=== PATIENT | female | born 1945 | race Hispanic/Latino ===

== ENCOUNTER 2017-07-03 09:19 | Emergency (ER) | payer OTHER ==
--- OUTSIDE RECORDS SUMMARY | 2017-07-03 09:20 | XMS REPORT | Clinical Summary ---
:1945 Author Organization [facility] Address [address] [place] [address] Care Team Providers Name Role Phone Jennifer Jennings MD Primary Care Provider Allergies Active Allergy Reactions Severity Noted Date Comments Aspirin 06/30/2016 Ciprofloxacin 06/30/2016 Meperidine 06/30/2016 Egg Derived 06/30/2016 Levofloxacin 06/30/2016 Milk Containing Products 06/30/2016 Morphine 06/30/2016 Penicillins 06/30/2016 Pineapple 06/30/2016 Hydrocodone-Acetaminophen 06/30/2016 Current Medications Prescription Sig. Disp. Refills Start Date End Date Status bisoprolol 5 mg daily. 05/13/2016 Active (ZEBETA) 5 MG tablet dicyclomine 20 mg daily. 06/17/2016 Active (BENTYL) 20 mg tablet omeprazole 40 mg daily. 05/23/2016 Active (PriLOSEC) 40 MG capsule CREON 24,000 units 06/03/2016 Active 24,000-76,000 of lipase 4 -120,000 unit (four) times a capsule,delayed day. release(DR/EC) capsule pravastatin Take 40 mg by Active (PRAVACHOL) 40 MG mouth daily. tablet cholecalciferol, Take 1,000 Active vitamin D3, Units by mouth (VITAMIN D3) 1,000 daily. unit tablet linaclotide Take 145 mcg Active (LINZESS) 145 mcg by mouth daily capsule before breakfast. gabapentin TAKE ONE-HALF 21 tablet 1 10/21/2016 Active (NEURONTIN) 600 mg TABLET BY tablet MOUTH 3 TIMES A DAY FOR 14 DAYS traMADol (ULTRAM) Take 1 tablet 40 tablet 0 07/22/2016 08/05/2016 50 mg tablet (50 mg total) by mouth every 6 (six) hours as needed for severe pain for up to 14 days. gabapentin Take 0.5 21 tablet 0 07/22/2016 08/05/2016 (NEURONTIN) 600 mg tablets (300 tablet mg total) by mouth 3 (three) times a day for 14 days. docusate sodium Take 1 capsule 60 capsule 0 07/22/2016 08/21/2016 (COLACE) 100 MG (100 mg total) capsule by mouth 2 (two) times a day for 30 days. gabapentin 08/12/2016 10/18/2016 Discontinued (NEURONTIN) 600 mg tablet traMADol (ULTRAM) Take 50 mg by 08/17/2016 Discontinued 50 mg tablet mouth every 6 (six) hours as needed for moderate pain. traMADol (ULTRAM) Take 1 tablet 30 tablet 0 08/17/2016 09/16/2016 50 mg tablet (50 mg total) by mouth every 6 (six) hours as needed for moderate pain for up to 30 days. Active Problems Problem Noted Date Nodule of right lung 07/21/2016 Encounters Date Type Specialty Care Team Description 11/16/2016 Refill Cardiothoracic [facility] Sharita Charles, ROLL CAPPER 10/21/2016 Telephone Cardiothor[facility] Sharita Charles, ROLL CAPPER 10/18/2016 Refill Cardiothoracic Dionne Donis, ROLL CAPPER 09/21/2016 Telephone Cardiothoracic Dionne Donis, ROLL CAPPER 09/20/2016 Refill Cardiothoracic [facility] Surgery Sharita Charles, ROLL CAPPER 08/17/2016 Office Visit Cardiothoracic Nelson Dailey follow-up examination (Primary Dx); Surgery MD Corazon Metastatic breast cancer; Malignant neoplasm metastatic to right lung; Nodule of right lung 08/13/2016 Telephone Cardiothoracic Yoselin Cast Surgery MA 07/24/2016 Telephone Cardiothoracic Nelson Dailey MD 07/23/2016 Telephone Cardiothoracic Nelson Dailey MD 07/22/2016 Patient Outreach Quality Genie Summers RN 07/21/2016 Hospital Cardiology [facility] - Encounter MD Corazon 07/22/2016 07/21/2016 Anesthesia Event Cardiothoracic Renu Hahn Surgery Angelina, LANDSCAPE ENGINEER 07/21/2016 Procedure Pass Cardiothoracic Surgery 07/21/2016 Surgery Cardiothoracic Nelson Dailey ROBOTIC ASSISTED Surgery MD Corazon THORACOSCOPIC RIGHT LOWER LOBE WEDGE RESECTION 07/20/2016 Telephone Cardiothoracic [facility], Dionne Charles NP 07/09/2016 Hospital Procedural Cardiology Nelson Dailey Lung nodule; Encounter MD Corazon Essential hypertension; Hyperlipidemia, unspecified hyperlipidemia type; Preop examination 07/09/2016 [facility] Encounter MD Corazon 07/09/2016 [facility] MD Corazon 07/09/2016 [facility] MD Corazon after 07/02/2016 Family History Medical History Relation Name Comments Colon cancer Father Alzheimer's disease Mother Diabetes Mother Breast cancer Sister Pancreatic cancer Sister Breast cancer Sister Parkinsonism Sister Breast cancer Sister Tongue cancer Sister Relation Name Status Comments Father Mother Sister Sister Sister Social History Tobacco Use Types Packs/Day Years Used Date Never Smoker Alcohol Use Drinks/Week oz/Week Comments No Sex Assigned at Date Recorded Not on file Last Filed Vital Signs Vital Sign Reading Time Taken Blood Pressure 145/67 08/17/2016 10:14 AM CDT Pulse 68 08/17/2016 10:14 AM CDT Temperature 36.3 C (97.3 F) 08/17/2016 10:14 AM CDT Respiratory Rate 18 07/22/2016 11:03 AM CDT Oxygen Saturation 97% 08/17/2016 10:14 AM CDT Inhaled Oxygen Concentration - - Weight 65.2 kg (143 lb 12.8 oz) 08/17/2016 10:14 AM CDT Height 149.9 cm (4' 11") 08/17/2016 10:14 AM CDT Body Mass Index 29.04 08/17/2016 10:14 AM CDT Plan of Treatment Health Maintenance Due Date Last Done Comments COLONOSCOPY 12/21/1993 MAMMOGRAM 12/21/1993 ZOSTER VACCINE 2003 PNEUMOCOCCAL POLYSACCHARIDE VACCINE AGE 65 AND OVER 12/21/2008 PNEUMOCOCCAL-13 12/21/2008 INFLUENZA VACCINE 11/17/2016 Implants Implanted Type Area Contract Assistant Device Expiration Model / Identifier Date Serial / Lot Kit Selnt Plrl Air Leak 4ml Strl Progel - [id number] Surgical N/A: N/A [employer] [id number] / Implanted: 07/21/2016 (Quantity not on file) Implants; / Expanders; Extenders; Surgical Wires Procedures Procedure Name Priority Date/Time Associated Diagnosis Comments CENTRAL LINE Routine 07/21/2016 9:11 AM CDT Procedure Note - Renu Hahn CRNA - 07/21/2016 9:11 AM CDT Central line Performed by: RENU HAHN Authorized by: YANNI DAVEY Patient Location: OR Staff: Anesthesiologist: YANNI DAVEY Resident/LANDSCAPE ENGINEER: RENU HAHN Performed by: Resident/LANDSCAPE ENGINEER Preprocedure:patient identified, IV checked, site and side verified, risks and benefits discussed, procedure verified, surgical consent complete, patient position confirmed, monitors and equipment checked and pre-op evaluation complete MSBT: antiseptic used during central venous catheter insertion, all elements of maximal sterile barrier technique followed, hand hygiene performed prior to central venous catheter insertion, cap/gown used by other personnel during central venous catheter insertion, solutions labeled and all ports not used during insertion clamped Indications: Indications: Vascular access Anesthesia: Anesthesia: General Procedure details: Patient position: Supine Catheter Type: Single lumen Catheter Size: 8 Fr Catheter Site: internal jugular vein Catheter site laterality: Right Pre-procedure: Landmarks identified Ultrasound guidance used: Yes Ultrasound image saved: No Number of attempts: 1 Successful placement: Yes Guidewire removal: Guidewire removal is confirmed Guidewire removal witnessed by: ROMAINE MCCALL Post-procedure: Post-procedure: line sutured, sterile dressing applied per protocol and ports flushed with saline Post-procedure: Blood cleaned with CHG and sterile caps on all hubs Assessment: Blood return through all ports and free fluid flow Patient tolerance: Patient tolerated the procedure well with no immediate complications ARTERIAL LINE Routine 07/21/2016 9:11 AM CDT Procedure Note - Renu Hahn CRNA - 07/21/2016 9:10 AM CDT Arterial line Performed by: RENU HAHN Authorized by: YANNI DAVEY Patient Location: Pre-op Staff: Anesthesiologist: YANNI DAVEY Resident/LANDSCAPE ENGINEER: RENU HAHN Performed by: Resident/SAMMY Pre-procedure: patient identified, IV checked, site and side verified, risks and benefits discussed, procedure verified, surgical consent complete, patient position confirmed, monitors and equipment checked and pre-op evaluation complete MSBT: antiseptic used, all elements of maximal sterile barrier technique followed, hand hygiene performed, cap/gown used by other personnel and solutions labeled Indications: Indications: multiple ABGs and hemodynamic monitoring Anesthesia: Anesthesia: Local infiltration Procedure Details: Arterial Line placement: Placed pre-induction Line placement site: Radial Line placement side: Left Arterial line gauge: 20 G Number of attempts: 1 Ultrasound guidance used: No Post-procedure: Post-procedure: Sterile dressing applied Post procedure circulation, sensation, movement: Normal Patient tolerance: Patient tolerated the procedure well with no immediate complications ANESTHESIA INTUBATION Routine 07/21/2016 9:10 AM CDT Procedure Note - Renu Hahn CRNA - 07/21/2016 9:09 AM CDT Airway Performed by: YANNI DAVEY Authorized by: YANNI DAVEY Location: OR Urgency: Elective Difficult Airway: No Resident/LANDSCAPE ENGINEER: RENU HAHN Performed by: resident/LANDSCAPE ENGINEER Preoxygenated with 100% O2: Yes C-spine Precautions Maintained Throughout: Yes Mask Ventilation: Easy mask Final Airway Type: Endotracheal airway Final Endotracheal Airway: ETT - double lumen left Cuffed: Yes Technique Used: Direct laryngoscopy Insertion Site: Oral Blade Type: Flanagan Laryngoscope Blade/Videolaryngoscope Blade Size: 2 ETT Double Lumen (fr): 37 Cuff at minimum occlusion pressure: Yes Measured from: Lips Placement Verified by: CO2 detection, direct visualization, equal breath sounds and fiber optic visualization Laryngoscopic view: Grade I - full view of glottis Rapid Sequence Induction (RSI): No Modified RSI: No Number of Attempts at Approach: 1 ECHOCARDIOGRAM 2D Routine 07/09/2016 Lung nodule Results for COMPLETE W MMODE 3:08 PM CDT Essential hypertension this SPECTRAL COLOR Hyperlipidemia, unspecified procedure DOPPLER (25301) hyperlipidemia type are in the Preop examination results section. after 07/02/2016 Results XR Chest 1 Vw Portable (07/22/2016 12:36 PM)Only the most recent of4 resultswithin the time period is included. Specimen Performing Laboratory [facility] [address] [place] [address] Narrative EXAMINATION:XR CHEST 1 VW PORTABLE CLINICAL HISTORY:Pneumothorax COMPARISON:07/22/2016 IMPRESSION: 1.Right IJ line has been removed. A previously noted right apical pneumothorax on prior from same day is not definitively identified on the current examination. Continued follow-up is recommended. 2.Examination is otherwise not changed. [facility]-[id number] Procedure Note [facility], Radiology Results Incoming - 07/22/2016 12:44 PM CDT EXAMINATION: XR CHEST 1 VW PORTABLE CLINICAL HISTORY: Pneumothorax COMPARISON: 07/22/2016 IMPRESSION: 1.Right IJ line has been removed. A previously noted right apical pneumothorax on prior from same day is not definitively identified on the current examination. Continued follow-up is recommended. 2.Examination is otherwise not changed. [facility]-[id number] Estimated GFR (07/22/2016 5:37 AM) Component Value Ref Range GFR Non Af Amer 82 mL/min/1.73 m2 GFR Af Amer >90 mL/min/1.73 m2 Comment: Chronic kidney disease: <60 mL/min/1.73m2 Kidney failure: <15 mL/min/1.73m2 The estimated GFR is calculated from the IDMS-traceable Modification of Diet in Renal Disease Equation. The accuracy of the calculation is poor when the creatinine is normal. Calculated values >90 mL/min/1.73m2 are not reported. This equation has not been validated in children (<18 years), women, the elderly (>70 years), or ethnic groups other than Caucasians and Americans. Specimen Performing Laboratory Plasma specimen [facility] DEPARTMENT OF PATHOLOGY AND GENOMIC MEDICINE [address] [place] [id number] CBC with platelet and differential (07/22/2016 5:37 AM) Component Value Ref Range WBC 7.00 4.50 - 11.00 k/uL RBC 3.87 (L) 4.20 - 5.50 m/uL HGB 11.6 (L) 12.0 - 16.0 g/dL HCT 34.8 (L) 37.0 - 47.0 % MCV 89.9 82.0 - 100.0 fL MCH 30.0 27.0 - 34.0 pg MCHC 33.3 31.0 - 37.0 g/dL RDW - SD 42.3 37.0 - 55.0 fL MPV 10.7 8.8 - 13.2 fL Platelet count 163 150 - 400 k/uL Nucleated RBC 0.00 /100 WBC Neutrophils 73.1 (H) 39.0 - 69.0 % Lymphocytes 19.6 (L) 25.0 - 45.0 % Monocytes 5.0 0.0 - 10.0 % Eosinophils 1.0 0.0 - 5.0 % Basophils 0.4 0.0 - 1.0 % Immature granulocytes 0.9Comment: "Immature granulocytes" 0.0 - 1.0 % (promyelocytes, myelocytes, metamyelocytes) Specimen Performing Laboratory Blood [facility] DEPARTMENT PATHOLOGY AND [address] [address] Phosphorus level (07/22/2016 5:37 AM) Component Value Ref Range Phosphorus 2.5 2.4 - 4.5 mg/dL Specimen Performing Laboratory Plasma specimen [facility] PATHOLOG[facility] [address] [address] Magnesium level (07/22/2016 5:37 AM) Component Value Ref Range Magnesium 2.1 1.6 - 2.4 mg/dL Specimen Performing Laboratory Plasma specimen [facility] DEPARTMENT PATHOLOGY [address] [address] Basic metabolic panel (07/22/2016 5:37 AM) Component Value Ref Range Sodium 139 135 - 148 mEq/L Potassium 3.9 3.5 - 5.0 mEq/L Chloride 103 98 - 112 mEq/L CO2 27 24 - 31 mEq/L Anion gap 9 7 - 15 mEq/L Comment: Starting from July , anion gap calculation no longer incorporates potassium. Please note the change. BUN 11 8 - 23 mg/dL Creatinine 0.7 0.5 - 0.9 mg/dL Glucose 94 65 - 99 mg/dL Calcium 8.7 (L) 8.8 - 10.2 mg/dL Specimen Performing Laboratory Plasma specimen [facility] DEPARTMENT PATHOLOGY [address] [address] Sodium level, syringe (07/21/2016 10:11 AM)Only the most recent of2 resultswithin the time period is included. Component Value Ref Range Sodium, syringe 139 135 - 148 mEq/L Specimen Performing Laboratory Blood [facility] [address] [address] Potassium, syringe (07/21/2016 10:11 AM)Only the most recent of2 resultswithin the time period is included. Component Value Ref Range Potassium, syringe 4.3 3.5 - 5.0 mEq/L Specimen Performing Laboratory Blood [facility] DEPARTMENT OF PATHOLOGY [address] [address] Ionized calcium, arterial (07/21/2016 10:11 AM)Only the most recent of2 resultswithin the time period is included. Component Value Ref Range Ionized calcium, arterial 1.24 1.11 - 1.32 mmol/L Specimen Performing Laboratory Blood [facility] [address] [address] Hemoglobin, syringe (07/21/2016 10:11 AM)Only the most recent of2 resultswithin the time period is included. Component Value Ref Range Hemoglobin, syringe 12.4 12.0 - 16.0 g/dL Specimen Performing Laboratory Blood [facility] [address] Glucose level, syringe (07/21/2016 10:11 AM)Only the most recent of2 resultswithin the time period is included. Component Value Ref Range Glucose, syringe 130 (H) 65 - 99 mg/dL Specimen Performing Laboratory Blood [facility] [place] [address] Arterial blood gas, corrected (07/21/2016 10:11 AM)Only the most recent of2 resultswithin the time period is included. Component Value Ref Range pH, arterial 7.29 (L) 7.35 - 7.45 pCO2, arterial 48 (H) 35 - 45 mmHg pO2, arterial 135 (H) 80 - 90 mmHg Temperature, Celsius 37.0 Degrees C O2 saturation, arterial 99 95 - 100 % pH, arterial corrected 7.29 pCO2, arterial corrected 48 mmHg pO2, arterial corrected 135 mmHg Base excess, arterial -4 (L) -2 - 2 mEq/L Specimen Performing Laboratory Blood [facility] [address] [address] Surgical pathology request (07/21/2016 9:44 AM) Component Value Ref Range Surgical pathology report See link below for PDF Lab Report Specimen Performing Laboratory [facility] [address] Prepare RBC (07/21/2016 7:05 AM) Component Value Ref Range Product name Red Blood Cells -1, Leukored Unit number [id number] Product code [id number] Dispense status Returned to BB not transfused Blood expiration date 20160819 Blood type code 5100 Blood type O POSITIVE Product name Red Blood Cells -1, Leukored Unit number [id number] Product code [id number] Dispense status Returned to BB not transfused Blood expiration date 20160818 Blood type code 5100 Blood type O POSITIVE Specimen Performing Laboratory [facility] DEPARTMENT OF PATHOLOGY AND GENOMIC MEDICINE [address] [place] [address] Type and screen (07/21/2016 7:05 AM) Component Value Ref Range ABO grouping O Rh type POS Antibody screen (gel) NEG Specimen Performing Laboratory Blood [facility] [place]PARTMENT [place] [address] Echocardiogram complete w contrast and 3D if needed (07/09/2016 3:08 PM) Specimen [facility] [address] [place] [address] Narrative Echocardiography Report [address] [place] [address] Pat.Name:DEBORAH NICOLE Pat.ID:[id number] .Date: 07/09/2016 Refer.MD:NELSON RIVERA MD Exam Time: 12:52:00 PM Study Type:Routine Echo Height:59inWeight:139lb BSA: 1.58 m2 DOBAge:1945,70Y Sex: FEMALEBP:164/75 HR:74 bpm Sonogrphr: Fransisca Mortensen RDCS, RVT Pat. Stat.:OutpatientRoom:Live Study Status:Final Echo Event ID:[id number] Order ID:[id number] Reason for Study:pre op History / Clinical:Hyperlipidemia, Hypertension Procedures:2D Echo, Colorflow Doppler Race:C FINDINGS: LV: LV size is normal. LV function is hyperdynamic. Overall wall motionis hyperdynamic. Estimated EF is >70%. RV: RV size is normal. RV function is normal. LA: LA size is normal. RA: RA size is normal. AO: Aortic root diameter is normal. ALEXYS: No pericardial effusion. AV: Focal calcification of AV leaflets. Mild aortic regurgitation. MV: No structural MV abnormalities noted. PV: Pulmonic valve not well seen. A trace of pulmonic regurgitation. TV: No structural TV abnormalities noted. [place]: LV filling pressure is normal. Other:Insufficient TR jet to estimate PA systolic pressure. MEASUREMENTS: 2D Parasternal [place] LVIDd4.4 cmIndex 2.8 cm/m LVPWd0.7 cm LVIDs2.7 cmLA Ds3.6 cm LV%fs 38 % Ao Rtd 2.6 cm Index1.7 cm/m IVSd 0.9 cm LA Sng Plane LA Area 14.1 cm2(8.8-23.4) LA Vol32.7 ml Index20.7 ml/m LA LngAx 5 cm Signed 07/10/2016 04:49 PM Brodie Velazquez M.D. Procedure Note Interface, Radiology Results In - 07/10/2016 4:49 PM CDT Echocardiography Report [address] [place] [address] Pat.Name: DEBORAH NICOLE Pat.ID: [id number] .Date: 07/09/2016 Refer.MD: NELSON RIVERA MD Exam Time: 12:52:00 PM Study Type:Routine Echo Height: 59in Weight: 139lb BSA: 1.58 m2 Age: 9 1945,70Y Sex: FEMALE BP: 164/75 HR: 74 bpm Sonogrphr: Fransisca Mortensen RDCS, RVT Pat. Stat.:Outpatient Room: Live Study Status:Final Echo Event ID:[id number] Order ID: [id number] Reason for Study:pre op History / Clinical:Hyperlipidemia, Hypertension Procedures:2D Echo, Colorflow Doppler Race: C FINDINGS: LV: LV size is normal. LV function is hyperdynamic. Overall wall motion is hyperdynamic. Estimated EF is >70%. RV: RV size is normal. RV function is normal. LA: LA size is normal. RA: RA size is normal. AO: Aortic root diameter is normal. ALEXYS: No pericardial effusion. AV: Focal calcification of AV leaflets. Mild aortic regurgitation. MV: No structural MV abnormalities noted. PV: Pulmonic valve not well seen. A trace of pulmonic regurgitation. TV: No structural TV abnormalities noted. [place]: LV filling pressure is normal. Other: Insufficient TR jet to estimate PA systolic pressure. MEASUREMENTS: 2D Parasternal [place] LVIDd 4.4 cm Index 2.8 cm/m LVPWd 0.7 cm LVIDs 2.7 cm LA Ds 3.6 cm LV%fs 38 % Ao Rtd 2.6 cm Index 1.7 cm/m IVSd 0.9 cm LA Sng Plane LA Area 14.1 cm2 (8.8-23.4) LA Vol 32.7 ml Index 20.7 ml/m LA LngAx 5 cm Signed 07/10/2016 04:49 PM Brodie Velazquez M.D. CT Chest Wo Contrast (07/09/2016 1:25 PM) Specimen Performing Laboratory [facility] [address] [place] [address] Narrative EXAMINATION: CT CHEST WO CONTRAST CLINICAL HISTORY: NODULE ON CTLUNG Order diagnosis - Solitary pulmonary nodule TECHNIQUE: Multiple axial images of the chest were obtained without intravenous contrast. The lack of intravenous contrast reduces the sensitivity of detecting solid organ disease and evaluating vasculature. Sagittal and coronal computerized reformatted images were also obtained.Automatic exposure control and iterative reconstruction techniques used to reduce dose. COMPARISON: June 05, 2016, January 20, 2016 October 18, 2015 FINDINGS: An approximately 1.0 x 0.8 cm nodule peripherally in the right lower lobe has increased in size from June 05 where it measured approximately 0 6 x 0.6 cm. There has been interval development of a second 0.8 x 0.5 cm lobulated nodule slightly inferior medially also in the right lower lobe. There has been interval development of a new 0.5 cm nodule in the right lower lobe just posterior and inferior to the right minor fissure, 0.5 cm nodule in the right upper lobe, a 0.6 cm nodule anteriorly in the left upper lobe and a 0.4 cm nodule anteriorly in the right upper lobe. All of these nodules are worrisome for metastatic disease. A 1.1 cm ill-defined nodules present in the left thyroid gland further evaluation with ultrasound is recommended Enlarged right axillary lymph nodes measuring up to a 2 cm worrisome for metastatic disease. The patient is status post right mastectomy No mediastinal lymphadenopathy is present. No pleural or pericardial effusions are present. Images of the upper abdomen are unremarkable. No definite focal lesions in the left breast however mammography is much more sensitive Degenerative changes are present throughout the bony structures without evidence of a suspicious focal lesion.. IMPRESSION: Interval increase in size of a nodule peripherally in the right lower lobe as well as interval development of multiple bilateral pulmonary nodules as described above all compatible with metastatic disease. Interval development of enlarged right axillary lymph nodes worrisome for metastatic disease as well. A subcentimeter low-density focus with a central calcification in the left adrenal gland is stable from prior and most likely represents an adenoma 1 cm hypodensity in the left lobe of the thyroid gland would be better evaluated with ultrasound. [facility]-[id number] Procedure Note [facility], Radiology Results Incoming - 07/09/2016 1:47 PM CDT EXAMINATION: CT CHEST WO CONTRAST CLINICAL HISTORY: NODULE ON CT LUNG Order diagnosis - Solitary pulmonary nodule TECHNIQUE: Multiple axial images of the chest were obtained without intravenous contrast. The lack of intravenous contrast reduces the sensitivity of detecting solid organ disease and evaluating vasculature. Sagittal and coronal computerized reformatted images were also obtained.Automatic exposure control and iterative reconstruction techniques used to reduce dose. COMPARISON: June 05, 2016, January 20, 2016 October 18, 2015 FINDINGS: An approximately 1.0 x 0.8 cm nodule peripherally in the right lower lobe has increased in size from June 05 where it measured approximately 0 6 x 0.6 cm. There has been interval development of a second 0.8 x 0.5 cm lobulated nodule slightly inferior medially also in the right lower lobe. There has been interval development of a new 0.5 cm nodule in the right lower lobe just posterior and inferior to the right minor fissure, 0.5 cm nodule in the right upper lobe, a 0.6 cm nodule anteriorly in the left upper lobe and a 0.4 cm nodule anteriorly in the right upper lobe. All of these nodules are worrisome for metastatic disease. A 1.1 cm ill-defined nodules present in the left thyroid gland further evaluation with ultrasound is recommended Enlarged right axillary lymph nodes measuring up to a 2 cm worrisome for metastatic disease. The patient is status post right mastectomy No mediastinal lymphadenopathy is present. No pleural or pericardial effusions are present. Images of the upper abdomen are unremarkable. No definite focal lesions in the left breast however mammography is much more sensitive Degenerative changes are present throughout the bony structures without evidence of a suspicious focal lesion.. IMPRESSION: Interval increase in size of a nodule peripherally in the right lower lobe as well as interval development of multiple bilateral pulmonary nodules as described above all compatible with metastatic disease. Interval development of enlarged right axillary lymph nodes worrisome for metastatic disease as well. A subcentimeter low-density focus with a central calcification in the left adrenal gland is stable from prior and most likely represents an adenoma 1 cm hypodensity in the left lobe of the thyroid gland would be better evaluated with ultrasound. [facility]-[id number] after 07/02/2016 Insurance Payer Benefit Plan / Group Subscriber ID Type Phone Address [facility] x[facility] O [phone] [place] [phone]
[2017-07-03] MEDS ORDERED: NA CHLORIDE 0.9% 1,000 ML ONE ×2 (10:08→16:52)
[2017-07-03 10:57] LABS: Albumin 3.6 g/dL (3.2-5.5); Bilirubin Total 0.7 mg/dL (0.3-1.2); Protein, Total 6.1 g/dL (6.0-8.3)
[2017-07-03 11:02] LABS: Absolute Lymphocytes (CBC) 0.9 K/uL (0.7-4.9); Absolute Monocytes 0.2 K/uL (0.1-1.3); Absolute Neutrophil 1.7 K/uL (1.8-8.0); Basophils % 0.6 % (0-1.3); Eosinophils % 0.1 % (0-4.4); Hematocrit 31.8 % (36.0-45.0); Lymphocytes % 31.2 % (15.3-44.8); MCH 31.1 pg (27.0-35.0); MCV 89.4 fL (80-100); MPV 7.4 fL (7.6-11.3); RBC Red Blood Cell Count 3.56 M/uL (3.86-4.86)
[2017-07-03 13:11] LABS: Blood Morphology Comment NOT SEEN (NOT SEEN); Platelet Estimate ADEQ; Urine White Blood Cell Casts OK
[2017-07-03 13:44] LABS: Urine Blood NEGATIVE (NEG); Urine Glucose NEGATIVE (NEG); Urine Protein TRACE (NEG)
--- NOTE | 2017-07-03 16:15 | ER ---
Nurse's Notes [facility] Name: Deborah Nicole Age: 71 yrs Sex: Female : 1945 Arrival Date: 07/03/2017 Time: 09:21 Bed 8 Private MD: Jennifer Jennings Diagnosis: Dehydration Presentation: 07/03 09:23 Presenting complaint: Patient states: i cant pee since yesterday, i havent eaten hj anything for a week but Jello, and 2 days ago, i dont really have the urge to drink even drink water; been getting chemo tx; denies fever and chills;. Transition of care: patient was not received from another setting of care. Onset of symptoms was July 03, 2017. Care prior to arrival: None. 09:23 Method Of Arrival: Ambulatory 09:23 Acuity: TAMI 3 hj Triage Assessment: 09:28 General: Appears in no apparent distress. uncomfortable, Behavior is calm, cooperative, hj appropriate for age. Pain: Denies pain. Historical: - Allergies: 09:27 Aspirin; hj 09:27 Cipro PO; hj 09:27 Demerol; hj 09:27 Levaquin; hj 09:27 Lortab; hj 09:27 Morphine; hj 09:27 PENICILLINS; hj 09:27 Vicodin; hj 09:46 Milk/dairy products; sv 09:46 EGG/POULTRY; sv 09:46 Pineapple; sv - Home Meds: 09:46 bisoprolol fumarate 5 mg oral tab [Active]; dicyclomine 20 mg Oral tab daily [Active]; sv omeprazole 40 mg Oral cpDR 1 cap once daily [Active]; Creon oral oral [Active]; pravastatin 40 mg oral tab 1 tab once daily [Active]; gabapentin oral 500 mg oral 3 times per day [Active]; Vitamin D Oral 1,000 unit daily [Active]; 09:47 capecitabine oral oral [Active]; sv - PMHx: 09:27 BREAST CA; Hypertension; Irritable bowel syndrome; Pancreatitis; Right lung mass; skin hj ca; - PSHx: 09:27 breast cancer; Tubal ligation; skin cancer; Cholecystectomy; hj - Social history:: Patient/guardian denies using alcohol, street drugs, The patient lives with family. Screenin:16 Abuse screen: Denies threats or abuse. Denies injuries from another. Nutritional sg screening: No deficits noted. Tuberculosis screening: No symptoms or risk factors identified. Never had TB. Fall Risk None identified. Assessment: 09:30 Reassessment: pt assisted to the restroom, via wheelchair, by feeder driver Doreen. pt sg assisted back to exam room. 09:40 Reassessment: orders received to obtain the blood samples after the administration of 1 sg liter IV fluids. 10:10 Reassessment: pt assisted to restroom, via wheelchair with feeder driver doreen, pt assisted sg back to bed. 10:10 General: Appears in no apparent distress. comfortable, well groomed, well developed, sg well nourished, Behavior is calm, cooperative, appropriate for age. Pain: Denies pain. Neuro: Level of Consciousness is awake, alert, obeys commands, Oriented to person, place, time, Textile Engineer are equal bilaterally Moves all extremities. Full function Gait is unsteady, Speech is normal, Facial symmetry appears normal, Reports weakness. Cardiovascular: Heart tones S1 S2 present Capillary refill is brisk in bilateral fingers Patient's skin is warm and dry. Respiratory: Airway is patent Respiratory effort is even, unlabored, Respiratory pattern is regular, symmetrical. : No signs and/or symptoms were reported regarding the genitourinary system. EENT: No signs and/or symptoms were reported regarding the EENT system. Derm: Skin is intact, is thin, Skin is dry, Skin is pale, Skin temperature is warm. Musculoskeletal: Circulation, motion, and sensation intact. Range of motion: intact in all extremities. 10:22 GI: Last BM was July 03, 2017. Reports normal bowel habits. sg 15:30 Reassessment: assisted patient to restroom VIA wheelchair. ss 16:45 Reassessment: pt is up for discharge, awaiting for additional NS bolus to infuse prior ss to discharge. Pt and family are grateful for care received. Vital Signs: 09:28 BP 113 / 86; Pulse 95; Resp 18; Temp 97.1(TE); Pulse Ox 98% on R/A; Weight 62.14 kg; hj Height 4 ft. 11 in. (149.86 cm); Pain 0/10; 11:28 BP 107 / 62; Pulse 76; Resp 18; Pulse Ox 98% on R/A; bm6 12:03 BP 114 / 53; Pulse 63; Resp 19; Pulse Ox 100% on R/A; sv 13:00 BP 102 / 58; Pulse 64; Resp 16; Pulse Ox 100% ; sv 14:00 BP 116 / 65; Pulse 64; Resp 18; Pulse Ox 100% ; sv 15:00 BP 116 / 59; Pulse 68; Resp 18; Pulse Ox 100% ; sv 16:05 BP 113 / 59; Pulse 65; Resp 18; Pulse Ox 100% on R/A; mh5 17:54 BP 145 / 77; Pulse 66; Resp 18; Pulse Ox 100% ; sv 09:28 Body Mass Index 27.67 (62.14 kg, 149.86 cm) ED Course: 09:21 Patient arrived in ED. mr 09:22 Jennifer Jennings MD is Private Physician. mr 09:26 Triage completed. hj 09:28 Arm band placed on left wrist. hj 09:32 Maikel Lang, DAVID is Primary Nurse. sg 09:35 Franco Mccullough MD is Attending Physician. ma2 10:16 Initial lab(s) drawn, by ED staff, sent to lab. Inserted saline lock: 22 gauge in left sg antecubital area, using aseptic technique. Blood collected. 12:25 CBC with Diff Sent. sv 12:25 CMP Sent. sv 18:00 No provider procedures requiring assistance completed. IV discontinued, intact, ss bleeding controlled, No redness/swelling at site. Pressure dressing applied. Administered Medications: 10:10 Drug: NS 0.9% 1000 ml Route: IV; Rate: 1 bolus; Site: left antecubital; sg 12:00 Follow up: IV Status: Completed infusion; IV Intake: 1000ml ss 16:43 Drug: NS 0.9% 1000 ml Route: IV; Rate: 1 bolus; Site: left antecubital; ss Intake: 12:00 IV: 1000ml; Total: 1000ml. Outcome: 16:14 Discharge ordered by . ma2 18:00 Discharged to home via ambulance. ss 18:00 Condition: good 18:00 Discharge instructions given to patient, family, Instructed on discharge instructions, follow up and referral plans. Demonstrated understanding of instructions, follow-up care. 18:01 Patient left the ED. Signatures: Renu Calvo RN RN Lang, Maikel, RN RN sg Sabina Fink, Dennise, RN RN ss Juan Spencer RN RN hj Murray, Brett [facility] Sabina Delgado [facility] Franco Mccullough MD MD ma2 Corrections: (The following items were deleted from the chart) 09:30 09:28 Pulse 95bpm; Resp 18bpm; Pulse Ox 98% RA; Temp 97.1F Temporal; 62.14 kg; Height 4 hj ft. 11 in.; BMI: 27.6; Pain 0/10; hj
--- NOTE | 2017-07-03 16:15 | EDPHYS ---
Physician Documentation [facility] Name: Deborah Nicole Age: 71 yrs Sex: Female : 1945 Arrival Date: 07/03/2017 Time: 09:21 Bed 8 Private MD: Jennifer Jennings ED Physician Franco Mccullough HPI: 07/03 10:16 This 71 yrs old Female presents to ER via Ambulatory with complaints of ma2 Dehydrated. 10:16 The patient presents with decreased UOP. Onset: The symptoms/episode began/occurred ma2 gradually, 4 day(s) ago. Associated signs and symptoms: Pertinent positives:. Severity of symptoms: At their worst the symptoms were moderate. she is here with dehydration and decrease UOP, she has decreased po intake d/t mouth ulcers in the setting of chemotherapy for breast ca. however, over last 24 hrs mouth ulcers got better and started to eat and drink this morning. . Historical: - Allergies: 09:27 Aspirin; hj 09:27 Cipro PO; hj 09:27 Demerol; hj 09:27 Levaquin; hj 09:27 Lortab; hj 09:27 Morphine; hj 09:27 PENICILLINS; hj 09:27 Vicodin; hj 09:46 Milk/dairy products; sv 09:46 EGG/POULTRY; sv 09:46 Pineapple; sv - Home Meds: 09:46 bisoprolol fumarate 5 mg oral tab [Active]; dicyclomine 20 mg Oral tab daily [Active]; sv omeprazole 40 mg Oral cpDR 1 cap once daily [Active]; Creon oral oral [Active]; pravastatin 40 mg oral tab 1 tab once daily [Active]; gabapentin oral 500 mg oral 3 times per day [Active]; Vitamin D Oral 1,000 unit daily [Active]; 09:47 capecitabine oral oral [Active]; sv - PMHx: 09:27 BREAST CA; Hypertension; Irritable bowel syndrome; Pancreatitis; Right lung mass; skin hj ca; - PSHx: 09:27 breast cancer; Tubal ligation; skin cancer; Cholecystectomy; hj - Social history:: Patient/guardian denies using alcohol, street drugs, The patient lives with family. ROS: 10:16 Eyes: Negative for injury, pain, redness, and discharge, ENT: Negative for injury, ma2 pain, and discharge, Cardiovascular: Negative for chest pain, palpitations, and edema, Respiratory: Negative for shortness of breath, cough, wheezing, and pleuritic chest pain, Abdomen/GI: Negative for abdominal pain, nausea, diarrhea, and constipation, Back: Negative for injury and pain, : Negative for injury, bleeding, discharge, and swelling, MS/Extremity: Negative for injury and deformity, Skin: Negative for injury, rash, and discoloration, Neuro: Negative for headache, weakness, numbness, tingling, and seizure, Psych: Negative for depression, anxiety, suicide ideation, homicidal ideation, and hallucinations, Allergy/Immunology: Negative for hives, rash, and allergies, Endocrine: Negative for neck swelling, polydipsia, polyuria, polyphagia, and marked weight changes, Hematologic/Lymphatic: Negative for swollen nodes, abnormal bleeding, and unusual bruising. Exam: 10:16 Constitutional: This is a well developed, well nourished patient who is awake, alert, ma2 and in no acute distress. Head/Face: Normocephalic, atraumatic. Chest/axilla: Normal chest wall appearance and motion. Nontender with no deformity. No lesions are appreciated. Cardiovascular: Regular rate and rhythm with a normal S1 and S2. No gallops, murmurs, or rubs. Normal PMI, no JVD. No pulse deficits. Respiratory: Lungs have equal breath sounds bilaterally, clear to auscultation and percussion. No rales, rhonchi or wheezes noted. No increased work of breathing, no retractions or nasal flaring. Abdomen/GI: Soft, non-tender, with normal bowel sounds. No distension or tympany. No guarding or rebound. No evidence of tenderness throughout. Neuro: Awake and alert, GCS 15, oriented to person, place, time, and situation. Cranial nerves II-XII grossly intact. Motor strength 5/5 in all extremities. Sensory grossly intact. Cerebellar exam normal. Normal gait. Vital Signs: 09:28 BP 113 / 86; Pulse 95; Resp 18; Temp 97.1(TE); Pulse Ox 98% on R/A; Weight 62.14 kg; hj Height 4 ft. 11 in. (149.86 cm); Pain 0/10; 11:28 BP 107 / 62; Pulse 76; Resp 18; Pulse Ox 98% on R/A; bm6 12:03 BP 114 / 53; Pulse 63; Resp 19; Pulse Ox 100% on R/A; sv 13:00 BP 102 / 58; Pulse 64; Resp 16; Pulse Ox 100% ; sv 14:00 BP 116 / 65; Pulse 64; Resp 18; Pulse Ox 100% ; sv 15:00 BP 116 / 59; Pulse 68; Resp 18; Pulse Ox 100% ; sv 16:05 BP 113 / 59; Pulse 65; Resp 18; Pulse Ox 100% on R/A; mh5 17:54 BP 145 / 77; Pulse 66; Resp 18; Pulse Ox 100% ; sv 09:28 Body Mass Index 27.67 (62.14 kg, 149.86 cm) hj MDM: 09:35 Patient medically screened. co2 10:16 Differential diagnosis: urinary tract infection, dehydration, SHARMILA, others. [facility] 16:11 Data reviewed: vital signs, nurses notes, EMS record. Test interpretation: by ED [facility] physician or midlevel provider: ECG, plain radiologic studies. Counseling: I had a detailed discussion with the patient and/or guardian regarding: the historical points, exam findings, and any diagnostic results supporting the discharge/admit diagnosis, the presence of at least one elevated blood pressure reading (>120/80) during this emergency department visit, the need for outpatient follow up. Medical screen evaluation completed. EMTALA emergency medical condition absent. 16:11 ED course: lab ua wnl, received 2 L IV, she is able to take po had urine output . [facility] 07/03 09:42 Order name: CMP [facility] 07/03 09:42 Order name: CBC with Diff [facility] 07/03 09:42 Order name: UA [facility] 07/03 10:54 Order name: Comprehensive Metabolic Panel; Complete Time: 11:54 EDAZ 07/03 11:04 Order name: CBC with Automated Diff; Complete Time: 13:26 EDMS 07/03 13:11 Order name: CBC Smear Scan; Complete Time: 13:26 EDAZ 07/03 12:25 Order name: Urine Dipstick-Ancillary (obtain specimen); Complete Time: 13:48 sv 07/03 13:28 Order name: Urine Dipstick--Ancillary (enter results) al 07/03 13:45 Order name: Urine Dipstick-Ancillary; Complete Time: 16:11 EDMS Administered Medications: 10:10 Drug: NS 0.9% 1000 ml Route: IV; Rate: 1 bolus; Site: left antecubital; 12:00 Follow up: IV Status: Completed infusion; IV Intake: 1000ml 16:43 Drug: NS 0.9% 1000 ml Route: IV; Rate: 1 bolus; Site: left antecubital; Disposition: 07/03/17 16:14 Discharged to Home. Impression: Dehydration. - Condition is Stable. - Discharge Instructions: Dehydration, Elderly. - Medication Reconciliation Form, Thank You Letter, Antibiotic Education, Prescription Opioid Use form. - Follow up: Private Physician; When: Tomorrow; Reason: Continuance of care. - Problem is new. - Symptoms are resolved. Signatures: Dispatcher [employer] Renu Hull, Maikel Cha RN, RN RN sg Smirch, Shelby, RN RN Juan Spencer RN RN Franco Mccullough MD MD ma2
== END 2017-07-03 18:01 | disposition home or self-care (01) ==
LOC: ER 09:19
DX: E86.0 Dehydration (principal); I10 Essential (primary) hypertension; Z85.3 Personal history of malignant neoplasm of breast; Z85.828 Personal history of other malignant neoplasm of skin; Z88.0 Allergy status to penicillin; Z88.1 Allergy status to other antibiotic agents; Z88.3 Allergy status to other anti-infective agents; Z88.5 Allergy status to narcotic agent; Z88.6 Allergy status to analgesic agent; Z91.011 Allergy to milk products; Z91.012 Allergy to eggs; Z91.018 Allergy to other foods
CPT/HCPCS: 36415; 80053; 81003; 85025; 96360; 96361; 99284; J7030 ×2

== ENCOUNTER 2017-07-16 04:30 | Inpatient (IN) | payer OTHER ==
--- OUTSIDE RECORDS SUMMARY | 2017-07-16 04:32 | XMS REPORT | Clinical Summary ---
:1945 Author Organization [facility] Address [address] [place] [address] Care Team Providers Name Role Phone Jennifer [...] 11/16/2016 Refill Cardiothoracic Jewels Surgery Sharita Charles, CONTACT ACID PLANT OPERATOR 10/21/2016 Telephone Cardiothoracic Jewels Surgery Sharita Charles, CONTACT ACID PLANT OPERATOR 10/18/2016 Refill Cardiothoracic Dionne Donis, CONTACT ACID PLANT OPERATOR 09/21/2016 Telephone Cardiothoracic Dionne Donis, CONTACT ACID PLANT OPERATOR 09/20/2016 Refill Cardiothoracic Jewels Surgery Sharita Chalres, CONTACT ACID PLANT OPERATOR 08/17/2016 Office Visit Cardiothoracic Skylar Dailey follow-up examination (Primary Dx); Surgery MD Corazon Metastatic breast cancer; Malignant neoplasm metastatic to right lung; Nodule of right lung 08/13/2016 Telephone Cardiothoracic Yoselin Cast Surgery MA 07/24/2016 Telephone Cardiothoracic Skylar Dailey MD 07/23/2016 Telephone Cardiothoracic Skylar Dailey MD 07/22/2016 Patient Outreach Quality Genie Summers RN 07/21/2016 Hospital Cardiology [facility] - Encounter MD Corazon 07/22/2016 07/21/2016 Anesthesia Event Cardiothoracic Magalis Hahn Surgery SAMMY Alfaro 07/21/2016 Procedure Pass Cardiothoracic Surgery 07/21/2016 Surgery Cardiothoracic Skylar Dailey ROBOTIC ASSISTED Surgery MD Corazon THORACOSCOPIC RIGHT LOWER LOBE WEDGE RESECTION 07/20/2016 Telephone Cardiothoracic Dionne Donis NP after 07/15/2016 Family History Medical History Relation Name Comments [...] INFLUENZA VACCINE 11/17/2016 Implants Implanted Type Area Superintendent Horticulture Device Expiration Model / Identifier Date Serial / Lot Kit Selnt Plrl Air Leak 4ml Strl Progel - [id number] Surgical N/A: N/A [employer] [id number] / Implanted: 07/21/2016 (Quantity not on file) Implants; / Expanders; Extenders; Surgical Wires Procedures Procedure Name Priority Date/Time Associated Diagnosis Comments CENTRAL LINE Routine 07/21/2016 9:11 AM CDT Procedure Note - Magalis Hahn CRNA - 07/21/2016 9:11 AM CDT Central line Performed by: MAGALIS HAHN Authorized by: YANNI DAVEY Patient Location: OR Staff: Anesthesiologist: YANNI DAVEY Resident/MUNITIONS WORKER: MAGALIS HAHN Performed by: Resident/MUNITIONS WORKER Preprocedure:patient identified, IV checked, site and side [...] 07/21/2016 9:11 AM CDT Procedure Note - Magalis Hahn CRNA - 07/21/2016 9:10 AM CDT Arterial line Performed by: MAGALIS HAHN Authorized by: YANNI DAVEY Patient Location: Pre-op Staff: Anesthesiologist: YANNI DAVEY Resident/MUNITIONS WORKER: MAGALIS HAHN Performed by: Resident/MUNITIONS WORKER Pre-procedure: patient identified, IV checked, site and [...] 07/21/2016 9:10 AM CDT Procedure Note - Magalis Hahn CRNA - 07/21/2016 9:09 AM CDT Airway Performed by: YANNI DAVEY Authorized by: YANNI DAVEY Location: OR Urgency: Elective Difficult Airway: No Resident/MUNITIONS WORKER: MAGALIS HAHN Performed by: resident/MUNITIONS WORKER Preoxygenated with 100% O2: Yes C-spine Precautions [...] No Number of Attempts at Approach: 1 after 07/15/2016 Results XR Chest 1 Vw Portable (07/22/2016 12:36 PM)Only the most recent of4 resultswithin the time period is included. Specimen Performing Laboratory [facility] [address] [place] [address] Narrative EXAMINATION:XR CHEST 1 VW PORTABLE CLINICAL HISTORY:Pneumothorax COMPARISON:07/22/2016 IMPRESSION: 1.Right IJ line has been removed. A previously noted right apical pneumothorax on prior from same day is not definitively identified on the current examination. Continued follow-up is recommended. 2.Examination is otherwise not changed. [facility]-[id number] Procedure Note Interface, Radiology Results Incoming - 07/22/2016 12:44 PM CDT EXAMINATION: XR CHEST 1 VW PORTABLE CLINICAL HISTORY: Pneumothorax COMPARISON: 07/22/2016 IMPRESSION: 1.Right IJ line has been removed. A previously noted right apical pneumothorax on prior from same day is not definitively identified on the current examination. Continued follow-up is recommended. 2.Examination is otherwise not changed. [facility]-[id number] Estimated GFR (07/22/2016 5:37 AM) Component Value [...] and Americans. Specimen Performing Laboratory Plasma specimen [facility] DEPARTMENT OF PATHOLOGY AND GENOMIC MEDICINE [address] [place] [id number] CBC with platelet and differential (07/22/2016 5:37 [...] (promyelocytes, myelocytes, metamyelocytes) Specimen Performing Laboratory Blood [facility] DEPARTMENT OF PATHOLOGY AND [place] MEDICINE [address] [place] [address] Phosphorus level (07/22/2016 5:37 AM) Component Value Ref Range Phosphorus 2.5 2.4 - 4.5 mg/dL Specimen Performing Laboratory Plasma specimen [facility] DEPARTMENT PATHOLOGY [address] [address] Magnesium level (07/22/2016 5:37 AM) Component Value Ref Range Magnesium 2.1 1.6 - 2.4 mg/dL Specimen Performing Laboratory Plasma specimen [facility] DEPARTMENT OF PATHOLOGY [address] [address] Basic metabolic panel (07/22/2016 5:37 AM) Component [...] 10.2 mg/dL Specimen Performing Laboratory Plasma specimen [facility] DEPARTMENT PATHOLOGY [address] [address] Sodium level, syringe (07/21/2016 10:11 AM)Only the most recent of2 resultswithin the time period is included. Component Value Ref Range Sodium, syringe 139 135 - 148 mEq/L Specimen Performing Laboratory Blood [facility] DEPARTMENT PATHOLOGY [address] [address] Potassium, syringe (07/21/2016 10:11 AM)Only the most recent of2 resultswithin the time period is included. Component Value Ref Range Potassium, syringe 4.3 3.5 - 5.0 mEq/L Specimen Performing Laboratory Blood [facility] PATHOLOGY [address] [address] Ionized calcium, arterial (07/21/2016 10:11 AM)Only the most recent of2 resultswithin the time period is included. Component Value Ref Range Ionized calcium, arterial 1.24 1.11 - 1.32 mmol/L Specimen Performing Laboratory Blood [facility] PATHOLOGY [address] [address] Hemoglobin, syringe (07/21/2016 10:11 AM)Only the most recent of2 resultswithin the time period is included. Component Value Ref Range Hemoglobin, syringe 12.4 12.0 - 16.0 g/dL Specimen Performing Laboratory Blood [facility] DEPARTMENT OF PATHOLOGY AND [facility] MEDICINE [address] [place] [address] Glucose level, syringe (07/21/2016 10:11 AM)Only the most recent of2 resultswithin the time period is included. Component Value Ref Range Glucose, syringe 130 (H) 65 - 99 mg/dL Specimen Performing Laboratory Blood [facility] DEPARTMENT OF PATHOLOGY AND [address] [address] Arterial blood gas, corrected (07/21/2016 10:11 AM)Only [...] - 2 mEq/L Specimen Performing Laboratory Blood [facility] DEPARTMENT OF PATHOLOGY AND [facility] [address] [place] [address] Surgical pathology request (07/21/2016 9:44 AM) Component Value Ref Range Surgical pathology report See link below for PDF Lab Report Specimen Performing Laboratory [facility] DEPARTMENT OF PATHOLOGY AND [facility] MED[facility] [address] [place] [address] Prepare RBC (07/21/2016 7:05 AM) Component Value Ref Range Product name Red Blood Cells -1, Leukored Unit number [id number] Product code [id number] Dispense status Returned to not transfused Blood expiration date 20160819 Blood type code 5100 Blood type O POSITIVE Product name Red Blood Cells -1, Leukored Unit number [id number] Product code [id number] Dispense status Returned to not transfused Blood expiration date 20160818 Blood type code 5100 Blood type O POSITIVE Specimen Performing Laboratory [facility] DEPARTMENT OF PATHOLOGY AND [facility] [address] [place] [address] Type and screen (07/21/2016 7:05 AM) Component Value Ref Range ABO grouping O Rh type POS Antibody screen (gel) NEG Specimen Performing Laboratory Blood [facility] DEPARTMENT OF PATHOLOGY AND GENOMIC MEDICINE [address] [place] [address] after 07/15/2016 Insurance Payer Benefit Plan / Group Subscriber ID Type Phone Address ANA PEREZ [employer] xxxxxxxxx HMO Home: [address] [place], [place] [phone] [place] [phone]
[2017-07-16] MEDS ORDERED: NA CHLORIDE 0.9% 1,000 ML ONE (05:18)
[2017-07-16] MEDS ORDERED: FENTANYL CITR 100 MCG/2 ML ONE ×2 (05:45→07:58)
[2017-07-16] MEDS ORDERED: ONDANSETRON 4 MG/2 ML VIAL ONE (05:46)
[2017-07-16] MEDS ORDERED: FAMOTIDINE 20 MG/2 ML VIAL IV ONE (05:46)
[2017-07-16 06:03] LABS: Absolute Lymphocytes (CBC) 0.4 K/uL (0.7-4.9); Eosinophils % 3.7 % (0-4.4); Hematocrit 32.4 % (36.0-45.0); Lymphocytes % 86.7 % (15.3-44.8); MCV 90.5 fL (80-100); MPV 8.6 fL (7.6-11.3); Monocytes % 4.3 % (3.3-12.3); RBC Red Blood Cell Count 3.58 M/uL (3.86-4.86)
--- NOTE | 2017-07-16 06:10 | ER ---
Nurse's Notes [facility] Name: Debroah Nicole Age: 71 yrs Sex: Female : 1945 Arrival Date: 07/16/2017 Time: 04:32 Bed 7 Private MD: Jennifer Jennings Diagnosis: Abdominal tenderness;Diarrhea, unspecified;Other acute pancreatitis-history of;Neutropenia;Hypomagnesemia Presentation: 07/16 04:52 Presenting complaint: Patient states: abd pain, epigastric pain since 0900 07/15/17. pt ak1 denies nausea and vomiting. pt stated "i always have diarrhea.". Transition of care: patient was not received from another setting of care. Onset of symptoms was July 15, 2017. Care prior to arrival: None. 04:52 Method Of Arrival: Wheelchair ak1 04:52 Acuity: TAMI 3 ak1 Triage Assessment: 04:57 General: Appears in no apparent distress. Behavior is calm, cooperative. Pain: ak1 Complains of pain in epigastric area, right upper quadrant and left upper quadrant. EENT: No signs and/or symptoms were reported regarding the EENT system. Neuro: No deficits noted. Cardiovascular: No deficits noted. Respiratory: No deficits noted. GI: Abdomen is round Bowel sounds present X 4 quads. Reports upper abdominal pain, Patient currently denies nausea, vomiting. : No signs and/or symptoms were reported regarding the genitourinary system. Derm: No signs and/or symptoms reported regarding the dermatologic system. Musculoskeletal: No signs and/or symptoms reported regarding the musculoskeletal system. Historical: - Allergies: 04:57 Aspirin; ak1 04:57 Cipro PO; ak1 04:57 Vicodin; ak1 04:57 Pineapple; ak1 04:57 PENICILLINS; ak1 04:57 Morphine; ak1 04:57 Milk/dairy products; ak1 04:57 Lortab; ak1 04:57 Levaquin; ak1 04:57 EGG/POULTRY; ak1 04:57 Demerol; ak1 - Home Meds: 04:57 bisoprolol fumarate 5 mg Oral tab [Active]; capecitabine 150 mg oral tab 2 tab twice a ak1 day [Active]; Vitamin D Oral 1000 unit daily [Active]; gabapentin 500 mg Oral 3 times per day [Active]; Creon Oral [Active]; dicyclomine 20 mg Oral tab daily [Active]; omeprazole 40 mg Oral cpDR 1 cap once daily [Active]; pravastatin 40 mg Oral tab 1 tab once daily [Active]; - PMHx: 04:57 BREAST CA; Hypertension; Irritable bowel syndrome; Pancreatitis; Right lung mass; skin ak1 ca; - PSHx: 04:57 breast cancer; Tubal ligation; skin cancer; Cholecystectomy; ak1 - Immunization history:: Adult Immunizations up to date. - Social history:: Smoking status: unknown. - Family history:: not pertinent. Screenin:58 Abuse screen: Denies threats or abuse. Denies injuries from another. Nutritional ak1 screening: No deficits noted. Tuberculosis screening: No symptoms or risk factors identified. Fall Risk None identified. Assessment: 05:13 Reassessment: Patient appears in no apparent distress at this time. No changes from ak1 previously documented assessment. Patient is alert, oriented x 3, equal unlabored respirations, skin warm/dry/pink. see triage assessment. pt ambulated with steady gait to restroom, pt was unable to urinate at this time. 05:14 GI: Abd is soft and non tender X 4 quads. ak1 06:01 Reassessment: Patient appears in no apparent distress at this time. pt drinking PO ak1 contrast for CT. pt verbalized understanding to call RN once finished drinking. lab at bedside for blood culture draw. 06:13 Reassessment: pt finished oral contrast, CT contacted and notified. . ak1 06:37 Reassessment: 2 lab techs unable to obtain blood cultures. ERP notified. . ak1 07:18 Reassessment: Patient appears in no apparent distress at this time. Patient and/or ph family updated on plan of care and expected duration. Pain level reassessed. Patient is alert, oriented x 3, equal unlabored respirations, skin warm/dry/pink. Pt taken to CT. 08:18 Reassessment: Patient appears in no apparent distress at this time. Patient and/or ph family updated on plan of care and expected duration. Pain level reassessed. Patient is alert, oriented x 3, equal unlabored respirations, skin warm/dry/pink. Attempted to call report, receiving nurse states that she was in a pt's room administering medication and will call back. 09:18 Reassessment: Patient appears in no apparent distress at this time. No changes from ph previously documented assessment. Again attempted to call report, was told by nursing secretary that receiving nurse was passing medication. 09:48 Reassessment: Patient appears in no apparent distress at this time. Patient and/or ph family updated on plan of care and expected duration. Pain level reassessed. Patient is alert, oriented x 3, equal unlabored respirations, skin warm/dry/pink. Report called to DAVID Corona, pt ambulated to restroom, gait steady, will be taken to inpatient room after using restroom. Vital Signs: 04:51 BP 128 / 72; Pulse 100; Resp 18; Temp 99.1(O); Pulse Ox 97% on R/A; Weight 60.33 kg ak1 (R); Height 4 ft. 11 in. (149.86 cm) (R); Pain 10/10; 06:38 BP 128 / 59; Pulse 88; Resp 20; Temp 99.4(O); Pulse Ox 97% on R/A; Pain 4/10; ak1 08:00 BP 126 / 54; Pulse 87; Resp 16; Pulse Ox 98% on R/A; ph 09:19 BP 120 / 56; Pulse 84; Resp 18; Temp 99.0; Pulse Ox 98% on R/A; ph 04:51 Body Mass Index 26.86 (60.33 kg, 149.86 cm) ak1 ED Course: 04:32 Patient arrived in ED. es 04:33 Jennifer Jennings MD is Private Physician. es 04:48 Rene Forrester MD is Attending Physician. desiree 04:51 Yvonne Duran, DAVID is Primary Nurse. ak1 04:53 Triage completed. ak1 04:58 Arm band placed on Patient placed in an exam room, on a stretcher, on pulse oximetry, ak1 Patient notified of wait time. 04:59 Patient has correct armband on for positive identification. Placed in gown. Bed in low ak1 position. Call light in reach. Side rails up X 1. hospital monitor on. Pulse ox on. NIBP on. 05:11 X-ray completed. Portable x-ray completed in exam room. Patient tolerated procedure kw well. 05:12 XRAY Chest (1 view) In Process Unspecified. EDMS 05:24 Inserted saline lock: 20 gauge in left antecubital area, using aseptic technique. ak1 ,using aseptic technique. placed by Cristian Reynolds [facility] Blood collected. 06:09 Franco Castillo MD is Hospitalizing Provider. [facility] [place] 06:12 Notified ED physician of a critical lab result(s). wbc of 0.5. fc 06:25 No provider procedures requiring assistance completed. Patient admitted, IV remains in ak1 place. 07:21 CT completed. Patient tolerated procedure well. Patient moved to CT via stretcher. vr Patient moved back from CT. Administered Medications: 05:33 Drug: NS 0.9% 500 ml Route: IV; Rate: bolus; Site: left antecubital; ak1 06:49 Follow up: IV Status: Completed infusion ak1 05:33 Drug: Pepcid 20 mg Route: IVP; Site: left antecubital; ak1 06:27 Follow up: Response: No adverse reaction ak1 05:33 Drug: fentaNYL (PF) 25 mcg Route: IVP; Site: left antecubital; ak1 06:27 Follow up: Response: No adverse reaction ak1 05:33 Drug: Zofran 4 mg Route: IVP; Site: left antecubital; ak1 06:27 Follow up: Response: No adverse reaction ak1 06:50 Drug: NS 0.9% 1000 ml Route: IV; Rate: 125 ml/hr; Site: left antecubital; ak1 08:08 Follow up: Response: No adverse reaction; IV Status: Infusion continued upon admission ph 07:48 Drug: vancoMYCIN 1 grams Route: IVPB; Infused Over: 2 hrs; Site: left antecubital; ph 08:08 Follow up: Response: No adverse reaction; IV Status: Infusion continued upon admission ph 07:48 Drug: Magnesium Sulfate 1 grams Route: IVPB; Infused Over: 1 hrs; Site: left ph antecubital; 08:08 Follow up: IV Status: Completed infusion; Infusion continued upon admission ph 07:49 Drug: fentaNYL (PF) 25 mcg Route: IVP; Site: left antecubital; ph 08:09 Follow up: Response: No adverse reaction; Pain is decreased ph 08:08 Drug: Cefepime 1 grams Route: IVPB; Rate: 200 ml/hr; Infused Over: 30 mins; Site: left ph antecubital; 08:09 Follow up: Response: No adverse reaction; IV Status: Infusion continued upon admission ph Outcome: 06:10 Decision to Hospitalize by Provider. desiree 06:26 Instructed on the need for admit. ak1 09:49 Admitted to Med/surg accompanied by tech, family with patient, via wheelchair, room ph 214, with chart, Report called to Chloe 09:49 Condition: stable 09:54 Patient left the ED. ph Signatures: Dispatcher [employer] Rene Sheldon MD MD cha Salyer, Edna es Chretien, Felicia, RN RN Marilyn Curran Kimberlee kw Krenek, Amber RN RN ak1 Celia Poole RN RN ph
--- NOTE | 2017-07-16 06:10 | EDPHYS ---
Physician Documentation [facility] Name: Deborah Nicole Age: 71 yrs Sex: Female : 1945 Arrival Date: 07/16/2017 Time: 04:32 Bed 7 Private MD: Jennifer Jennings ED Physician Rene Forrester HPI: 07/16 04:53 This 71 yrs old Female presents to ER via Unassigned with complaints of desiree Abdominal Pain. 04:53 The patient presents with abdominal pain in the upper abdomen, in the lower abdomen. desiree Onset: The symptoms/episode began/occurred 1 year(s) ago. The patient or guardian reports cough, that is intermittent. Onset: The symptoms/episode began/occurred 21 day(s) ago. Severity of symptoms: At their worst the symptoms were mild, in the emergency department the symptoms are unchanged. Modifying factors: The symptoms are alleviated by nothing, the symptoms are aggravated by nothing. The symptoms do not radiate. Severity of pain: At its worst the pain was mild in the emergency department the pain is unchanged. Historical: - Allergies: 04:57 Aspirin; ak1 04:57 Cipro PO; ak1 04:57 Vicodin; ak1 04:57 Pineapple; ak1 04:57 PENICILLINS; ak1 04:57 Morphine; ak1 04:57 Milk/dairy products; ak1 04:57 Lortab; ak1 04:57 Levaquin; ak1 04:57 EGG/POULTRY; ak1 04:57 Demerol; ak1 - Home Meds: 04:57 bisoprolol fumarate 5 mg Oral tab [Active]; capecitabine 150 mg oral tab 2 tab twice a ak1 day [Active]; Vitamin D Oral 1000 unit daily [Active]; gabapentin 500 mg Oral 3 times per day [Active]; Creon Oral [Active]; dicyclomine 20 mg Oral tab daily [Active]; omeprazole 40 mg Oral cpDR 1 cap once daily [Active]; pravastatin 40 mg Oral tab 1 tab once daily [Active]; - PMHx: 04:57 BREAST CA; Hypertension; Irritable bowel syndrome; Pancreatitis; Right lung mass; skin ak1 ca; - PSHx: 04:57 breast cancer; Tubal ligation; skin cancer; Cholecystectomy; ak1 - Immunization history:: Adult Immunizations up to date. - Social history:: Smoking status: unknown. - Family history:: not pertinent. ROS: 05:19 Constitutional: Negative for fever, chills, and weight loss, Eyes: Negative for injury, desiree pain, redness, and discharge, ENT: Negative for injury, pain, and discharge, Neck: Negative for injury, pain, and swelling, Cardiovascular: Negative for chest pain, palpitations, and edema, Respiratory: Negative for shortness of breath, cough, wheezing, and pleuritic chest pain, Back: Negative for injury and pain, : Negative for injury, bleeding, discharge, and swelling, MS/Extremity: Negative for injury and deformity, Skin: Negative for injury, rash, and discoloration, Neuro: Negative for headache, weakness, numbness, tingling, and seizure, Psych: Negative for depression, anxiety, suicide ideation, homicidal ideation, and hallucinations, Allergy/Immunology: Negative for hives, rash, and allergies, Endocrine: Negative for neck swelling, polydipsia, polyuria, polyphagia, and marked weight changes, Hematologic/Lymphatic: Negative for swollen nodes, abnormal bleeding, and unusual bruising. 05:19 Abdomen/GI: Positive for diarrhea. Exam: 05:19 Constitutional: This is a well developed, well nourished patient who is awake, alert, desiree and in no acute distress. Head/Face: Normocephalic, atraumatic. Eyes: Pupils equal round and reactive to light, extra-ocular motions intact. Lids and lashes normal. Conjunctiva and sclera are non-icteric and not injected. Cornea within normal limits. Periorbital areas with no swelling, redness, or edema. ENT: Nares patent. No nasal discharge, no septal abnormalities noted. Tympanic membranes are normal and external auditory canals are clear. Oropharynx with no redness, swelling, or masses, exudates, or evidence of obstruction, uvula midline. Mucous membranes moist. Neck: Trachea midline, no thyromegaly or masses palpated, and no cervical lymphadenopathy. Supple, full range of motion without nuchal rigidity, or vertebral point tenderness. No Meningismus. Chest/axilla: Normal chest wall appearance and motion. Nontender with no deformity. No lesions are appreciated. Cardiovascular: Regular rate and rhythm with a normal S1 and S2. No gallops, murmurs, or rubs. Normal PMI, no JVD. No pulse deficits. Respiratory: Lungs have equal breath sounds bilaterally, clear to auscultation and percussion. No rales, rhonchi or wheezes noted. No increased work of breathing, no retractions or nasal flaring. Back: No spinal tenderness. No costovertebral tenderness. Full range of motion. Female : Normal external genitalia. Skin: Warm, dry with normal turgor. Normal color with no rashes, no lesions, and no evidence of cellulitis. MS/ Extremity: Pulses equal, no cyanosis. Neurovascular intact. Full, normal range of motion. Neuro: Awake and alert, GCS 15, oriented to person, place, time, and situation. Cranial nerves II-XII grossly intact. Motor strength 5/5 in all extremities. Sensory grossly intact. Cerebellar exam normal. Normal gait. Psych: Awake, alert, with orientation to person, place and time. Behavior, mood, and affect are within normal limits. 05:19 Abdomen/GI: Inspection: abdomen appears normal, Bowel sounds: normal, Palpation: mild abdominal tenderness, in the epigastric area, right upper quadrant and left upper quadrant, Liver: no appreciated palpable abnormalities, Hernia: not appreciated. Vital Signs: 04:51 BP 128 / 72; Pulse 100; Resp 18; Temp 99.1(O); Pulse Ox 97% on R/A; Weight 60.33 kg ak1 (R); Height 4 ft. 11 in. (149.86 cm) (R); Pain 10/10; 06:38 BP 128 / 59; Pulse 88; Resp 20; Temp 99.4(O); Pulse Ox 97% on R/A; Pain 4/10; ak1 08:00 BP 126 / 54; Pulse 87; Resp 16; Pulse Ox 98% on R/A; ph 09:19 BP 120 / 56; Pulse 84; Resp 18; Temp 99.0; Pulse Ox 98% on R/A; ph 04:51 Body Mass Index 26.86 (60.33 kg, 149.86 cm) ak1 MDM: 04:48 Patient medically screened. [facility] 04:53 Data reviewed: vital signs, nurses notes, lab test result(s), radiologic studies, plain desiree films. 07/16 04:49 Order name: Basic Metabolic Panel; Complete Time: 06:56 [facility] 07/16 04:49 Order name: BNP; Complete Time: 06:56 desiree 07/16 04:49 Order name: CBC with Diff; Complete Time: 08:26 desiree 07/16 04:49 Order name: Ckmb; Complete Time: 06:56 desiree 07/16 04:49 Order name: CPK; Complete Time: 06:56 07/16 04:49 Order name: LFT's; Complete Time: 06:56 desiree 07/16 04:49 Order name: Magnesium; Complete Time: 06:56 desiree 07/16 04:49 Order name: PT-INR; Complete Time: 06:56 desiree 07/16 04:49 Order name: Ptt, Activated; Complete Time: 06:56 desiree 07/16 04:49 Order name: Troponin (emerg Dept Use Only); Complete Time: 06:56 desiree 07/16 04:49 Order name: Lipase; Complete Time: 06:56 desiree 07/16 04:49 Order name: Urine Culture; Complete Time: 07:03 desiree 07/16 05:21 Order name: Type And Screen; Complete Time: 08:26 [facility] 07/16 05:21 Order name: Blood Culture Adult (2) 07/16 04:49 Order name: XRAY Chest (1 view); Complete Time: 08:26 [facility] 07/16 04:49 Order name: EKG; Complete Time: 04:49 [facility] 07/16 05:19 Order name: CT Abd/Pelvis - W/Contrast 07/16 06:13 Order name: CBC Smear Scan; Complete Time: 08:26 EDMA 07/16 07:01 Order name: Urine Culture [facility] 07/16 07:48 Order name: CT; Complete Time: 08:26 EDMA 07/16 09:38 Order name: ABO/RH no charge EDMA 07/16 04:49 Order name: Cardiac monitoring; Complete Time: 05:13 desiree 07/16 04:49 Order name: EKG - Nurse/Tech; Complete Time: 04:59 desiree 07/16 04:49 Order name: IV Saline Lock; Complete Time: 05:24 desiree 07/16 04:49 Order name: Labs collected and sent; Complete Time: 05:24 desiree 07/16 04:49 Order name: O2 Per Protocol; Complete Time: 04:59 desiree 07/16 04:49 Order name: O2 Sat Monitoring; Complete Time: 04:59 desiree 07/16 06:14 Order name: CONS Physician Consult EDMS 07/16 06:14 Order name: CONS Physician Consult EDMS Administered Medications: 05:33 Drug: NS 0.9% 500 ml Route: IV; Rate: bolus; Site: left antecubital; ak1 06:49 Follow up: IV Status: Completed infusion ak1 05:33 Drug: Pepcid 20 mg Route: IVP; Site: left antecubital; ak1 06:27 Follow up: Response: No adverse reaction ak1 05:33 Drug: fentaNYL (PF) 25 mcg Route: IVP; Site: left antecubital; ak1 06:27 Follow up: Response: No adverse reaction ak1 05:33 Drug: Zofran 4 mg Route: IVP; Site: left antecubital; ak1 06:27 Follow up: Response: No adverse reaction ak1 06:50 Drug: NS 0.9% 1000 ml Route: IV; Rate: 125 ml/hr; Site: left antecubital; ak1 08:08 Follow up: Response: No adverse reaction; IV Status: Infusion continued upon admission ph 07:48 Drug: vancoMYCIN 1 grams Route: IVPB; Infused Over: 2 hrs; Site: left antecubital; ph 08:08 Follow up: Response: No adverse reaction; IV Status: Infusion continued upon admission ph 07:48 Drug: Magnesium Sulfate 1 grams Route: IVPB; Infused Over: 1 hrs; Site: left ph antecubital; 08:08 Follow up: IV Status: Completed infusion; Infusion continued upon admission ph 07:49 Drug: fentaNYL (PF) 25 mcg Route: IVP; Site: left antecubital; ph 08:09 Follow up: Response: No adverse reaction; Pain is decreased ph 08:08 Drug: Cefepime 1 grams Route: IVPB; Rate: 200 ml/hr; Infused Over: 30 mins; Site: left ph antecubital; 08:09 Follow up: Response: No adverse reaction; IV Status: Infusion continued upon admission ph Disposition: 07/16/17 06:10 Hospitalization ordered by Franco Castillo for Inpatient Admission. Preliminary diagnosis are Abdominal tenderness, Diarrhea, unspecified, Other acute pancreatitis - history of, Neutropenia, Hypomagnesemia. - Bed requested for Telemetry/MedSurg (Inpatient). - Status is Inpatient Admission. ph - Condition is Fair. - Problem is new. - Symptoms have improved. UTI on Admission? No Signatures: Dispatcher [employer] EDMS Grace Arias RN RN mw Anderson, Corey, MD MD cha Rittger, Kevin, MD MD kdr Krenek, Amber RN RN ak1 Celia Poole RN RN ph Corrections: (The following items were deleted from the chart) 04:56 04:53 Constitutional: Negative for fever, chills, and weight loss, Eyes: Negative for desiree injury, pain, redness, and discharge, ENT: Negative for injury, pain, and discharge, Neck: Negative for injury, pain, and swelling, Cardiovascular: Negative for chest pain, palpitations, and edema, Back: Negative for injury and pain, : Negative for injury, bleeding, discharge, and swelling, MS/Extremity: Negative for injury and deformity, Skin: Negative for injury, rash, and discoloration, Neuro: Negative for headache, weakness, numbness, tingling, and seizure, Psych: Negative for depression, anxiety, suicide ideation, homicidal ideation, and hallucinations, Allergy/Immunology: Negative for hives, rash, and allergies, Endocrine: Negative for neck swelling, polydipsia, polyuria, polyphagia, and marked weight changes, Hematologic/Lymphatic: Negative for swollen nodes, abnormal bleeding, and unusual bruising, [facility] 04:56 04:53 Respiratory: Positive for cough, [facility] 04:56 04:53 Abdomen/GI: Positive for abdominal pain, nausea and vomiting, of the right upper desiree quadrant, left upper quadrant, right lower quadrant and left lower quadrant, [facility] 04:56 04:53 Constitutional: This is a well developed, well nourished patient who is awake, desiree alert, and in no acute distress. Head/Face: Normocephalic, atraumatic. Eyes: Pupils equal round and reactive to light, extra-ocular motions intact. Lids and lashes normal. Conjunctiva and sclera are non-icteric and not injected. Cornea within normal limits. Periorbital areas with no swelling, redness, or edema. ENT: Nares patent. No nasal discharge, no septal abnormalities noted. Tympanic membranes are normal and external auditory canals are clear. Oropharynx with no redness, swelling, or masses, exudates, or evidence of obstruction, uvula midline. Mucous membranes moist. Neck: Trachea midline, no thyromegaly or masses palpated, and no cervical lymphadenopathy. Supple, full range of motion without nuchal rigidity, or vertebral point tenderness. No Meningismus. Chest/axilla: Normal chest wall appearance and motion. Nontender with no deformity. No lesions are appreciated. Respiratory: Lungs have equal breath sounds bilaterally, clear to auscultation and percussion. No rales, rhonchi or wheezes noted. No increased work of breathing, no retractions or nasal flaring. Abdomen/GI: Soft, non-tender, with normal bowel sounds. No distension or tympany. No guarding or rebound. No evidence of tenderness throughout. Back: No spinal tenderness. No costovertebral tenderness. Full range of motion. Skin: Warm, dry with normal turgor. Normal color with no rashes, no lesions, and no evidence of cellulitis. MS/ Extremity: Pulses equal, no cyanosis. Neurovascular intact. Full, normal range of motion. Neuro: Awake and alert, GCS 15, oriented to person, place, time, and situation. Cranial nerves II-XII grossly intact. Motor strength 5/5 in all extremities. Sensory grossly intact. Cerebellar exam normal. Normal gait. Psych: Awake, alert, with orientation to person, place and time. Behavior, mood, and affect are within normal limits. desiree 04:56 04:53 Cardiovascular: Rate: normal, Rhythm: regular, Pulses: Pulses are 4+ in bilateral desiree radial, brachial, femoral, popliteal, posterior tibial and and dorsalis pedis arteries.. Heart sounds: normal, Edema: is not appreciated, JVD: is not appreciated, desiree
[2017-07-16 06:14] LABS: Bicarbonate 26 mEq/L (21-31); Glucose Level 119 mg/dL (65-120); Lipase 25 U/L (22-51); Potassium 3.9 mEq/L (3.6-5.0); Sodium Level 136 mEq/L (135-145)
[2017-07-16 06:17] LABS: Protime INR 1.28
[2017-07-16 06:21] LABS: ALT/SGPT 9 IU/L (10-60); AST/SGOT 22 IU/L (10-42); Albumin 3.6 g/dL (3.2-5.5); Alkaline Phosphatase 52 IU/L (42-121); BUN Blood Urea Nitrogen 17 mg/dL (6-20); Bilirubin Direct 0.3 mg/dL (0-0.2); Bilirubin Total 2.2 mg/dL (0.3-1.2); Creatine Phosphokinase 25 IU/L (22-269); Glomerular Filtration Rate > 90 mL/min (=/>90); Magnesium 1.7 mg/dL (1.8-2.5); Protein, Total 5.3 g/dL (6.0-8.3)
[2017-07-16 06:22] LABS: CKMB Creatine Kinase MB 0.5 ng/ml (0.3-4.0)
[2017-07-16] MEDS ORDERED: ACETAMINOPHEN 500 MG TAB PO PRN (06:38)
[2017-07-16] MEDS ORDERED: MORPHINE 4 MG/ML SYR IV PRN (06:38)
[2017-07-16 07:41] LABS: Anisocytosis 1+; Blood Morphology Comment NOTED (NOT SEEN); Elliptocytes 1+; Platelet Estimate ADEQ; Urine White Blood Cell Casts OK
[2017-07-16] MEDS ORDERED: VANCOMYCIN/NS 1 gm 1 GM/250 ML BAG ONE (07:44)
[2017-07-16] MEDS ORDERED: MAGNESIUM SULFATE 1 gm IVPB 1 GM/100 ML BAG IV ONE (07:44)
[2017-07-16] MEDS ORDERED: CEFEPIME/SWI 1gm 1 GM/10 ML SYR IV SCH (07:45)
--- NOTE | 2017-07-16 07:47 | RAD REPORT ---
EXAM DESCRIPTION: CT - Abdomen Pelvis W Contrast - 07/16/2017 7:22 am CLINICAL HISTORY: Abdominal pain, epigastric pain, history of breast cancer, skin cancer, pancreatit is and right lung mass COMPARISON: CT study July 2016, CT chest May 2017 TECHNIQUE: Biphasic, helical CT imaging of the abdomen and pelvis was performed following 100 ml non -ionic IV contrast. Oral contrast was given. All CT scans are performed using dose optimization technique as appropriate and may include automated exposure control or mA/KV adjustment according to patient size. FINDINGS: A 15 millimeter mass is present in the posterior gutter on the right, decreased from the 1 9 mm size seen in May. No pneumothorax or pleural effusion. No pericardial effusion. The liver, spleen, and pancreas show no suspicious findings. No pancreatitis findings. Gallbladder is absent. Biliary tree is within normal limits. Liver attenuation indicates a mild diffuse fatty infil tration. Symmetric renal function is seen with no hydronephrosis or suspicious renal mass. No pyelonephritis o r acute renal parenchymal process. No urinary bladder abnormality seen. Uterus and ovaries show no woodruff spicious findings. No gastric dilatation or gastric wall thickening. Duodenum and jejunum are unremarkable. There is a 2 0 centimeter long segment of ileum, exclusive of the terminal ileum, showing circumferential wall thi ckening and edema. There is stranding in the adjacent mesenteric fat. Terminal ileum and colon show n o significant findings. There is some questionable short-segment wall thickening in the sigmoid colon . This is probably not a true abnormality the would likely be treated in the course of the small robbie l treatment. No free air, free fluid or other inflammatory stranding. No hernia, mass or bulky lymphadenopathy. No adrenal abnormality. Bony degenerative changes are present. Advanced facet joint degenerative change present at L5-S1. The re is some minimal mottled appearance to the vertebrae. No convincing evidence for metastatic disease on CT criteria. IMPRESSION: Nonspecific acute ileitis pattern involving a 20 centimeter long segment. Terminal ileum is not involved. No other acute bowel process confirmed. No free air, abscess or surgically emergent finding. No focal liver lesion, lymphadenopathy or other finding of abdominal or pelvic malignancy. Gallbladder is absent. Biliary tree is normal and there are no pancreatitis findings. Irregular pulmonary nodule posterior gutter on the right has decreased in size since May.
--- NOTE | 2017-07-16 08:09 | RAD REPORT ---
EXAM DESCRIPTION: RAD - Chest Single View - 07/16/2017 5:14 am CLINICAL HISTORY: Abdominal pain, epigastric pain, abdominal distention COMPARISON: July 2016 TECHNIQUE: AP portable chest image was obtained 0508 hours . FINDINGS: Lung volumes are low. Lung base atelectasis changes are present. No focal infiltrate, mass or failure finding. Heart and vasculature are normal. No measurable pleural effusion and no pneumoth orax. No gross bony abnormality seen. No acute aortic findings suspected. IMPRESSION: No acute cardiopulmonary process. No suspicious change from prior imaging.
--- NOTE | 2017-07-16 08:49 | P.HP ---
Certification for Inpatient Patient admitted to: Inpatient With expected LOS: >2 Midnights Patient will require the following post-hospital care: None Practitioner: I am a practitioner with admitting privileges, knowledge of patient current condition, hospital course, and medical plan of care. Services: Services provided to patient in accordance with Admission requirements found in Title 42 Section 412.3 of the Code of Federal Regulations Patient History Date of Service: 07/16/17 Reason for admission: Abdominal pain/diarrhea/neutropenic History of Present Illness: Patient is 71-year-old female came into the hospital with abdominal pain. Patient is getting treatment for breast cancer. She is recently getting chemotherapy on Wednesday. A few days after this she started having abdominal pain with persistent diarrhea. Her pain has been worsening and she came into the hospital for further evaluation. In the emergency room patient was found to be neutropenic. CT scan of the abdomen is pending at this time. Continue with IV hydration and IV antibiotics pending cultures. Stool studies pending. Allergies acetaminophen [From Vicodin] Allergy (Verified 05/29/15 13:17) Unknown ciprofloxacin [From Cipro] Allergy (Verified 05/29/15 13:17) Unknown ciprofloxacin HCl [From Cipro] Allergy (Verified 05/29/15 13:17) Unknown hydrocodone [From Lortab] Allergy (Unverified 10/03/15 02:07) Unknown hydrocodone bitartrate [From Vicodin] Allergy (Verified 05/29/15 13:17) Unknown levofloxacin [From Levaquin] Allergy (Verified 05/29/15 13:17) Unknown meperidine HCl [From Demerol] Allergy (Verified 05/29/15 13:17) Unknown morphine Allergy (Verified 05/29/15 13:17) Unknown Penicillins Allergy (Verified 05/29/15 13:17) Unknown aspirin Allergy (Uncoded 05/29/15 13:17) Unknown Cipro P Allergy (Uncoded 07/31/16 13:13) Unknown Cipro PO Allergy (Uncoded 10/03/15 02:07) Unknown Home Medications: Bisoprolol Fumarate [Zebeta*] 5 mg PO 1X 03/18/15 Linaclotide [Linzess] 145 mcg PO 1X 03/18/15 Lipase/Protease/Amylase [Creon Dr 12,000 Units Capsule] 2 each PO 1X 03/18/15 Pravastatin Sodium 40 mg PO 1X 03/18/15 - Past Medical/Surgical History -: Breast cancer -: Hypertension -: 2nd he - Family History Father Family History: Reviewed- Non-Contributory - Social History Smoking Status: Never smoker Alcohol use: No CD- Drugs: No Review of Systems 10-point ROS is otherwise unremarkable Physical Examination - Vital Signs Temperature: 98 F Blood Pressure: 130/80 Pulse: 78 Respirations: 18 Pulse Ox (%): 95 - Physical Exam General: Alert, In no apparent distress, Oriented x3 HEENT: Atraumatic, Normocephalic Neck: Supple, 2+ carotid pulse no bruit, JVD not distended, No Thyromegaly Respiratory: Clear to auscultation bilaterally, Normal air movement Cardiovascular: Regular rate/rhythm, Normal S1 S2, No murmurs Gastrointestinal: Normal bowel sounds, Hypoactive, Soft and benign, Non- distended, No rebound, No guarding Musculoskeletal: No clubbing, No swelling, No contractures, No erythema Integumentary: No significant lesion, No tenderness/swelling, No erythema, No warmth, No cyanosis Neurological: Normal gait, Normal speech, Normal strength at 5/5 x4 extr, Normal tone, Sensation intact, Cranial nerves 3-12 intact, Normal reflexes 2+ - Studies Laboratory Data (last 24 hrs) 07/16/17 05:23: PT 15.1 H, INR 1.28, APTT 24.0 L 07/16/17 05:23: WBC 0.5 L* D, Hgb 11.5 L, Hct 32.4 L, Plt Count 152 D 07/16/17 05:23: B-Natriuretic Peptide 20 07/16/17 05:23: Sodium 136, Potassium 3.9, BUN 17, Creatinine 0.64, Glucose 119 , Magnesium 1.7 L, Total Bilirubin 2.2 H, AST 22, ALT 9 L, Alkaline Phosphatase 52, Lipase 25 Assessment & Plan - Problems (Diagnosis) (1) Abdominal pain Current Visit: Yes Status: Acute (2) Diarrhea Current Visit: Yes Status: Acute (3) Colitis Current Visit: Yes Status: Acute (4) Neutropenia Current Visit: Yes Status: Acute (5) Breast cancer Current Visit: Yes Status: Acute - Plan 1. Continue with IV hydration 2. Continue with IV antibiotics 3. Continue with pain control 4. NPO 5. GI & Oncology consultation; neutropenic precautions 6. Serial H&H, and we will monitor CBC, BMP, LFTs and lipase along with electrolytes. 7. GI and DVT prophylaxis - Advance Directives Does patient have a Living Will: No Does patient have a Durable POA for Healthcare: No - Code Status/Comfort Care Code Status Assessed: Yes Code Status: Full Code Critical Care: No Time Spent Managing PTS Care (In Minutes): 50
[2017-07-16] MEDS ORDERED: CEFEPIME 1 GM/VIAL IV SCH (09:00)
[2017-07-16] MEDS ORDERED: CEFEPIME 2 GM in NA CHLORIDE 0.9% 100 ML IV SCH (10:00)
[2017-07-16] MEDS: NA CHLORIDE 0.9% 1,000 ML IV SCH ×2 (11:22→18:15)
[2017-07-16] MEDS: METRONIDAZOLE 500mg IVPB 500 MG/100 ML BAG IV SCH ×2 (11:22→16:02)
[2017-07-16] MEDS: FENTANYL CITR 100 MCG/2 ML IV PRN ×2 (12:51→18:14)
[2017-07-16] MEDS: ONDANSETRON 4 MG/2 ML VIAL IV PRN ×2 (12:52→18:14)
[2017-07-16] MEDS ORDERED: PROTEASE PO SCH (14:00)
[2017-07-16] MEDS ORDERED: AMYLASE PO SCH (14:00)
[2017-07-16] MEDS ORDERED: LIPASE PO SCH (14:00)
[2017-07-16] MEDS: IBUPROFEN 200 MG TAB PO PRN (16:00)
[2017-07-16] MEDS: CEFEPIME/SWI 2gm 2 GM/20 ML SYR IV SCH (18:10)
--- NOTE | 2017-07-16 18:24 | P.PN ---
Subjective Date of Service: 07/16/17 Chief Complaint: Abdominal pain/diarrhea/neutropenic The patient feel better today and verbalize no new complaints Physical Examination - Vital Signs Temperature: 98.1 F Blood Pressure: 129/61 Pulse: 96 Respirations: 16 Pulse Ox (%): 97 - Physical Exam General: Alert, In no apparent distress HEENT: Atraumatic, PERRLA, EOMI Neck: Supple, JVD not distended Respiratory: Clear to auscultation bilaterally, Normal air movement Cardiovascular: Regular rate/rhythm, Normal S1 S2 Gastrointestinal: Normal bowel sounds, No tenderness Musculoskeletal: No tenderness Integumentary: No rashes Neurological: Normal speech, Normal tone, Normal affect Lymphatics: No axilla or inguinal lymphadenopathy - Studies Laboratory Data (last 24 hrs) 07/16/17 05:23: PT 15.1 H, INR 1.28, APTT 24.0 L 07/16/17 05:23: WBC 0.5 L* D, Hgb 11.5 L, Hct 32.4 L, Plt Count 152 D 07/16/17 05:23: B-Natriuretic Peptide 20 07/16/17 05:23: Sodium 136, Potassium 3.9, BUN 17, Creatinine 0.64, Glucose 119 , Magnesium 1.7 L, Total Bilirubin 2.2 H, AST 22, ALT 9 L, Alkaline Phosphatase 52, Lipase 25 Medications List Reviewed: Yes Assessment And Plan - Current Problems (Diagnosis) (1) Neutropenic fever Current Visit: Yes Status: Acute (2) Breast cancer Current Visit: Yes Status: Acute Qualifiers: Breast location: lower inner quadrant of breast Estrogen receptor status: positive Patient sex: female Laterality: right Qualified Code(s): C50.311 - Malignant neoplasm of lower-inner quadrant of right female breast; Z17.0 - Estrogen receptor positive status [ER+]; Z17.0 - Estrogen receptor positive status [ER+] (3) Colitis Current Visit: Yes Status: Acute (4) Diarrhea Current Visit: Yes Status: Acute Qualifiers: Diarrhea type: presumed infectious Qualified Code(s): R19.7 - Diarrhea, unspecified (5) Neutropenia Current Visit: Yes Status: Acute - Plan --continual Maxipime 2 g every 8 hr for neutropenic fever --continue Flagyl intravenously --C diff testing --Ontodia every day
[2017-07-16 22:22] LABS: Hematocrit 24.7 % (36.0-45.0); MCH 31.5 pg (27.0-35.0); MCV 90.4 fL (80-100); MPV 8.4 fL (7.6-11.3); RBC Red Blood Cell Count 2.74 M/uL (3.86-4.86)
[2017-07-16 22:43] LABS: ALT/SGPT 7 IU/L (10-60); AST/SGOT 15 IU/L (10-42); Albumin 2.8 g/dL (3.2-5.5); Alkaline Phosphatase 36 IU/L (42-121); BUN Blood Urea Nitrogen 14 mg/dL (6-20); Bicarbonate 26 mEq/L (21-31); Bilirubin Total 1.4 mg/dL (0.3-1.2); Glomerular Filtration Rate > 90 mL/min (=/>90); Glucose Level 104 mg/dL (65-120); Potassium 3.3 mEq/L (3.6-5.0); Protein, Total 4.4 g/dL (6.0-8.3); Sodium Level 132 mEq/L (135-145)
[2017-07-16 23:19] LABS: Blood Morphology Comment NOTED (NOT SEEN); Platelet Estimate ADEQ
[2017-07-16] MEDS: KCL 20 MEQ/100 mL IVPB 20 MEQ/100 ML BAG IV SCH (23:55)
[2017-07-17] MEDS: METRONIDAZOLE 500mg IVPB 500 MG/100 ML BAG IV SCH ×3 (00:03→16:19)
[2017-07-17] MEDS: CEFEPIME/SWI 2gm 2 GM/20 ML SYR IV SCH ×3 (00:03→16:19)
[2017-07-17] MEDS: KCL 20 MEQ/100 mL IVPB 20 MEQ/100 ML BAG IV SCH (03:20)
[2017-07-17] MEDS: NA CHLORIDE 0.9% 1,000 ML IV SCH ×3 (03:21→22:34)
[2017-07-17] MEDS: PANTOPRAZOLE 40MG TABLET PO SCH (05:31)
[2017-07-17] MEDS ORDERED: PEGFILGRASTIM 6 MG/0.6 ML SYR SQ ONE (06:00)
[2017-07-17] MEDS ORDERED: TBO-FILGRASTIM 300 MCG/0.5 ML SYR SQ SCH (08:00)
[2017-07-17] MEDS ORDERED: HOME MED 1 EA UNK (Omeprazole [Omeprazole] 40 MG) PO SCH (09:00)
[2017-07-17] MEDS ORDERED: PNEUMOCOCCAL VACCINE 0.5 ML IMVAC ONE (09:00)
[2017-07-17] MEDS: DICYCLOMINE HCL 10 MG CAP PO SCH (09:36)
[2017-07-17] MEDS: VITAMIN D 1000 UNIT TAB PO SCH (09:37)
[2017-07-17] MEDS: BISOPROLOL 5 MG TABLET PO SCH (09:37)
[2017-07-17] MEDS: FENTANYL CITR 100 MCG/2 ML IV PRN ×2 (09:38→22:30)
[2017-07-17] MEDS ORDERED: POTASSIUM CL 40 MEQ in NA CHLORIDE 0.9% 500 ML IV SCH (11:00)
[2017-07-17] MEDS: ENOXAPARIN 40 MG/0.4 ML SQ SCH (11:43)
[2017-07-17] MEDS: IBUPROFEN 200 MG TAB PO PRN (11:43)
[2017-07-17 11:55] LABS: Hematocrit 26.7 % (36.0-45.0); MCH 30.9 pg (27.0-35.0); MCV 91.5 fL (80-100); MPV 8.7 fL (7.6-11.3); RBC Red Blood Cell Count 2.92 M/uL (3.86-4.86)
[2017-07-17 12:27] LABS: BUN Blood Urea Nitrogen 11 mg/dL (6-20); Bicarbonate 23 mEq/L (21-31); Glomerular Filtration Rate > 90 mL/min (=/>90); Glucose Level 123 mg/dL (65-120); Magnesium 1.7 mg/dL (1.8-2.5); Phosphorus 1.4 mg/dL (2.5-4.3); Sodium Level 134 mEq/L (135-145)
[2017-07-17 12:28] LABS: Ferritin 1409.9 ng/ml (11.0-306.8); Folic Acid, (Folate) 9.3 ng/ml (>5.21); Transferrin 143 mg/dL (192-382)
--- NOTE | 2017-07-17 15:28 | PN ---
Subjective: Today she is doing well. She has no chest pain, no abdominal pain, no fever, no chills, good appetite. She continued to have some abdominal cramping with diarrhea. She had 3 bowel moveme nts a day. C diff pending. Objective: Vital Signs: Blood pressure 124/58, respiratory rate 18, pulse 82, temperature 97.4. General: She is fully alert, oriented x3. Does not look in any distress. HEENT: Atraumatic, normocephalic. PERRLA. Oral mucosa is moist. Neck: Supple. No JVD. No carotid bruits. Chest: Clear to auscultation. Good air entry. Heart: Regular rate and rhythm. S1, S2 normal. No gallop or murmur. Abdomen: Soft with minimal tenderness to palpation. No guarding. No rebound. Positive bowel sound s. Extremities: No clubbing, cyanosis, or edema. No calf tenderness. Neurologic: Grossly intact. Cranial exam 2 through 12 intact. Normal sensation. Normal reflexes. Normal muscle strength. Laboratory Data: Today showed white blood cells , hemoglobin 8.6, platelets 100. Chemistr y showed sodium 132, potassium 3.3, calcium 7.9, total bilirubin 1.4, ALT of 7, albumin 2.8. Assessment And Plan: 1.Neutropenic fever. The patient currently on cefepime and no more fever. Blood cultures pending, negative. The patient received Neulasta on day of admission. She continued to be neutropenic, we wi ll continue IV antibiotics until her neutropenia resolves and discharged on oral antibiotics. 2. on CAT scan. No evidence of . She continued to have diarrhea. She is alrea dy on cefepime and Flagyl. C diff is still pending. If C diff comes back negative, we will consider using Imodium. 3.Anemia much worse secondary to chemo, observe. 4.We will transfuse if hemoglobin below 8. Hypokalemia we will replace. 5.Deep vein thrombosis prophylaxis. We will use Lovenox. Her platelet is still around 100. JUSTINE/HOMER Voice ID: [id number] Report ID: [id number]
[2017-07-18] MEDS: CEFEPIME/SWI 2gm 2 GM/20 ML SYR IV SCH ×3 (00:25→16:40)
[2017-07-18] MEDS: METRONIDAZOLE 500mg IVPB 500 MG/100 ML BAG IV SCH ×3 (00:26→16:40)
[2017-07-18 05:13] LABS: Hematocrit 24.5 % (36.0-45.0); MCH 31.1 pg (27.0-35.0); MPV 9.1 fL (7.6-11.3); RBC Red Blood Cell Count 2.72 M/uL (3.86-4.86)
[2017-07-18 05:36] LABS: ALT/SGPT 6 IU/L (10-60); AST/SGOT 10 IU/L (10-42); Albumin 2.5 g/dL (3.2-5.5); Alkaline Phosphatase 34 IU/L (42-121); BUN Blood Urea Nitrogen 11 mg/dL (6-20); Bicarbonate 23 mEq/L (21-31); Bilirubin Total 1.1 mg/dL (0.3-1.2); Glomerular Filtration Rate > 90 mL/min (=/>90); Glucose Level 92 mg/dL (65-120); Potassium 3.3 mEq/L (3.6-5.0); Protein, Total 4.2 g/dL (6.0-8.3); Sodium Level 134 mEq/L (135-145)
[2017-07-18] MEDS: PANTOPRAZOLE 40MG TABLET PO SCH (05:51)
[2017-07-18] MEDS: KCL 20 MEQ/100 mL IVPB 20 MEQ/100 ML BAG IV SCH ×2 (06:30→09:17)
[2017-07-18] MEDS: ENOXAPARIN 40 MG/0.4 ML SQ SCH (09:17)
[2017-07-18] MEDS: DICYCLOMINE HCL 10 MG CAP PO SCH (09:17)
[2017-07-18] MEDS: BISOPROLOL 5 MG TABLET PO SCH (09:18)
[2017-07-18] MEDS: VITAMIN D 1000 UNIT TAB PO SCH (09:18)
[2017-07-18] MEDS: NA CHLORIDE 0.9% 1,000 ML IV SCH ×2 (09:19→20:14)
--- NOTE | 2017-07-18 12:56 | EKG ---
Test Date: 2017-07-16 Test Time: 04:55:14 Jumpbasting Collar Baster: COLLIN MEASUREMENT RESULTS: Intervals: Rate: 92 NV: 126 QRSD: 68 QT: 324 QTc: 400 [place]: P: 25 NV: 126 QRS: 9 T: 6 INTERPRETIVE STATEMENTS: Normal sinus rhythm Normal ECG Compared to ECG 01/18/2017 16:27:38 Myocardial infarct finding no longer present Electronically Signed On 07-18-17 12:55:13 CDT by Bhavesh Page
--- NOTE | 2017-07-18 16:05 | PN ---
Date of Progress Note: 07/18/2017 Subjective: Currently, the patient sitting on the side of the bed. She is doing well. She had no f ever overnight, but she continued to have diarrhea, 3-4 bowel movements a day. Stool C. diff is stil l pending. No nausea. No vomiting. She is able to eat. She is wearing a mask. Review of Systems: Otherwise, negative. Physical Examination: Vital Signs: Blood pressure is 124/58, respiratory rate 16, pulse 70, temp 97.8. General: She is fully alert, oriented x3. Does not look in any distress. HEENT: Atraumatic, normocephalic. PERRLA. Oral mucosa is moist. Neck: Supple. No JVD. No carotid bruits. Chest: Clear to auscultation. Good air entry. Heart: Regular rate and rhythm. S1, S2 normal. No gallop or murmur. Abdomen: Minimal tenderness to palpation diffusely. There is no guarding, no rebound. Positive bow el sounds. Extremities: No clubbing, cyanosis, or edema. No calf tenderness. Neurologic: Grossly intact. Laboratory Data: Today, showed CBC with white blood cells , hemoglobin 8.5, platelets 96. CMP is still pending, except for sodium 134, potassium 3.3, calcium 7.9. Her iron profile showed lo w iron with elevated ferritin at 1409. Cultures all still pending, negative. Assessment And Plan: 1.Neutropenic fever, status post chemotherapy. The patient empirically on cefepime and Flagyl. The re is no further fever. Culture so far all negative. The patient received Neulasta on the day of ad mission, so we will have to wait until her ANC at least above 1000 before discharge. The patient hav e an appointment with Oncology tomorrow, but maybe Oncology can be called and see the patient inhouse . 2.Colitis acute on CAT scan. The patient is on broad-spectrum antibiotic with cefepime and she is a lso on Flagyl. C. diff is still pending. The patient continued to have some diarrhea. No evidence of dehydration. 3.Hypokalemia. I will replace. 4.Anemia with pancytopenia mostly secondary to chemotherapy. 5.Breast cancer. She is on chemotherapy. 6.Diet. Continue clear liquids given colitis with significant diarrhea. 7.DVT prophylaxis with Lovenox. We will hold if platelets below 40. JUSTINE/HOMER Voice ID: [id number] Report ID: [id number]
[2017-07-18] MEDS: FENTANYL CITR 100 MCG/2 ML IV PRN (23:00)
[2017-07-19] MEDS: CEFEPIME/SWI 2gm 2 GM/20 ML SYR IV SCH ×3 (00:57→17:40)
[2017-07-19] MEDS: METRONIDAZOLE 500mg IVPB 500 MG/100 ML BAG IV SCH ×3 (00:57→17:40)
[2017-07-19] MEDS: NA CHLORIDE 0.9% 1,000 ML IV SCH ×2 (05:00→13:18)
[2017-07-19] MEDS: PANTOPRAZOLE 40MG TABLET PO SCH (05:43)
[2017-07-19] MEDS: VITAMIN D 1000 UNIT TAB PO SCH (08:10)
[2017-07-19] MEDS: ENOXAPARIN 40 MG/0.4 ML SQ SCH (08:11)
[2017-07-19] MEDS: DICYCLOMINE HCL 10 MG CAP PO SCH (08:11)
[2017-07-19] MEDS: BISOPROLOL 5 MG TABLET PO SCH (08:11)
[2017-07-19] MEDS: FENTANYL CITR 100 MCG/2 ML IV PRN ×4 (08:12→21:28)
[2017-07-19 10:06] LABS: BUN Blood Urea Nitrogen 9 mg/dL (6-20); Glomerular Filtration Rate > 90 mL/min (=/>90); Glucose Level 103 mg/dL (65-120); Magnesium 1.5 mg/dL (1.8-2.5)
[2017-07-19 10:07] LABS: Bicarbonate 23 mEq/L (21-31); Sodium Level 133 mEq/L (135-145)
[2017-07-19 10:11] LABS: Potassium 2.9 mEq/L (3.6-5.0)
[2017-07-19 10:13] LABS: Absolute Lymphocytes (CBC) 0.7 K/uL (0.7-4.9); Absolute Monocytes 0.9 K/uL (0.1-1.3); Absolute Neutrophil 0.4 K/uL (1.8-8.0); Basophils % 0.3 % (0-1.3); Eosinophils % 0.4 % (0-4.4); Lymphocytes % 36.7 % (15.3-44.8); MCH 30.8 pg (27.0-35.0); MCV 89.7 fL (80-100); MPV 9.2 fL (7.6-11.3); Monocytes % 43.9 % (3.3-12.3)
[2017-07-19] MEDS ORDERED: Magnesium Sulfate 2gm IVPB 2 G/50 ML BAG IV ONE (10:36)
[2017-07-19 10:47] LABS: Platelet Estimate DECR; Platelets, Giant FEW
[2017-07-19 10:48] LABS: Urine White Blood Cell Casts DIFF
[2017-07-19 10:49] LABS: Blood Morphology Comment NOTED (NOT SEEN); Ovalocytes 1+
[2017-07-19] MEDS: KCL 20 MEQ/100 mL IVPB 20 MEQ/100 ML BAG IV SCH ×3 (10:50→15:00)
--- NOTE | 2017-07-19 13:41 | P.PN ---
Subjective Date of Service: 07/19/17 Primary Care Provider: Oncology-Dr. Hussein Chief Complaint: Abdominal pain/diarrhea/neutropenic Subjective: Other (Patient is slightly improved. Patient with poor appetite. Patient reports some diarrhea.) Physical Examination - Vital Signs Temperature: 99.9 F Blood Pressure: 116/55 Pulse: 79 Respirations: 16 Pulse Ox (%): 97 - Physical Exam General: Alert, In no apparent distress, Oriented x3, Cooperative HEENT: Atraumatic Neck: Supple Respiratory: Clear to auscultation bilaterally, Normal air movement Cardiovascular: Normal pulses, Regular rate/rhythm Gastrointestinal: Normal bowel sounds, Soft and benign, Non-distended, No tenderness, No masses, No rebound, No guarding Musculoskeletal: No erythema, No tenderness, No warmth Integumentary: No erythema, No warmth, No cyanosis Neurological: Normal speech, Normal strength at 5/5 x4 extr, Normal tone, Normal affect - Studies Medications List Reviewed: Yes Assessment & Plan - Problems (Diagnosis) (1) Ileitis Current Visit: Yes Status: Acute Plan: Patient still with mild abdominal pain. Patient also reports some diarrhea. C. diff colitis pending. Will continue with antibiotic therapy. Continue with IV fluids. Patient with history of breast cancer. Patient recently had chemotherapy. Case discussed at length with oncology. Patient neutropenic at this time. Will start Neupogen. Once abdominal pain resolves and she is without fever, the patient can possibly be discharge within the next 2-3 days. (2) Hypokalemia Current Visit: Yes Status: Acute Plan: Will continue to monitor and replace appropriately. Replacement protocol in place (3) Anemia Current Visit: Yes Status: Acute Plan: Iron deficiency noted. Will start medication. Qualifiers: Anemia type: iron deficiency Iron deficiency anemia type: unspecified iron deficiency Qualified Code(s): D50.9 - Iron deficiency anemia, unspecified (4) Abdominal pain Onset Date: 07/19/17 Current Visit: Yes Status: Acute Plan: Abdominal pain likely related to daily at this. Will continue with above plan of care. Qualifiers: Abdominal location: generalized Qualified Code(s): R10.84 - Generalized abdominal pain (5) Breast cancer Onset Date: 07/19/17 Current Visit: Yes Status: Chronic Plan: Patient with history of breast cancer patient recently had chemotherapy. Will continue with above plan of care. Qualifiers: Breast location: lower inner quadrant of breast Estrogen receptor status: positive Patient sex: female Laterality: right Qualified Code(s): C50.311 - Malignant neoplasm of lower-inner quadrant of right female breast; Z17.0 - Estrogen receptor positive status [ER+]; Z17.0 - Estrogen receptor positive status [ER+] (6) Diarrhea Onset Date: 07/19/17 Current Visit: Yes Status: Acute Plan: Await C. diff culture. Continue with current medication. Qualifiers: Diarrhea type: presumed infectious Qualified Code(s): R19.7 - Diarrhea, unspecified (7) Neutropenia Onset Date: 07/19/17 Current Visit: Yes Status: Acute Plan: Case discussed at length with oncology. Will start Neupogen. Qualifiers: Neutropenia type: secondary to cancer chemotherapy Qualified Code(s): D70.1 - Agranulocytosis secondary to cancer chemotherapy; T45.1X5A - Adverse effect of antineoplastic and immunosuppressive drugs, initial encounter; T45.1X5A - Adverse effect of antineoplastic and immunosuppressive drugs, initial encounter Discharge Plan: Home Time Spent Managing Pts Care (In Minutes): 55
[2017-07-20] MEDS: METRONIDAZOLE 500mg IVPB 500 MG/100 ML BAG IV SCH ×3 (00:05→18:07)
[2017-07-20] MEDS: CEFEPIME/SWI 2gm 2 GM/20 ML SYR IV SCH ×3 (00:05→18:06)
[2017-07-20] MEDS: NA CHLORIDE 0.9% 1,000 ML IV SCH ×3 (00:05→22:25)
[2017-07-20] MEDS: LOPERAMIDE HCL 2 MG CAPSULE PO PRN ×3 (00:11→18:06)
[2017-07-20] MEDS: FENTANYL CITR 100 MCG/2 ML IV PRN ×6 (01:24→22:20)
[2017-07-20] MEDS ORDERED: POTASSIUM 25 MEQ EFFERV TAB PO ONE ×3 (03:23→11:58)
[2017-07-20] MEDS: PANTOPRAZOLE 40MG TABLET PO SCH (05:38)
[2017-07-20] MEDS ORDERED: TBO-FILGRASTIM 480 MCG/0.8 ML SYR SQ SCH (09:00)
[2017-07-20] MEDS: DICYCLOMINE HCL 10 MG CAP PO SCH (09:50)
[2017-07-20] MEDS: ENOXAPARIN 40 MG/0.4 ML SQ SCH (09:50)
[2017-07-20] MEDS: VITAMIN D 1000 UNIT TAB PO SCH (09:50)
[2017-07-20] MEDS: BISOPROLOL 5 MG TABLET PO SCH (09:50)
[2017-07-20 10:32] LABS: Absolute Lymphocytes (CBC) 0.9 K/uL (0.7-4.9); Absolute Neutrophil 1.4 K/uL (1.8-8.0); Eosinophils % 0.1 % (0-4.4); MPV 8.8 fL (7.6-11.3)
[2017-07-20 10:36] LABS: Absolute Monocytes 1.6 K/uL (0.1-1.3); Lymphocytes % 22.6 % (15.3-44.8); MCH 30.2 pg (27.0-35.0); MCV 89.8 fL (80-100); Monocytes % 41.2 % (3.3-12.3); RBC Red Blood Cell Count 3.01 M/uL (3.86-4.86)
[2017-07-20 10:40] LABS: BUN Blood Urea Nitrogen 6 mg/dL (6-20); Bicarbonate 25 mEq/L (21-31); Glomerular Filtration Rate > 90 mL/min (=/>90); Glucose Level 131 mg/dL (65-120); Magnesium 1.9 mg/dL (1.8-2.5); Potassium 3.3 mEq/L (3.6-5.0); Sodium Level 135 mEq/L (135-145)
[2017-07-20 11:15] LABS: Anisocytosis 2+; Blood Morphology Comment NOTED (NOT SEEN); Platelet Estimate DECR; Poikilocytosis 1+
--- NOTE | 2017-07-20 16:12 | P.PN ---
Subjective Date of Service: 07/20/17 Primary Care Provider: Oncology-Dr. Hussein Chief Complaint: Abdominal pain/diarrhea/neutropenic Subjective: Improving (Patient is slightly improved. Patient able tolerate current diet.) Physical Examination - Vital Signs Temperature: 97.5 F Blood Pressure: 116/59 Pulse: 63 Respirations: 18 Pulse Ox (%): 98 - Physical Exam General: Alert, In no apparent distress, Oriented x3, Cooperative HEENT: Atraumatic Neck: Supple Respiratory: Clear to auscultation bilaterally, Normal air movement Cardiovascular: Normal pulses, Regular rate/rhythm Gastrointestinal: Normal bowel sounds, Soft and benign, Non-distended, No tenderness, No masses, No rebound, No guarding Musculoskeletal: No erythema, No tenderness, No warmth Integumentary: No erythema, No warmth, No cyanosis Neurological: Normal speech, Normal strength at 5/5 x4 extr, Normal tone, Normal affect - Studies Medications List Reviewed: Yes Assessment & Plan - Problems (Diagnosis) (1) Ileitis Current Visit: Yes Status: Acute Plan: Patient overall has improved. Will advance her diet. Will recommend increase ambulation. Case discussed at length with GI. Suspect ileitis related to chemotherapy. C. diff culture has been negative. Will continue with current medications. Case also discussed at length with oncology. Patient neutropenic. Neupogen started yesterday. Anticipate possible discharge in the next 1-2 days once the abdominal pain has resolved and patient is without fever. (2) Hypokalemia Current Visit: Yes Status: Acute Plan: Will continue to monitor and replace appropriately. Replacement protocol in place (3) Anemia Current Visit: Yes Status: Acute Plan: Iron deficiency noted. Will continue with iron supplementation Qualifiers: Anemia type: iron deficiency Iron deficiency anemia type: unspecified iron deficiency Qualified Code(s): D50.9 - Iron deficiency anemia, unspecified (4) Abdominal pain Onset Date: 07/19/17 Current Visit: Yes Status: Acute Plan: Abdominal pain likely related to ileitis secondary to chemotherapy. Will continue with above plan of care. Qualifiers: Abdominal location: generalized Qualified Code(s): R10.84 - Generalized abdominal pain (5) Breast cancer Onset Date: 07/19/17 Current Visit: Yes Status: Chronic Plan: Patient with history of breast cancer patient recently had chemotherapy. Will continue with above plan of care. Qualifiers: Breast location: lower inner quadrant of breast Estrogen receptor status: positive Patient sex: female Laterality: right Qualified Code(s): C50.311 - Malignant neoplasm of lower-inner quadrant of right female breast; Z17.0 - Estrogen receptor positive status [ER+]; Z17.0 - Estrogen receptor positive status [ER+] (6) Diarrhea Onset Date: 07/19/17 Current Visit: Yes Status: Acute Plan: C diff culture negative. Will continue with medication. Qualifiers: Diarrhea type: presumed infectious Qualified Code(s): R19.7 - Diarrhea, unspecified (7) Neutropenia Onset Date: 07/19/17 Current Visit: Yes Status: Acute Plan: Case discussed at length with oncology. Will continue with Neupogen until white count improves. Qualifiers: Neutropenia type: secondary to cancer chemotherapy Qualified Code(s): D70.1 - Agranulocytosis secondary to cancer chemotherapy; T45.1X5A - Adverse effect of antineoplastic and immunosuppressive drugs, initial encounter; T45.1X5A - Adverse effect of antineoplastic and immunosuppressive drugs, initial encounter Discharge Plan: Home Plan to discharge in: 24 Hours Time Spent Managing Pts Care (In Minutes): 55
[2017-07-21] MEDS: CEFEPIME/SWI 2gm 2 GM/20 ML SYR IV SCH ×3 (00:30→16:29)
[2017-07-21] MEDS: METRONIDAZOLE 500mg IVPB 500 MG/100 ML BAG IV SCH ×3 (00:31→16:28)
[2017-07-21] MEDS: FENTANYL CITR 100 MCG/2 ML IV PRN ×2 (02:19→06:18)
[2017-07-21 05:22] LABS: Magnesium 1.7 mg/dL (1.8-2.5); Potassium 3.8 mEq/L (3.6-5.0)
[2017-07-21] MEDS ORDERED: MAGNESIUM SULFATE 1 gm IVPB 1 GM/100 ML BAG IV ONE (06:11)
[2017-07-21] MEDS ORDERED: POTASSIUM 25 MEQ EFFERV TAB PO ONE (06:12)
[2017-07-21] MEDS: PANTOPRAZOLE 40MG TABLET PO SCH (06:18)
[2017-07-21 07:51] LABS: Absolute Lymphocytes (CBC) 1.8 K/uL (0.7-4.9); Absolute Monocytes 0.2 K/uL (0.1-1.3); Absolute Neutrophil 19.7 K/uL (1.8-8.0); Basophils % 0.3 % (0-1.3); Eosinophils % 0.1 % (0-4.4); Hematocrit 27.4 % (36.0-45.0); Lymphocytes % 8.3 % (15.3-44.8); MCH 30.2 pg (27.0-35.0); MCV 91.2 fL (80-100); MPV 8.4 fL (7.6-11.3); Monocytes % 0.7 % (3.3-12.3)
--- NOTE | 2017-07-21 09:19 | P.PN ---
Subjective Date of Service: 07/21/17 Primary Care Provider: Oncology-Dr. Hussein Chief Complaint: Abdominal pain/diarrhea/neutropenic Subjective: Improving (Patient doing better. She is without any abdominal pain. No nausea vomiting noted.) Physical Examination - Vital Signs Temperature: 99.2 F Blood Pressure: 103/59 Pulse: 96 Respirations: 18 Pulse Ox (%): 96 - Physical Exam General: Alert, In no apparent distress, Oriented x3, Cooperative HEENT: Atraumatic Neck: Supple Respiratory: Clear to auscultation bilaterally, Normal air movement Cardiovascular: Normal pulses, Regular rate/rhythm Gastrointestinal: Normal bowel sounds, Soft and benign, Non-distended, No tenderness, No masses, No rebound, No guarding Musculoskeletal: No erythema, No tenderness, No warmth Integumentary: No tenderness/swelling, No erythema, No warmth, No cyanosis Neurological: Normal speech, Normal strength at 5/5 x4 extr, Normal tone, Normal affect Lymphatics: No axilla or inguinal lymphadenopathy - Studies Medications List Reviewed: Yes Assessment & Plan - Problems (Diagnosis) (1) Ileitis Current Visit: Yes Status: Acute Plan: Patient overall has improved. Will continue to advance her diet. What physical therapy assess ambulation. Patient with ileitis related to chemotherapy. C. diff culture has been negative. White count elevated, will discontinue Neupogen. Anticipate discharge later today if able to ambulate and tolerating her diet. Patient will need colonoscopy in 4-6 weeks. (2) Hypokalemia Current Visit: Yes Status: Acute Plan: Will continue to monitor and replace appropriately. Replacement protocol in place (3) Anemia Current Visit: Yes Status: Acute Plan: Iron deficiency noted. Will continue with iron supplementation Qualifiers: Anemia type: iron deficiency Iron deficiency anemia type: unspecified iron deficiency Qualified Code(s): D50.9 - Iron deficiency anemia, unspecified (4) Abdominal pain Onset Date: 07/19/17 Current Visit: Yes Status: Acute Plan: Abdominal pain likely related to ileitis secondary to chemotherapy. Will continue with above plan of care. Qualifiers: Abdominal location: generalized Qualified Code(s): R10.84 - Generalized abdominal pain (5) Breast cancer Onset Date: 07/19/17 Current Visit: Yes Status: Chronic Plan: Patient with history of breast cancer patient recently had chemotherapy. Will continue with above plan of care. Qualifiers: Breast location: lower inner quadrant of breast Estrogen receptor status: positive Patient sex: female Laterality: right Qualified Code(s): C50.311 - Malignant neoplasm of lower-inner quadrant of right female breast; Z17.0 - Estrogen receptor positive status [ER+]; Z17.0 - Estrogen receptor positive status [ER+] (6) Diarrhea Onset Date: 07/19/17 Current Visit: Yes Status: Acute Plan: C diff culture negative. Will continue with medication. This has resolved Qualifiers: Diarrhea type: presumed infectious Qualified Code(s): R19.7 - Diarrhea, unspecified (7) Neutropenia Onset Date: 07/19/17 Current Visit: Yes Status: Acute Plan: Case discussed at length with oncology. Patient now with elevated white count. Will discontinue Neupogen. Qualifiers: Neutropenia type: secondary to cancer chemotherapy Qualified Code(s): D70.1 - Agranulocytosis secondary to cancer chemotherapy; T45.1X5A - Adverse effect of antineoplastic and immunosuppressive drugs, initial encounter; T45.1X5A - Adverse effect of antineoplastic and immunosuppressive drugs, initial encounter Discharge Plan: Home Plan to discharge in: 24 Hours Time Spent Managing Pts Care (In Minutes): 55
[2017-07-21] MEDS: BISOPROLOL 5 MG TABLET PO SCH (09:20)
[2017-07-21] MEDS: ENOXAPARIN 40 MG/0.4 ML SQ SCH (09:23)
[2017-07-21] MEDS: DICYCLOMINE HCL 10 MG CAP PO SCH (09:23)
[2017-07-21] MEDS: VITAMIN D 1000 UNIT TAB PO SCH (09:23)
[2017-07-21] MEDS: NA CHLORIDE 0.9% 1,000 ML IV SCH ×2 (09:26→16:29)
[2017-07-21 12:42] LABS: Anisocytosis 1+; Blood Morphology Comment NOTED (NOT SEEN); Dohle Bodies PRESENT; Ovalocytes 1+; Platelet Estimate DECR; Polychromasia 1+
--- NOTE | 2017-07-21 15:04 | P.DS ---
Admission Date: 07/16/17 Discharge Date: 07/21/17 Primary Care Provider: Oncology-Dr. Hussein Disposition: ROUTINE DISCHARGE Discharge Condition: GOOD Reason for Admission: Abdominal pain/diarrhea/neutropenic Consultations: GI-Dr. Lancaster Oncology-Dr. Hussein - Problems (1) Ileitis Current Visit: Yes Status: Acute (2) Hypokalemia Current Visit: Yes Status: Acute (3) Anemia Current Visit: Yes Status: Acute Qualifiers: Anemia type: iron deficiency Iron deficiency anemia type: unspecified iron deficiency Qualified Code(s): D50.9 - Iron deficiency anemia, unspecified (4) Abdominal pain Onset Date: 07/19/17 Current Visit: Yes Status: Acute Qualifiers: Abdominal location: generalized Qualified Code(s): R10.84 - Generalized abdominal pain (5) Breast cancer Onset Date: 07/19/17 Current Visit: Yes Status: Chronic Qualifiers: Breast location: lower inner quadrant of breast Estrogen receptor status: positive Patient sex: female Laterality: right Qualified Code(s): C50.311 - Malignant neoplasm of lower-inner quadrant of right female breast; Z17.0 - Estrogen receptor positive status [ER+]; Z17.0 - Estrogen receptor positive status [ER+] (6) Diarrhea Onset Date: 07/19/17 Current Visit: Yes Status: Acute Qualifiers: Diarrhea type: unspecified type Qualified Code(s): R19.7 - Diarrhea, unspecified (7) Neutropenia Onset Date: 07/19/17 Current Visit: Yes Status: Acute Qualifiers: Neutropenia type: secondary to cancer chemotherapy Qualified Code(s): D70.1 - Agranulocytosis secondary to cancer chemotherapy; T45.1X5A - Adverse effect of antineoplastic and immunosuppressive drugs, initial encounter; T45.1X5A - Adverse effect of antineoplastic and immunosuppressive drugs, initial encounter (8) Hypertension Current Visit: Yes Status: Chronic Qualifiers: Hypertension type: essential hypertension Qualified Code(s): I10 - Essential (primary) hypertension (9) Hypomagnesemia Current Visit: Yes Status: Acute Brief History of Present Illness: 71-year-old female presented emergency room with abdominal pain and nausea and vomiting. Patient has history of breast cancer recently had chemotherapy. The patient was evaluated emergency room. Ileitis was found on CT scan. The patient was admitted for further evaluation and treatment. Hospital Course: Patient presented with abdominal pain, nausea and vomiting. Patient found to have ileitis secondary to her chemotherapy. Patient evaluated by GI. GI felt this was chemo all related. During the course of her stay the patient was treated with antibiotic therapy. C. diff colitis was ruled out. Patient has improved, at discharge she denied any abdominal pain, nausea vomiting. She was able to ambulate. Patient was without fever for at least 24 hr. At discharge she will continue with Cefdinir 300 mg once daily and Flagyl 500 mg 1 pill 3 times a day for 7 days. Patient will also be provided Zofran 4 mg 1 pill 3 times a day as needed for nausea. Patient will continue with her current diet- low residue. Recommendation is for the patient to follow up with GI in 2-4 weeks to monitor progress. Patient will need colonoscopy in 4-6 weeks. Patient with history of hypertension. Patient will continue with her medication. Recommendation is to maintain blood pressures less 150/80. Further adjustment can be done by her PCP. Patient may need to hold her blood pressure medication if systolic is less than 110. Patient with history of breast cancer. She is to hold her chemotherapy medication. She has a follow up with oncology next week. Patient with low magnesium. Patient will continue with magnesium oxide 400 mg daily. Recommendation is to recheck lab in 1 week to monitor progress. Patient with anemia. Patient had iron deficiency anemia. Patient will continue with iron 325 mg 1 pill twice daily. Recommendation is to recheck CBC in 1-2 weeks to monitor progress. The patient was neutropenic during her stay. Patient was given Neupogen. At discharge white count was elevated. Case discussed at length with oncology. Patient will not take her chemotherapy medication until she is seen by oncology next week. Vital Signs/Physical Exam: Temp Pulse Resp BP Pulse Ox 99.5 F 81 18 107/52 L 97 07/21/17 12:00 07/21/17 12:00 07/21/17 12:00 07/21/17 12:07/21/17 12:00 General: Alert, In no apparent distress, Oriented x3, Cooperative HEENT: Atraumatic, Mucous membr. moist/pink Neck: Supple, No Thyromegaly Respiratory: Clear to auscultation bilaterally, Normal air movement Cardiovascular: Normal pulses, Regular rate/rhythm Gastrointestinal: Normal bowel sounds, Soft and benign, Non-distended, No tenderness, No masses, No rebound, No guarding Musculoskeletal: No erythema, No tenderness, No warmth Integumentary: No tenderness/swelling, No erythema, No warmth, No cyanosis Neurological: Normal speech, Normal strength at 5/5 x4 extr, Normal tone, Normal affect Laboratory Data at Discharge: WBC 21.7 K/uL (4.3-10.9) H* D 07/21/17 07:30 Hgb 9.1 g/dL (12.0-15.0) L 07/21/17 07:30 Hct 27.4 % (36.0-45.0) L 07/21/17 07:30 Plt Count 126 K/uL (152-406) L 07/21/17 07:30 PT 15.1 SECONDS (9.5-12.5) H 07/16/17 05:23 INR 1.28 07/16/17 05:23 APTT 24.0 SECONDS (24.3-36.9) L 07/16/17 05:23 Sodium 137 mEq/L (135-145) 07/21/17 04:23 Potassium 3.8 mEq/L (3.6-5.0) 07/21/17 04:23 BUN 6 mg/dL (6-20) 07/21/17 04:23 Creatinine 0.66 mg/dL (0.44-1.00) 07/21/17 04:23 Glucose 94 mg/dL (65-120) 07/21/17 04:23 Phosphorus 1.4 mg/dL (2.5-4.3) L 07/17/17 11:23 Magnesium 1.7 mg/dL (1.8-2.5) L 07/21/17 04:23 Total Bilirubin 1.1 mg/dL (0.3-1.2) 07/18/17 04:44 AST 10 IU/L (10-42) 07/18/17 04:44 ALT 6 IU/L (10-60) L 07/18/17 04:44 Alkaline Phosphatase 34 IU/L (42-121) L 07/18/17 04:44 B-Natriuretic Peptide 20 pg/ml (<=100) 07/16/17 05:23 Lipase 25 U/L (22-51) 07/16/17 05:23 Home Medications: Bisoprolol Fumarate [Zebeta*] 5 mg PO DAILY 03/18/15 Lipase/Protease/Amylase [Creon Dr 12,000 Units Capsule] 2 each PO TID 03/18/15 Pravastatin Sodium 40 mg PO DAILY 03/18/15 Acetaminophen [Tylenol] 500 mg PO PRN PRN 07/16/17 Cholecalciferol (Vitamin D3) [Vitamin D3] 1,000 units PO DAILY 07/16/17 Dicyclomine HCl 20 mg PO DAILY 07/16/17 Ibuprofen [Motrin*] 400 mg PO TID PRN 07/16/17 Omeprazole 40 mg PO DAILY 07/16/17 Cefdinir [Cefdinir*] 300 mg PO DAILY #7 cap 07/21/17 Ferrous Sulfate [Iron] 325 mg PO BID #60 tablet 07/21/17 Magnesium Oxide [Mag 0X Tab] 400 mg PO DAILY #30 tab 07/21/17 Metronidazole [Flagyl] 500 mg PO Q8H #21 tablet 07/21/17 Ondansetron HCl [Zofran] 4 mg PO TID PRN #15 tablet 07/21/17 New Medications: Cefdinir [Cefdinir*] 300 mg PO DAILY #7 cap Ferrous Sulfate [Iron] 325 mg PO BID #60 tablet Magnesium Oxide [Mag 0X Tab] 400 mg PO DAILY #30 tab Metronidazole [Flagyl] 500 mg PO Q8H #21 tablet Ondansetron HCl [Zofran] 4 mg PO TID PRN #15 tablet PRN Reason: Nausea Patient Discharge Instructions: 1. Patient will need to follow up with a PCP in 1 week to follow up this hospitalization. 2. Patient presented with abdominal pain, nausea and vomiting. Patient found to have ileitis secondary to his chemotherapy. Patient evaluated by GI. Patient has improved. At discharge no significant pain or nausea vomiting noted. At discharge she will continue with Cefdinir 300 mg once daily and Flagyl 500 mg 1 pill 3 times a day for 7 days. Patient will also be provided Zofran 4 mg 1 pill 3 times a day as needed for nausea. Patient will continue with her current diet-low residue. Recommendation is for the patient to follow up with GI in 2-4 weeks to monitor progress. Patient will need colonoscopy in 4-6 weeks. 3. Patient with history of hypertension. Patient will continue with her medication. Recommendation is to maintain blood pressures less 150/80. Further adjustment can be done by her PCP. Patient may need to hold her blood pressure medication if systolic is less than 110. 4. Patient with history of breast cancer. She is to hold her chemotherapy medication. She has a follow up with oncology next week. 5. Patient with low magnesium. Patient will continue with magnesium oxide 400 mg daily. Recommendation is to recheck lab in 1 week to monitor progress. 6. Patient with anemia. Patient had iron deficiency anemia. Patient will continue with iron 325 mg 1 pill twice daily. Recommendation is to recheck CBC in 1-2 weeks to monitor progress. 7. Oncology recommends that she not use her chemotherapy medication until she is seen by oncology next week. Diet: Low residue diet Activity: Fall precautions Time spent managing pt's care (in minutes): 55
== END 2017-07-21 17:51 | disposition home or self-care (01) | DRG 395 ==
LOC: ER 04:30 → ERHOLD 06:11 → 2ND 09:48
PROVIDERS: ADMIT Hospitalist; ATTEND Family Medicine
DX: K52.1 Toxic gastroenteritis and colitis (principal); D70.1 Agranulocytosis secondary to cancer chemotherapy; R50.81 Fever presenting with conditions classified elsewhere; T45.1X5A Adverse effect of antineoplastic and immunosuppressive drugs, initial encounter; E83.42 Hypomagnesemia; E87.6 Hypokalemia; D50.9 Iron deficiency anemia, unspecified; C50.311 Malignant neoplasm of lower-inner quadrant of right female breast; I10 Essential (primary) hypertension; Z17.0 Estrogen receptor positive status [ER+]; Z23 Encounter for immunization
CPT/HCPCS: 36415; 71045; 74177; 80048; 80053; 80076; 82550; 82553; 82607; 82728; 82746; 83540; 83605; 83690; 83735; 83880; 84100; 84132; 84466; 84484; 85025; 85044; 85610; 85730; 86850; 86900; 86901; 87040; 87086; 87088; 87493; 90670; 93005; 96361; 96365; 96368; 96375; 99285; G0009; J0692; J1446; J1650; J2405; J2505; J3010; J3370; J3475; J7030; Q9967

== ENCOUNTER 2017-09-15 07:18 | Day surgery (SDC) | payer OTHER ==
--- OUTSIDE RECORDS SUMMARY | 2017-09-15 07:22 | XMS REPORT | Clinical Summary ---
:1945 Author Organization [facility] Address [address] [place] [address] Care Team Providers Name Role Phone Jennifer Jennings MD Primary Care Provider Allergies Active Allergy Reactions Severity Noted Date Comments Aspirin 06/30/2016 Ciprofloxacin 06/30/2016 Meperidine 06/30/2016 Egg Derived 06/30/2016 Levofloxacin 06/30/2016 Milk Containing Products 06/30/2016 Morphine 06/30/2016 Penicillins 06/30/2016 Pineapple 06/30/2016 Hydrocodone-Acetaminophen 06/30/2016 Current Medications Prescription Sig. Disp. Refills Start Date End Date Status bisoprolol (ZEBETA) 5 mg daily. 05/13/2016 Active 5 MG tablet dicyclomine 20 mg daily. 06/17/2016 Active (BENTYL) 20 mg tablet omeprazole 40 mg daily. 05/23/2016 Active (PriLOSEC) 40 MG capsule CREON 24,000-76,000 24,000 units 06/03/2016 Active -120,000 unit of lipase 4 capsule,delayed (four) times a release(DR/EC) day. capsule pravastatin Take 40 mg by Active [...] 3 TIMES A DAY FOR 14 DAYS gabapentin 08/12/2016 10/18/2016 Discontinued (NEURONTIN) 600 mg tablet traMADol (ULTRAM) Take 1 tablet 30 tablet 0 08/17/2016 09/16/2016 50 mg tablet (50 mg total) by mouth every 6 (six) hours as needed for moderate pain for up to 30 days. Active Problems Problem Noted Date Nodule of right lung 07/21/2016 Encounters Date Type Specialty Care Team Description 11/16/2016 Refill Cardiothoracic Surgery Sharita Donis NP 10/21/2016 Telephone Cardiothoracic Surgery Sharita Donis NP 10/18/2016 Refill Cardiothoracic Surgery Sharita Donis NP 09/21/2016 Telephone Cardiothoracic Surgery Sharita Donis NP 09/20/2016 Refill Cardiothoracic Surgery Sharita Donis NP after 09/14/2016 Family History Medical History Relation Name Comments [...] Not on file Last Filed Vital Signs Not on file Plan of Treatment Health Maintenance Due Date Last Done Comments BREAST CANCER SCREENING 12/21/1993 COLON CANCER SCREENING 12/21/1993 SHINGRIX VACCINE (#1) 12/21/1993 ZOSTER VACCINE 2003 PNEUMOCOCCAL POLYSACCHARIDE VACCINE AGE 65 AND OVER 12/21/2008 PNEUMOCOCCAL-13 12/21/2008 INFLUENZA VACCINE 11/17/2017 Implants Implanted Type Area Plastic Injection Mold Maker Device Expiration Model / Identifier Date Serial / Lot Kit Selnt Plrl Air Leak 4ml Strl Progel - [id number] Surgical N/A: N/A [employer] [id number] / Implanted: 07/21/2016 (Quantity not on file) Implants; / Expanders; Extenders; Surgical Wires Results Not on fileafter 09/14/2016 Insurance Payer Benefit Plan / Group Subscriber ID Type Phone Address [facility] xxxxxxxxx HMO [phone] [place] [phone]
[2017-09-15] MEDS ORDERED: CEFAZOLIN/SWI 1gm 1 GM/10 ML SYR ONE (07:48)
[2017-09-15] MEDS ORDERED: Ringers Lactate 1,000 ML IV ONE (07:48)
[2017-09-15 08:02] LABS: Potassium 4.1 mEq/L (3.6-5.0)
[2017-09-15] MEDS ORDERED: NS 0.9% VIAL 20 ML ONE (08:27)
[2017-09-15] MEDS ORDERED: HEPARIN 5000 UNIT/ML 1 ML VIAL ONE (08:28)
[2017-09-15] MEDS ORDERED: LIDOCAINE 1% 20 ML MDV ONE (08:28)
[2017-09-15 08:43] LABS: Absolute Lymphocytes (CBC) 0.7 K/uL (0.7-4.9); Absolute Monocytes 0.2 K/uL (0.1-1.3); Absolute Neutrophil 1.4 K/uL (1.8-8.0); Basophils % 1.4 % (0-1.3); Eosinophils % 0.6 % (0-4.4); Hematocrit 33.1 % (36.0-45.0); Lymphocytes % 30.5 % (15.3-44.8); MCH 33.3 pg (27.0-35.0); MPV 9.1 fL (7.6-11.3); Monocytes % 7.1 % (3.3-12.3); RBC Red Blood Cell Count 3.24 M/uL (3.86-4.86)
[2017-09-15] MEDS ORDERED: MIDAZOLAM HCL 2 MG/2 ML INJ ONE (08:51)
[2017-09-15] MEDS ORDERED: PROPOFOL 200 MG/20 ML VIAL IV ONE (08:51)
[2017-09-15] MEDS ORDERED: FENTANYL CITR 100 MCG/2 ML ONE (08:51)
[2017-09-15 09:40] LABS: Anisocytosis 2+; Blood Morphology Comment NOTED (NOT SEEN); Platelet Estimate ADEQ; Urine White Blood Cell Casts OK
--- NOTE | 2017-09-15 09:46 | P.BOP ---
Preoperative diagnosis: metastatic breast cancer Postoperative diagnosis: same Primary procedure: 1. Portacath placement Secondary procedure: 2. Interpretation of fluoroscopy Estimated blood loss: <10cc Specimen: none Findings: as above Anesthesia: General Complications: None Transferred to: Recovery Room Condition: Good
--- NOTE | 2017-09-15 09:51 | RAD REPORT ---
EXAM DESCRIPTION: RAD - Chest Pa And Lat (2 Views) - 09/15/2017 7:47 am CLINICAL HISTORY: Preop chest COMPARISON: CT chest August 16, portable chest July 16 TECHNIQUE: PA and lateral views of the chest were obtained. FINDINGS: The lungs are underinflated. Scattered fibrotic lung changes are present. Posterior right gutter scarring and nodularity not clearly different from the CT chest study. Likewise, 2 areas of no dularity in the right upper lobe also without clear change. No new mass or infiltrate. No failure or volume overload. Heart size is normal and central vasculature is within normal limits. No pleural e ffusion or pneumothorax seen. No acute bony finding noted. No aortic abnormality. IMPRESSION: No acute cardiopulmonary process. Underlying fibrotic change and the lung parenchymal nodularity are not clearly different from July 20.
--- NOTE | 2017-09-15 10:21 | RAD REPORT ---
EXAM DESCRIPTION: RAD - Chest Single View - 09/15/2017 9:57 am CLINICAL HISTORY: Port-A-Cath placement COMPARISON: September 15 TECHNIQUE: AP portable chest image was obtained 0946 hours . FINDINGS: Low lung volumes are present accentuating lung markings. Patient has known nodularity of t he lung parenchyma. Left subclavian Port-A-Cath has been placed. There is no pneumothorax. Tip is at the brachiocephalic SVC junction. No pleural fluid. IMPRESSION: Left subclavian Port-A-Cath placement with no pneumothorax. Tip of the Port-A-Cath is at the SVC brachiocephalic junction.
--- NOTE | 2017-09-15 10:25 | EKG ---
Test Date: 2017-09-15 Test Time: 08:04:10 Damaged Freight Inspector: JREO MEASUREMENT RESULTS: Intervals: Rate: 78 CO: 138 QRSD: 62 QT: 370 QTc: 421 Tichnor: P: 40 CO: 138 QRS: 21 T: 22 INTERPRETIVE STATEMENTS: Normal sinus rhythm Normal ECG Compared to ECG 07/16/2017 04:55:14 no significant change from previous ECG Electronically Signed On 09-15-17 10:25:06 CDT by Bhavesh Page
--- NOTE | 2017-09-15 10:29 | RAD REPORT ---
EXAM DESCRIPTION: RAD - Fluoroscopy <1 Hour - 09/15/2017 9:42 am FINDINGS: Chest fluoroscopy performed. Multiple portable C-arm views were obtained during fluoroscopic assisted placement of a Port-A-Cath. No unexpected findings.
--- NOTE | 2017-09-15 17:31 | OP ---
Date of Procedure: 09/15/2017 Surgeon: Juan Delgado MD Preoperative Diagnosis: Metastatic breast cancer. Postoperative Diagnosis: Metastatic breast cancer. Procedures: 1.Port-A-Cath placement. 2.Interpretation of fluoroscopy. Anesthesia: MAC plus local. Indications: This is the case of a female, who comes to us with a history of metastatic disease and chemotherapy with no good peripheral access, so she was asked to have a Port-A-Cath placed. The bene fits, alternatives, and risks of placement were fully explained to the patient, which include but are not limited to infection, bleeding, damage to adjacent structures, anesthesia complication, DVTs, pu lmonary emboli, pericardiac tamponade, breakage of the catheter, WI, and even . She also unders tands this may not relieve the symptoms. She might need more than one surgical intervention. She un derstands the importance of removing the Port-A-Cath as soon as she finished chemotherapy. She under stands that if she keeps the Port-A-Cath for more than 30 days use, she has to contact the office to arrange for home health agency to flush the catheter monthly. She understood, and once again, if the Port-A-Cath is not in use for chemotherapy, she should have it removed. She signed a consent. The patient also understands the risks of pneumothorax and hemothorax. Description Of Procedure: The patient was brought to the operating room, placed in supine position. Anesthesia was done without complication. Chest and neck and left side was prepped and draped in a sterile fashion. Local anesthesia was applied. The patient was placed in Trendelenburg position. A n 18-gauge needle was placed in the left subclavian vein. Guidewire was passed through, got it into the superior vena cava using fluoroscopy. A pocket was created in the left upper chest. We placed a n introducer over the guidewire under direct visualization with fluoroscopy, removed the guidewire, a nd put a catheter in. Removed the introducer sheath. The catheter was then tunneled underneath the skin to meet the new incision in the left upper chest cut to proper size, connected to the Port-A-Cat h using the sheeter machine operator's specifications. Excellent backflow and inflow. The catheter was flushed with heparinized solution. Once again, fluoroscopy was used to check proper placement, it looked int act. At that moment, I proceeded to secure the Port-A-Cath to the subcutaneous tissue, sutured the P ort-A-Cath to the subcutaneous tissue, and then closed the skin in a subcuticular fashion with 3-0 ch romic and Steri-Strips on top. Sponge count and instrument counts were correct. The patient tolerat ed the procedure well. The patient was sent to Recovery in stable condition. LENO/HOMER Voice ID: [id number] Report ID: [id number]
--- NOTE | 2017-09-15 17:31 | DS ---
Date of Discharge: 09/15/2017 Diagnosis: Metastatic breast cancer. Procedure: Port-A-Cath placement under fluoroscopy. Disposition: Home after the chest x-ray is done and reviewed. Follow up in my office in 1 week. Paula bermeo for appointment [phone]. Keep the area dry for 48 hours, then may shower. Medications: Include Ultracet q.4 hours p.r.n. pain, Bactrim DS p.o. b.i.d. LENO/HOMER Voice ID: [id number] Report ID: [id number]
== END 2017-09-15 11:20 | disposition home or self-care (01) ==
LOC: OR 07:18
PROVIDERS: ATTEND Surgery
PROC: 0JH60WZ Insertion of Totally Implantable Vascular Access Device into Chest Subcutaneous Tissue and Fascia, Open Approach (ICD-10-PCS; principal; 2017-09-15 08:45)
DX: C79.81 Secondary malignant neoplasm of breast (principal); I10 Essential (primary) hypertension; K21.9 Gastro-esophageal reflux disease without esophagitis; Z85.828 Personal history of other malignant neoplasm of skin; Z88.0 Allergy status to penicillin; Z88.3 Allergy status to other anti-infective agents; Z88.6 Allergy status to analgesic agent; Z80.3 Family history of malignant neoplasm of breast; Z83.3 Family history of diabetes mellitus; Z82.49 Family history of ischemic heart disease and other diseases of the circulatory system
CPT/HCPCS: 36415; 36561; 71045; 71046; 80048; 85025; 93005; C1788; J0690; J1644; J3010; 76000; J2250

== ENCOUNTER 2018-03-17 06:16 | Day surgery (SDC) | payer OTHER ==
--- OUTSIDE RECORDS SUMMARY | 2018-03-17 06:23 | XMS REPORT | Clinical Summary ---
:1945 Author Organization [facility] Address [address] [place] [address] Care Team Providers Name Role Phone Jennifer Jennings MD Primary Care Provider Allergies Active Allergy Reactions Severity Noted Date Comments Aspirin 06/30/2016 Ciprofloxacin 06/30/2016 Meperidine 06/30/2016 Egg Derived 06/30/2016 Levofloxacin 06/30/2016 Milk Containing Products 06/30/2016 Morphine 06/30/2016 Penicillins 06/30/2016 Pineapple 06/30/2016 Hydrocodone-Acetaminophen 06/30/2016 Medications Medication Sig Dispensed Refills Start Date End Date Status bisoprolol (ZEBETA) 5 5 mg daily. 0 05/13/2016 Active MG tablet dicyclomine (BENTYL) 20 20 mg daily. 0 06/17/2016 Active mg tablet omeprazole (PriLOSEC) 40 mg daily. 0 05/23/2016 Active 40 MG capsule CREON 24,000-76,000 24,000 units of 0 06/03/2016 Active -120,000 unit lipase 4 (four) capsule,delayed times a day. release(DR/EC) capsule pravastatin (PRAVACHOL) Take 40 mg by 0 Active 40 MG tablet mouth daily. cholecalciferol, Take 1,000 Units 0 Active vitamin D3, (VITAMIN by mouth daily. D3) 1,000 unit tablet linaclotide (LINZESS) Take 145 mcg by 0 Active 145 mcg capsule mouth daily before breakfast. gabapentin (NEURONTIN) TAKE ONE-HALF 21 tablet 1 10/21/2016 Active 600 mg tablet TABLET BY MOUTH 3 TIMES A DAY FOR 14 DAYS Active Problems Problem Noted Date Nodule of right lung 07/21/2016 Family History Medical History Relation Name Comments [...] Assigned at Date Recorded Not on file Job Start Date Occupation Industry Not on file Not on file Not on file Travel History Travel Start Travel End No recent travel history available. Last Filed Vital Signs Not on file Plan of Treatment Health Maintenance Due Date Last Done Comments BREAST CANCER SCREENING 12/21/1993 COLON CANCER SCREENING 12/21/1993 SHINGRIX VACCINE (1 of 2) 12/21/1993 ZOSTER VACCINE 2003 PNEUMOCOCCAL POLYSACCHARIDE VACCINE AGE 65 AND OVER 12/21/2008 PNEUMOCOCCAL-13 12/21/2008 INFLUENZA VACCINE 11/17/2017 Implants Implanted Type Area Pot Reliner Device Shelf Model / Identifier Expiration Serial / Date Lot Kit Selnt Plrl Air Leak 4ml Strl Progel - [id number] Surgical N/A: N/A [employer] [id number] / Implanted: 07/21/2016 (Quantity not on file) Implants; / Expanders; Extenders; Surgical Wires Results Not on fileafter 03/16/2017 Insurance Payer Benefit Plan / Group Subscriber ID Type Phone Address [facility] H[facility] Advance Directives Patient has advance care planning documents on file. For more information, please contact:Devendra Holcomb[address] [place] [address]
--- OUTSIDE RECORDS SUMMARY | 2018-03-17 06:23 | XMS REPORT ---
:1945 Author Organization e[employer] Care Team Providers Name Role Phone Jennifer Jennings Provider Role Unavailable Allergies No Known Allergies Problems Problem Type Condition Code Onset Dates Condition Status Problem Right knee pain, unspecified M25.561 Active chronicity Problem Other specified types of C85.89 Active non-Hodgkin lymphoma, extranodal and solid organ sites Problem Pancreatic insufficiency K86.8 Active Problem Abdominal pain R10.9 Active Problem Gastritis K29.70 Active Problem Hypertension I10 Active Problem Diverticulosis of colon (without K57.30 Active mention of hemorrhage) Problem Hypercholesteremia E78.00 Active Problem Low back pain M54.5 Active Problem IBS (irritable bowel syndrome) K58.9 Active Problem Irritable bowel syndrome with K58.0 Active diarrhea Problem History of gastritis Z87.19 Active Problem Metastatic breast cancer C50.919 Active Problem Irritable bowel syndrome with K58.1 Active constipation Medications No Known Medications Results No Known Results Summary Purpose [facility]
--- OUTSIDE RECORDS SUMMARY | 2018-03-17 06:23 | XMS REPORT ---
:1945 Author Organization eClinicalWorks Care Team Providers Name Role Phone Jennifer Jennings Provider Role Unavailable Allergies, Adverse Reactions, Alerts Substance Reaction Event Type PCN Info Not Available Drug Allergy MORPHINE Info Not Available Drug Allergy Vicodin Info Not Available Drug Allergy Levaquin Info Not Available Drug Allergy [place] Cidol 2000 Info Not Available Drug Allergy Ciprofloxacin Info Not Available Drug Allergy MIU-HEZR-Jrpuzye-Caff-Cod Info Not Available Drug Allergy milk Info Not Available Non Drug Allergy pineapples Info Not Available Non Drug Allergy eggs Info Not Available Non Drug Allergy Problems Problem Type Condition Code Onset Dates [...] Problem IBS (irritable bowel syndrome) K58.9 Active Assessment Depression screening Z13.31 Active Problem Irritable bowel syndrome with K58.0 Active diarrhea Problem History of gastritis Z87.19 Active Assessment Well adult exam Z00.00 Active Problem Metastatic breast cancer C50.919 Active Problem Irritable bowel syndrome with K58.1 Active constipation Medications Medication Code Code Instructions Start End Status Dosage System Date Date Bisoprolol ND 49549410769 5 MG Orally Once Active 1 tablet Fumarate a day Pravastatin ND 72968443927 40 MG Orally Active 1 tablet Sodium Once a day in evening Vitamin D ND 49224777965 1000 UNIT Orally Active 1 tablet Once a day Zantac ND 54766382037 150 MG Orally 2x Active 1 tablet per week at bedtime Linzess ND 25948267269 145 mcg Active not defined Creon ND 62434121876 11040-38026 UNIT Mar 06, Active 1 capsule Orally with 2018 (24,000 meals u--76,000 u--120,000 u) Omeprazole [facility] 67773887241 40 MG Orally Active 1 capsule Once a day Dicyclomine HCl [facility] 10981623151 20 MG Orally as Active 1 tablet directed prn Dicyclomine HCl [facility] 58161399168 20 MG Active TAKE ONE TABLET BY MOUTH UP TO FOUR TIMES A DAY NEEDED FOR STOMACH PAIN Results No Known Results Summary Purpose eClinicalWorks Submission
[2018-03-17] MEDS ORDERED: Ringers Lactate 1,000 ML IV ONE (07:18)
[2018-03-17] MEDS ORDERED: FENTANYL CITR 100 MCG/2 ML ONE (07:29)
[2018-03-17] MEDS ORDERED: PROPOFOL 200 MG/20 ML VIAL IV ONE (07:29)
[2018-03-17] MEDS ORDERED: LIDOCAINE 1% MPF 5 ML VIAL ONE (07:29)
[2018-03-17] MEDS ORDERED: NS 0.9% VIAL 20 ML ONE (07:30)
[2018-03-17] MEDS ORDERED: HEPARIN 5000 UNIT/ML 1 ML VIAL ONE (07:31)
[2018-03-17] MEDS ORDERED: LIDOCAINE 1% MPF 30 ML VIAL ONE (07:31)
[2018-03-17] MEDS ORDERED: CLINDAMYCIN INJ 300 MG in NA CHLORIDE 0.9% 50 ML IV ONE (08:00)
[2018-03-17] MEDS ORDERED: MIDAZOLAM HCL 2 MG/2 ML INJ ONE (08:17)
--- NOTE | 2018-03-17 09:08 | P.BOP ---
Preoperative diagnosis: breast cancer Postoperative diagnosis: same Primary procedure: Removal of portacath Estimated blood loss: <5cc Specimen: intact portacath Findings: atttempted left portacath placement unsucessful. See dictation. Anesthesia: General Complications: None Transferred to: Recovery Room Condition: Good
--- NOTE | 2018-03-17 09:16 | RAD REPORT ---
EXAM DESCRIPTION: RAD - Fluoroscopy <1 Hour - 03/17/2018 9:00 am FINDINGS: A single portable C-arm view was obtained during fluoroscopic assisted attempt at left Por t-A-Cath placement. The single submitted image shows no suspicious or unexpected finding. Fluoro time was 0.1 minutes.
--- NOTE | 2018-03-17 10:12 | RAD REPORT ---
EXAM DESCRIPTION: RAD - Chest Single View - 03/17/2018 9:39 am CLINICAL HISTORY: Unsuccessful Port-A-Cath placement procedure COMPARISON: February 02 TECHNIQUE: AP portable chest image was obtained 0922 hours . FINDINGS: Portable exam obtained following unsuccessful placement of a left subclavian Port-A-Cath. There is no pneumothorax. No acute lung parenchymal process. Interstitial markings are prominent but unchanged from prior imaging. Heart size is prominent but stable. IMPRESSION: No pneumothorax or other acute finding following unsuccessful left side Port-A-Cath plac ement.
--- NOTE | 2018-03-21 23:25 | DS ---
Date of Discharge: 03/17/2018 Procedure: Removal of a Port-A-Cath. Diagnosis: Breast cancer. The patient will have a chest x-ray since there was an attempt to put a left subclavian Port-A-Cath. If chest x-ray is negative for any pneumo then may be discharged home. We are going try to see if we can arrange her for an interventional radiologist to do proper imaging to attempt a Port-A-Cath plac ement once again. LENO/HOMER Voice ID: [id number] Report ID: [id number]
--- NOTE | 2018-03-21 23:41 | OP ---
Date of Procedure: 03/17/2018 Surgeon: Juan Delgado MD Preoperative Diagnoses: Breast cancer, malfunction of Port-A-Cath. Postoperative Diagnoses: Breast cancer, malfunction of Port-A-Cath. Procedure: Removal of a Port-A-Cath. Specimen: Intact Port-A-Cath. Findings: Left Port-A-Cath was attempted on the subclavian vein, but the wire could not pass into th e innominate blood vessels. The patient will need further intervention and evaluation before this wi ll be attempted. The right Port-A-Cath was removed. Anesthesia: General plus local. Indications: This is a case of a 72-year-old patient with metastatic breast cancer, multiple times c hemotherapy, multiple Port-A-Cath and access. The right side Port-A-Cath is not working properly, la st visit. The patient in need for chemotherapy, so they asked me to remove that Port-A-Cath. It is not flushing. The patient has been trying to take care of that the best she can. She is following i nstructions about proper flushing. Even though she does that every few months, the Port-A-Cath once again stopped functioning. We went ahead with removal of Port-A-Cath and placement of a new Port-A-C ath fully explained to the patient, which include but are not limited to infection, bleeding, damage to adjacent structures, anesthesia complication, DVTs, pulmonary emboli, pneumothorax, hemothorax, pe ricarditis, ME, even . She also understands this may not relieve any symptoms, she might need m ore than one surgical intervention. She understood, signed a consent. Description Of Procedure: The patient was brought to the operating room, placed in supine position. Anesthesia was done without complication. The chest area left and right were prepped and draped in a sterile fashion. We went to the left side first. The patient has a previous Port-A-Cath in that a kamala that needed to be removed several months ago. We put an 18-gauge needle in the left subclavian f or the first attempt. Guidewire was guided under fluoroscopy, but it does not go through the innomin ate vessel. We attempted moving the arm in different positions, but still does some pass the innomin ate vessel. The patient has multiple lines on that area, so I do not want to force the Port-A-Cath c oming through, especially when she has one not too long ago removed from this area. So, we will need some further investigation, imaging investigation, possible venogram, or MRI venogram to be able to see if there are any anatomical changes in that region that is not allowing this to work properly. T he right Port-A-Cath needs to be removed. So, we have a new area there in the future. We have to go back there again, so we aborted the left side placement, went to the right side, made an incision in that area, find a Port-A-Cath, removed it, looks intact, no infections seen, but it is not fluctuant properly. So, Port-A-Cath was removed, sent for identification, and it was irrigated and then close d with 3-0 chromic. Pressure was applied for about 15 minute. The patient tolerated the procedure w ell. The patient was sent to recovery in stable condition. DEVONTE Voice ID: [id number] Report ID: [id number]
== END 2018-03-17 10:36 | disposition home or self-care (01) ==
LOC: OR 06:16
PROVIDERS: ATTEND Surgery
PROC: 0JPT0WZ Removal of Totally Implantable Vascular Access Device from Trunk Subcutaneous Tissue and Fascia, Open Approach (ICD-10-PCS; principal; 2018-03-17 07:30)
PROC: 0JH63WZ Insertion of Totally Implantable Vascular Access Device into Chest Subcutaneous Tissue and Fascia, Percutaneous Approach (ICD-10-PCS; 2018-03-17 07:30)
DX: T82.598A Other mechanical complication of other cardiac and vascular devices and implants, initial encounter (principal); C50.919 Malignant neoplasm of unspecified site of unspecified female breast; C78.00 Secondary malignant neoplasm of unspecified lung; I10 Essential (primary) hypertension; K21.9 Gastro-esophageal reflux disease without esophagitis; Z85.828 Personal history of other malignant neoplasm of skin; Z88.0 Allergy status to penicillin; Z88.3 Allergy status to other anti-infective agents; Z88.6 Allergy status to analgesic agent; Z91.012 Allergy to eggs; Z91.011 Allergy to milk products; Z91.018 Allergy to other foods; Z80.3 Family history of malignant neoplasm of breast; Z83.3 Family history of diabetes mellitus; Z82.49 Family history of ischemic heart disease and other diseases of the circulatory system
CPT/HCPCS: 36561; 36590; 71045; 88300; J1644; J2250; J2704; J3010; 76000

== ENCOUNTER 2018-04-13 10:58 | Emergency (ER) | payer OTHER ==
--- OUTSIDE RECORDS SUMMARY | 2018-04-13 11:02 | XMS REPORT ---
[...] Medications Results No Known Results Summary Purpose [facility] Submission
--- OUTSIDE RECORDS SUMMARY | 2018-04-13 11:02 | XMS REPORT | Clinical Summary ---
:1945 Author Organization [facility] Address [address] [place] [address] Care Team Providers Name Role Phone Jennifer [...] CANCER SCREENING 12/21/1993 COLON CANCER SCREENING 12/21/1993 SHINGLES VACCINES (1 of 2) 12/21/1993 PNEUMOCOCCAL POLYSACCHARIDE VACCINE AGE 65 AND OVER 12/21/2008 PNEUMOCOCCAL-13 12/21/2008 INFLUENZA VACCINE 11/17/2017 Implants Implanted Type Area Heel Sander Device Shelf Model / Identifier Expiration Serial / Date Lot Kit Selnt Plrl Air Leak 4ml Strl Progel - [id number] Surgical N/A: N/A [employer] [id number] / Implanted: 07/21/2016 (Quantity not on file) Implants; / Expanders; Extenders; Surgical Wires Results Not on fileafter 04/12/2017 Insurance Payer Benefit Plan / Group Subscriber ID Type Phone Address [employer] [facility] xxxxxxxxx HMO Advance Directives Patient has advance care planning documents on file. For more information, please contact:Devendra Holcomb[address] [place] [address]
--- OUTSIDE RECORDS SUMMARY | 2018-04-13 11:02 | XMS REPORT ---
:1945 Author Organization eClinicalWorks Care Team Providers Name Role Phone Jennifer Jennings Provider Role Unavailable Allergies, Adverse Reactions, Alerts Substance Reaction Event Type PCN Info Not Available Drug Allergy MORPHINE Info Not Available Drug Allergy Vicodin Info Not Available Drug Allergy Levaquin Info Not Available Drug Allergy [place] Cidol 2000 Info Not Available Drug Allergy Ciprofloxacin Info Not Available Drug Allergy NVK-KYCL-Uhjsfgh-Caff-Cod Info Not Available Drug Allergy milk Info [...] Status Dosage System Date Date Bisoprolol ND 45305968872 5 MG Orally Once Active 1 tablet Fumarate a day Pravastatin ND 20012479991 40 MG Orally Active 1 tablet Sodium Once a day in evening Vitamin D ND 27672250888 1000 UNIT Orally Active 1 tablet Once a day Zantac ND 55911487000 150 MG Orally 2x Active 1 tablet per week at bedtime Linzess ND 76830040427 145 mcg Active not defined Creon ND 68101681174 56461-69753 UNIT Mar 06, Active 1 capsule Orally with 2018 (24,000 meals u--76,000 u--120,000 u) Omeprazole [facility] 21902036051 40 MG Orally Active 1 capsule Once a day Dicyclomine HCl [facility] 30535751609 20 MG Orally as Active 1 tablet directed prn Dicyclomine HCl [facility] 24257815584 20 MG Active TAKE ONE TABLET BY MOUTH UP TO FOUR TIMES A DAY NEEDED FOR STOMACH PAIN Results No Known Results Summary Purpose eClinicalWorks Submission
--- NOTE | 2018-04-13 13:08 | ER ---
Nurse's Notes [facility] Name: Deborah Nicole Age: 72 yrs Sex: Female : 1945 Arrival Date: 04/13/2018 Time: 11:02 Bed 30 Private MD: Diagnosis: Acute Allergic Reaction: Contrast Medium- resolved Presentation: 04/13 11:12 Presenting complaint: Patient states: She has a CT with contrast, and after they did aj1 the scan she started to feel really cold and clammy. They called a code yellow and did her blood pressure and blood sugar and they were fine. Reports that she is feeling better now, but she is worried that she had an allergic reaction to the contrast. Denies SOB. Transition of care: patient was not received from another setting of care. Onset of symptoms was April 13, 2018. Risk Assessment: Do you want to hurt yourself or someone else? Patient reports no desire to harm self or others. Initial Sepsis Screen: Does the patient meet any 2 criteria? No. Patient's initial sepsis screen is negative. Does the patient have a suspected source of infection? No. Patient's initial sepsis screen is negative. Care prior to arrival: None. 11:12 Method Of Arrival: Wheelchair aj1 11:12 Acuity: TAMI 3 aj1 Triage Assessment: 11:14 General: Appears in no apparent distress. comfortable, Behavior is calm, cooperative, aj1 appropriate for age. Pain: Denies pain. Neuro: Level of Consciousness is awake, alert, obeys commands, Reports dizziness, that has now resolved. Cardiovascular: Patient's skin is warm and dry. Respiratory: Airway is patent Respiratory effort is even, unlabored, Respiratory pattern is regular, symmetrical. Historical: - Allergies: 11:14 Aspirin; aj1 11:14 Cipro PO; aj1 11:14 Demerol; aj1 11:14 EGG/POULTRY; aj1 11:14 Levaquin; aj1 11:14 Lortab; aj1 11:14 Milk/dairy products; aj1 11:14 Morphine; aj1 11:14 PENICILLINS; aj1 11:14 Pineapple; aj1 11:14 Vicodin; aj1 - PMHx: 11:14 BREAST CA; Hypertension; Pancreatitis; Right lung mass; skin ca; aj1 - Immunization history:: Adult Immunizations up to date. - Social history:: Smoking status: unknown. - Ebola Screening: : No symptoms or risks identified at this time. Screenin:30 Abuse screen: Denies threats or abuse. Nutritional screening: No deficits noted. tl3 Tuberculosis screening: No symptoms or risk factors identified. Fall Risk None identified. Vital Signs: 11:14 BP 149 / 78; Pulse 80; Resp 18; Temp 97.7; Pulse Ox 100% on R/A; Weight 62.14 kg (R); aj1 Height 4 ft. 11 in. (149.86 cm) (R); Pain 0/10; 12:12 BP 144 / 71 LA Supine (auto/reg); Pulse 79; Resp 18; Pulse Ox 99% on R/A; Pain 0/10; jp3 12:14 BP 149 / 86 LA Sitting (auto/reg); Pulse 84; Resp 18; Pulse Ox 99% on R/A; Pain 0/10; jp3 12:16 BP 153 / 88 LA Standing (auto/reg); Pulse 87; Resp 18; Pulse Ox 98% on R/A; Pain 0/10; jp3 13:31 BP 146 / 74; Pulse 81; Resp 18; Pulse Ox 98% on R/A; tl3 11:14 Body Mass Index 27.67 (62.14 kg, 149.86 cm) aj1 12:12 little dizzy jp3 12:14 normal jp3 12:16 felt comfortable; no dizziness jp3 ED Course: 11:02 Patient arrived in ED. mr 11:14 Triage completed. aj1 11:14 Arm band placed on Patient placed in waiting room, Patient notified of wait time. aj1 12:05 Warm blanket given. Pillow given. Pulse ox on. NIBP on. jp3 12:05 Bed in low position. Call light in reach. Side rails up X 1. jp3 12:25 Maikel Lang, DAVID is Primary Nurse. sg 12:40 Lucas ePrez MD is Attending Physician. kdr 12:58 Lucas Perez MD is Referral Physician. kdr 13:30 No provider procedures requiring assistance completed. Patient did not have IV access tl3 during this emergency room visit. Administered Medications: No medications were administered Outcome: 13:07 Discharge ordered by . kdr 13:30 Discharged to home via wheelchair. tl3 13:30 Condition: stable 13:30 Discharge instructions given to patient, family, Instructed on discharge instructions, follow up and referral plans. medication usage, Demonstrated understanding of instructions, follow-up care, medications, Prescriptions given X 1. 13:32 Patient left the ED. tl3 Signatures: lCarisse Bean, RN RN aj1 Maikel Lang RN Lucas Reed MD MD kdr Rivera, Mary mr Lowrey, Tammy, RN RN tl3 Danny Lunsford jp3
--- NOTE | 2018-04-13 13:08 | EDPHYS ---
Physician Documentation [facility] Name: Deborah Nicole Age: 72 yrs Sex: Female : 1945 Arrival Date: 04/13/2018 Time: 11:02 Bed 30 Private MD: ED Physician Lucas Perez HPI: 04/13 13:09 This 72 yrs old Female presents to ER via Wheelchair with complaints of kdr possible acute allergic reaction to contrast medium. 13:10 The patient presents with itching, redness of skin. Onset: The symptoms/episode kdr began/occurred suddenly, just prior to arrival, this morning. Associated signs and symptoms: The patient has no apparent associated signs or symptoms. Pertinent positives:. Possible causes: Contrast dye - for CT. At home the patient or guardian has treated the symptoms with nothing. Severity of symptoms: At their worst the symptoms were moderate severe just prior to arrival, in the emergency department the symptoms have resolved. The patient has not experienced similar symptoms in the past. The patient has been recently seen by a physician: the patient's primary care provider. Soon after the injection of the contrast medium for a chest CT, the patients' right arm became red up to the shoulder. Since then, the s/s have resolved and she currently has no c/o in the ED. Historical: - Allergies: 11:14 Aspirin; aj1 11:14 Cipro PO; aj1 11:14 Demerol; aj1 11:14 EGG/POULTRY; aj1 11:14 Levaquin; aj1 11:14 Lortab; aj1 11:14 Milk/dairy products; aj1 11:14 Morphine; aj1 11:14 PENICILLINS; aj1 11:14 Pineapple; aj1 11:14 Vicodin; aj1 - PMHx: 11:14 BREAST CA; Hypertension; Pancreatitis; Right lung mass; skin ca; aj1 - Immunization history:: Adult Immunizations up to date. - Social history:: Smoking status: unknown. - Ebola Screening: : No symptoms or risks identified at this time. ROS: 13:10 Constitutional: Negative for fever, chills, and weight loss, Eyes: Negative for injury, kdr pain, redness, and discharge, ENT: Negative for injury, pain, and discharge, Neck: Negative for injury, pain, and swelling, Cardiovascular: Negative for chest pain, palpitations, and edema, Respiratory: Negative for shortness of breath, cough, wheezing, and pleuritic chest pain, Abdomen/GI: Negative for abdominal pain, nausea, vomiting, diarrhea, and constipation, Back: Negative for injury and pain, : Negative for injury, bleeding, discharge, and swelling, Neuro: Negative for headache, weakness, numbness, tingling, and seizure activity. Psych: Negative for depression, anxiety, suicide ideation, homicidal ideation, and hallucinations, Allergy/Immunology: Negative for hives, rash, and allergies, Endocrine: Negative for neck swelling, polydipsia, polyuria, polyphagia, and marked weight changes, Hematologic/Lymphatic: Negative for swollen nodes, abnormal bleeding, and unusual bruising. 13:10 MS/extremity: Positive for erythema, warmth, of the left arm, Negative for decreased range of motion, deformity, ecchymosis, paresthesias, puncture, rash. 13:10 Skin: Positive for erythema, of the left arm. Exam: 13:10 Constitutional: This is a well developed, well nourished patient who is awake, alert, kdr and in no acute distress. Head/Face: Normocephalic, atraumatic. Eyes: Pupils equal round and reactive to light, extra-ocular motions intact. Lids and lashes normal. Conjunctiva and sclera are non-icteric and not injected. Cornea within normal limits. Periorbital areas with no swelling, redness, or edema. Neck: Trachea midline, no thyromegaly or masses palpated, and no cervical lymphadenopathy. Supple, full range of motion without nuchal rigidity, or vertebral point tenderness. No Meningismus. Chest/axilla: Normal chest wall appearance and motion. Nontender with no deformity. No lesions are appreciated. Cardiovascular: Regular rate and rhythm with a normal S1 and S2. No gallops, murmurs, or rubs. Normal PMI, no JVD. No pulse deficits. Respiratory: Lungs have equal breath sounds bilaterally, clear to auscultation and percussion. No rales, rhonchi or wheezes noted. No increased work of breathing, no retractions or nasal flaring. Abdomen/GI: Soft, non-tender, with normal bowel sounds. No distension or tympany. No guarding or rebound. No evidence of tenderness throughout. Back: No spinal tenderness. No costovertebral tenderness. Full range of motion. MS/ Extremity: Pulses equal, no cyanosis. Neurovascular intact. Full, normal range of motion. Neuro: Awake and alert, GCS 15, oriented to person, place, time, and situation. Cranial nerves II-XII grossly intact. Motor strength 5/5 in all extremities. Sensory grossly intact. Cerebellar exam normal. Normal gait. Psych: Awake, alert, with orientation to person, place and time. Behavior, mood, and affect are within normal limits. 13:10 Skin: Appearance: ecchymosis, that are mild, that are moderate, of the left arm, Secondary to the multiple IV sticks on the same arm. There are no palpable cords. Vital Signs: 11:14 BP 149 / 78; Pulse 80; Resp 18; Temp 97.7; Pulse Ox 100% on R/A; Weight 62.14 kg (R); aj1 Height 4 ft. 11 in. (149.86 cm) (R); Pain 0/10; 12:12 BP 144 / 71 LA Supine (auto/reg); Pulse 79; Resp 18; Pulse Ox 99% on R/A; Pain 0/10; jp3 12:14 BP 149 / 86 LA Sitting (auto/reg); Pulse 84; Resp 18; Pulse Ox 99% on R/A; Pain 0/10; jp3 12:16 BP 153 / 88 LA Standing (auto/reg); Pulse 87; Resp 18; Pulse Ox 98% on R/A; Pain 0/10; jp3 13:31 BP 146 / 74; Pulse 81; Resp 18; Pulse Ox 98% on R/A; tl3 11:14 Body Mass Index 27.67 (62.14 kg, 149.86 cm) aj1 12:12 little dizzy jp3 12:14 normal jp3 12:16 felt comfortable; no dizziness jp3 MDM: 13:07 Patient medically screened. kdr 13:10 Data reviewed: vital signs, nurses notes. Counseling: I had a detailed discussion with kdr the patient and/or guardian regarding: the historical points, exam findings, and any diagnostic results supporting the discharge/admit diagnosis, the need for outpatient follow up. ED course: Since all of the patient's s/s had resolved, no further w/u was required. The patient was happy with the care provided and the plan for discharge and follow-up. She was advised that any future exposure to IV contrast medium or related elements, could be fatal. 04/13 12:41 Order name: Cardiac monitoring; Complete Time: 12:48 kdr 04/13 12:41 Order name: IV Saline Lock; Complete Time: 12:48 kdr 04/13 12:41 Order name: Labs collected and sent; Complete Time: 12:48 kdr 04/13 12:41 Order name: O2 Per Protocol; Complete Time: 12:48 kdr 04/13 12:41 Order name: O2 Sat Monitoring; Complete Time: 12:49 kdr Administered Medications: No medications were administered Disposition: 04/13/18 13:07 Discharged to Home. Impression: Acute Allergic Reaction: Contrast Medium- resolved. - Condition is Stable. - Discharge Instructions: What You Need to Know About IV Contrast Material, Allergies, [id number]. - Prescriptions for Benadryl 25 mg Oral Capsule - take 1 capsule by ORAL route every 6 hours As needed; 30 tablet. - Medication Reconciliation Form, Thank You Letter form. - Follow up: Lucas Perez MD; When: 2 - 3 days; Reason: If symptoms return, Further diagnostic work-up, Recheck today's complaints, Continuance of care, Re-evaluation by your physician. - Problem is new. - Symptoms are resolved. Signatures: Dispatcher [employer] Clarisse Tejada, RN RN aj1 Lucas Perez MD MD kdr Kayla Hayden RN RN tl3 Corrections: (The following items were deleted from the chart) 13:01 12:42 PROTIME (+INR)+COAG.LAB.BRZ ordered. EDMS EDMS 13:03 12:41 BASIC METABOLIC PANEL+C.LAB.BRZ ordered. EDMS EDMS 13:03 12:41 CBC+H.LAB.BRZ ordered. EDMS EDMS 13:03 12:41 HEPATIC FUNCTION+C.LAB.BRZ ordered. EDMS EDMS 13:03 12:42 MAGNESIUM+C.LAB.BRZ ordered. EDMS EDMS 13:03 12:42 PROBNP+C.LAB.BRZ ordered. EDMS EDMS 13:03 12:42 TROPONIN (EMERG DEPT USE ONLY)+C.LAB.BRZ ordered. EDMS EDMS 13:32 13:07 04/13/2018 13:07 Discharged to Home. Impression: Acute Allergic Reaction: tl3 Contrast Medium- resolved. Condition is Stable. Forms are Medication Reconciliation Form, Thank You Letter, Antibiotic Education, Prescription Opioid Use. Follow up: Dr. Lucas Perez; When: 2 - 3 days; Reason: If symptoms return, Further diagnostic work-up, Recheck today's complaints, Continuance of care, Re-evaluation by your physician. Problem is new. Symptoms are resolved. kdr
== END 2018-04-13 13:32 | disposition home or self-care (01) ==
LOC: ER 10:58
DX: L29.9 Pruritus, unspecified (principal); T50.8X5A Adverse effect of diagnostic agents, initial encounter; Z85.3 Personal history of malignant neoplasm of breast; Z85.828 Personal history of other malignant neoplasm of skin
CPT/HCPCS: 99283

== ENCOUNTER 2019-02-12 11:46 | Emergency (ER) | payer OTHER ==
--- NOTE | 2019-02-12 13:02 | RAD REPORT ---
EXAM DESCRIPTION: RAD - Chest Single View - 02/12/2019 12:35 pm CLINICAL HISTORY: COUGH Chest pain. COMPARISON: Chest Single View dated 03/17/2018; Chest Single View dated 02/02/2018; Chest Pa And Lat (2 Views) dated 02/01/2018; Chest Single View dated 09/15/2017; Thorax Wo Con dated 11/28/2018 FINDINGS: Portable technique limits examination quality. The lungs are underinflated with a vague opacity in the right apex. The heart is mildly enlarged in s ize. Right-sided port catheter tip in the SVC.
[2019-02-12 13:29] LABS: Absolute Lymphocytes (CBC) 0.8 K/uL (0.7-4.9); Basophils % 0.6 % (0-1.3); Hematocrit 32.2 % (36.0-45.0); Lymphocytes % 20.7 % (15.3-44.8); MPV 8.4 fL (7.6-11.3); RBC Red Blood Cell Count 3.62 M/uL (3.86-4.86)
[2019-02-12 13:31] LABS: Potassium 4.2 mmol/L (3.5-5.1)
--- NOTE | 2019-02-12 14:35 | ER ---
Nurse's Notes [facility] Name: Deborah Nicole Age: 73 yrs Sex: Female : 1945 Arrival Date: 02/12/2019 Time: 11:48 Bed 5 Private MD: Jennifer Jennings Diagnosis: Pneumonia Presentation: 02/12 12:02 Presenting complaint: Patient states: "I'm coughing and I keep falling and I feel weak aj1 everywhere and all my bones hurt. I think I have the flu". Transition of care: patient was not received from another setting of care. Onset of symptoms was January 2019. Risk Assessment: Do you want to hurt yourself or someone else? Patient reports no desire to harm self or others. Initial Sepsis Screen: Does the patient meet any 2 criteria? No. Patient's initial sepsis screen is negative. Does the patient have a suspected source of infection? Yes: Productive cough/pneumonia. Care prior to arrival: None. 12:02 Method Of Arrival: Ambulatory aj1 12:02 Acuity: TAMI 3 aj1 Triage Assessment: 12:08 General: Appears in no apparent distress. uncomfortable, Behavior is calm, cooperative, aj1 appropriate for age. Pain: Complains of pain in back, right leg and left leg Pain currently is 8 out of 10 on a pain scale. Neuro: Level of Consciousness is awake, alert, obeys commands. Cardiovascular: Patient's skin is warm and dry. Respiratory: Airway is patent Respiratory effort is even, unlabored, Respiratory pattern is regular, symmetrical. Historical: - Allergies: 12:08 Aspirin; aj1 12:08 Cipro PO; aj1 12:08 Demerol; aj1 12:08 EGG/POULTRY; aj1 12:08 Levaquin; aj1 12:08 Lortab; aj1 12:08 Milk/dairy products; aj1 12:08 Morphine; aj1 12:08 PENICILLINS; aj1 12:08 Pineapple; aj1 12:08 Vicodin; aj1 - Home Meds: 12:08 bisoprolol fumarate 10 mg oral tab once daily [Active]; losartan 50 mg oral tab 1 tab aj1 once daily [Active]; omeprazole 20 mg oral cpDR once daily [Active]; Creon 24,000-76,000 -120,000 unit oral cpDR 3 times per day [Active]; ferrous sulfate 325 mg (65 mg iron) Oral TbEC daily [Active]; pravastatin 40 mg Oral tab 1 tab once daily [Active]; Dexamethasone Oral the night before chemo [Active]; Vitamin D Oral 1000 unit daily [Active]; gabapentin 300 mg oral cap 3 times per day [Active]; bevacizumab intravenous intravenous every [Active]; - PMHx: 12:08 BREAST CA; Hypertension; Irritable bowel syndrome; Pancreatitis; Right lung mass; skin aj1 ca; Current chemo therapy; 12:08 mastectomy-right side; aj1 - Immunization history:: Flu vaccine is not up to date. - Social history:: Smoking status: Patient/guardian denies using tobacco. - Ebola Screening: : Patient denies travel to an Ebola-affected area in the 21 days before illness onset. - Family history:: not pertinent. - Hospitalizations: : No recent hospitalization is reported. Screenin:42 Abuse screen: Denies threats or abuse. Nutritional screening: No deficits noted. ae4 Tuberculosis screening: No symptoms or risk factors identified. Fall Risk No fall in past 12 months (0 pts). Secondary diagnosis (15 points) Weakness . IV access (20 points). Ambulatory Aid- Crutches/Cane/Walker (15 pts). Gait- Weak (10 pts.). Mental Status- Oriented to own ability (0 pts). Assessment: 12:10 General: Appears uncomfortable, Behavior is calm, cooperative, quiet. Pain: Denies ae4 pain. Neuro: Level of Consciousness is awake, alert, obeys commands, Oriented to person, place, time, situation, Appropriate for age. Cardiovascular: Heart tones S1 S2 present Patient's skin is warm and dry. Respiratory: Airway is patent Respiratory effort is even, unlabored, Respiratory pattern is regular, Breath sounds with wheezes bilaterally. GI: No signs and/or symptoms were reported involving the gastrointestinal system. Abdomen is round Bowel sounds present X 4 quads. : No signs and/or symptoms were reported regarding the genitourinary system. EENT: No signs and/or symptoms were reported regarding the EENT system. Derm: Skin is pale. Musculoskeletal: Reports Generalized weakness. 13:19 Reassessment: Patient up to bathroom via wheelchair. ae4 13:38 Reassessment: Patient states she was unable to urinate at this time. ae4 Vital Signs: 12:08 BP 116 / 75; Pulse 88; Resp 20; Temp 99.6; Pulse Ox 97% on R/A; Weight 63.96 kg (R); aj1 Height 4 ft. 11 in. (149.86 cm) (R); Pain 8/10; 13:41 BP 144 / 78; Pulse 79; Resp 16; Pulse Ox 98% on R/A; ae4 14:40 BP 123 / 67; Pulse 77; Resp 16; Pulse Ox 98% ; sv 12:08 Body Mass Index 28.48 (63.96 kg, 149.86 cm) aj1 ED Course: 11:48 Patient arrived in ED. mr 11:49 Jennifer Jennings MD is Private Physician. mr 12:03 Triage completed. aj1 12:08 Arm band placed on Patient placed in an exam room. aj1 12:15 Erick Nevarez MD is Attending Physician. rn 12:28 Clayton Kay RN is Primary Nurse. ae4 12:34 Flu and/or RSV swab sent to lab. Strep swab sent to lab. jb1 12:35 XRAY Chest (1 view) In Process Unspecified. EDMS 12:54 Throat Culture Sent. sv 12:59 Inserted saline lock: 22 gauge in left antecubital area, using aseptic technique. jb1 13:10 Placed in gown. Bed in low position. Call light in reach. Side rails up X 1. Adult w/ ae4 patient. Pulse ox on. NIBP on. Warm blanket given. 13:10 Accessed Port-a-Cath. using accessed w/ # 20 Parker needle, Clean \\T\\ dry. Good blood ae4 return. Flushes easily. 14:34 Jennifer Jennings MD is Referral Physician. rn 15:20 No provider procedures requiring assistance completed. IV discontinued, intact, ae4 bleeding controlled, No redness/swelling at site. Pressure dressing applied, Port-a cath packed with heparin 500 units prior to being discontinued. Administered Medications: 15:08 Drug: Doxycycline 100 mg Route: PO; ae4 15:17 Follow up: Response: Medication administered at discharge. ae4 15:10 Drug: HEParin Flush 500 units Route: IVP; Site: Port-a-cath; ae4 15:18 Follow up: Response: Medication administered at discharge. ae4 Outcome: 14:34 Discharge ordered by . rn 15:20 Discharged to home via wheelchair. ae4 15:20 Condition: stable 15:20 Discharge instructions given to patient, family, Instructed on discharge instructions, follow up and referral plans. medication usage, Demonstrated understanding of instructions, Prescriptions given X 1. 15:22 Patient left the ED. ae4 Signatures: Dispatcher [employer] EDMS Daryl Merida Angela, RN RN aj1 Renu Calvo RN RN sv Rivera, Mary mr Nieto, Roman, MD MD rn Elliott, Andrea, RN RN ae4
--- NOTE | 2019-02-12 14:35 | EDPHYS ---
Physician Documentation [facility] Name: Deborah Nicole Age: 73 yrs Sex: Female : 1945 Arrival Date: 02/12/2019 Time: 11:48 Bed 5 Private MD: Jennifer Jennings ED Physician Erick Nevarez HPI: 02/12 12:40 This 73 yrs old Female presents to ER via Ambulatory with complaints of Cough, rn Confusion. 12:40 The patient or guardian reports cough, that is intermittent, described as moderate, rn with productive sputum, flu symptoms, low-grade fever, myalgias, no appetite. 12:40 Onset: The symptoms/episode began/occurred 2 day(s) ago. Severity of symptoms: At their rn worst the symptoms were mild, in the emergency department the symptoms are unchanged. Modifying factors: The symptoms are alleviated by nothing, the symptoms are aggravated by nothing. The patient has not experienced similar symptoms in the past. The patient has been recently seen by a physician:. Reports productive cough, chills, myalgia, generalized weakness. Reports chemo this past week, + non-bloody diarrhea, no vomiting. Family member with similar symptoms. . Historical: - Allergies: 12:08 Aspirin; aj1 12:08 Cipro PO; aj1 12:08 Demerol; aj1 12:08 EGG/POULTRY; aj1 12:08 Levaquin; aj1 12:08 Lortab; aj1 12:08 Milk/dairy products; aj1 12:08 Morphine; aj1 12:08 PENICILLINS; aj1 12:08 Pineapple; aj1 12:08 Vicodin; aj1 - Home Meds: 12:08 bisoprolol fumarate 10 mg oral tab once daily [Active]; losartan 50 mg oral tab 1 tab aj1 once daily [Active]; omeprazole 20 mg oral cpDR once daily [Active]; Creon 24,000-76,000 -120,000 unit oral cpDR 3 times per day [Active]; ferrous sulfate 325 mg (65 mg iron) Oral TbEC daily [Active]; pravastatin 40 mg Oral tab 1 tab once daily [Active]; Dexamethasone Oral the night before chemo [Active]; Vitamin D Oral 1000 unit daily [Active]; gabapentin 300 mg oral cap 3 times per day [Active]; bevacizumab intravenous intravenous every [Active]; - PMHx: 12:08 BREAST CA; Hypertension; Irritable bowel syndrome; Pancreatitis; Right lung mass; skin aj1 ca; Current chemo therapy; 12:08 mastectomy-right side; aj1 - Immunization history:: Flu vaccine is not up to date. - Social history:: Smoking status: Patient/guardian denies using tobacco. - Ebola Screening: : Patient denies travel to an Ebola-affected area in the 21 days before illness onset. - Family history:: not pertinent. - Hospitalizations: : No recent hospitalization is reported. ROS: 12:40 Constitutional: + fever and chills Eyes: Negative for injury, pain, redness, and business analytics intern, ENT: Negative for injury, pain, and discharge, Neck: Negative for injury, pain, and swelling, Cardiovascular: Negative for chest pain, palpitations, and edema, Respiratory: + cough, negative for sob, neg for hemotpysis Abdomen/GI: Negative for abdominal pain, nausea, vomiting, diarrhea, and constipation MS/Extremity: Negative for injury and deformity, Skin: Negative for injury, rash, and discoloration, Neuro: Negative for headache, numbness, tingling, and seizure. Exam: 12:40 Constitutional: Thin female, no acute distress, appears weak Head/Face: rn Normocephalic, atraumatic. ENT: MMM, no stridor or swelling Cardiovascular: Regular rate and rhythm. No pulse deficits. Respiratory: Mild tachypnea, no wheezing, diminished breath sounds at bases Abdomen/GI: soft, non-tender MS/ Extremity: Pulses equal, no cyanosis. Neurovascular intact. Full, normal range of motion. Equal circumference. Neuro: Awake and alert, GCS 15, oriented to person, place, time, and situation. Cranial nerves II-XII grossly intact. Motor strength 5/5 in all extremities. Sensory grossly intact. Vital Signs: 12:08 BP 116 / 75; Pulse 88; Resp 20; Temp 99.6; Pulse Ox 97% on R/A; Weight 63.96 kg (R); aj1 Height 4 ft. 11 in. (149.86 cm) (R); Pain 8/10; 13:41 BP 144 / 78; Pulse 79; Resp 16; Pulse Ox 98% on R/A; ae4 14:40 BP 123 / 67; Pulse 77; Resp 16; Pulse Ox 98% ; sv 12:08 Body Mass Index 28.48 (63.96 kg, 149.86 cm) aj1 MDM: 12:15 Patient medically screened. rn 14:32 Differential Diagnosis: Bronchitis Influenza Upper Respiratory Infection Viral Syndrome rn Pneumonia. Data reviewed: vital signs, nurses notes, lab test result(s), radiologic studies, plain films, and as a result, I will discharge patient. Test interpretation: by ED physician or midlevel provider: plain radiologic studies, CXR with mild opacification RUL. Counseling: I had a detailed discussion with the patient and/or guardian regarding: the historical points, exam findings, and any diagnostic results supporting the discharge/admit diagnosis, lab results, radiology results, the need for outpatient follow up, to return to the emergency department if symptoms worsen or persist or if there are any questions or concerns that arise at home. Response to treatment: the patient's symptoms have mildly improved after treatment, and as a result, I will discharge patient. Special discussion: I discussed with the patient/guardian in detail that at this point there is no indication for admission to the hospital. It is understood, however, that if the symptoms persist or worsen the patient needs to return immediately for re-evaluation. Based on the history and exam findings, there is no indication for further emergent testing or inpatient evaluation. I discussed with the patient/guardian the need to see the primary care provider for further evaluation of the symptoms. ED course: Pt with possibly early pneumonia RUL, no oxygen requirement, denies sob, complains most of cough. Will dc home with doxycycline for pneumonia given multiple allergies to several abx. . 02/12 12:24 Order name: Blood Culture Adult (2) rn 02/12 12:24 Order name: Procalcitonin; Complete Time: 13:55 rn 02/12 12:24 Order name: CBC with Diff; Complete Time: 13:55 rn 02/12 12:24 Order name: Basic Metabolic Panel; Complete Time: 13:55 rn 02/12 12:24 Order name: Flu; Complete Time: 12:57 rn 02/12 12:24 Order name: Strep; Complete Time: 12:57 rn 02/12 12:24 Order name: IV Start; Complete Time: 13:10 rn 02/12 12:24 Order name: XRAY Chest (1 view); Complete Time: 13:09 rn 02/12 12:49 Order name: Throat Culture EDMS Administered Medications: 15:08 Drug: Doxycycline 100 mg Route: PO; ae4 15:17 Follow up: Response: Medication administered at discharge. ae4 15:10 Drug: HEParin Flush 500 units Route: IVP; Site: Port-a-cath; ae4 15:18 Follow up: Response: Medication administered at discharge. ae4 Disposition: 02/12/19 14:34 Discharged to Home. Impression: Pneumonia. - Condition is Stable. - Discharge Instructions: Community-Acquired Pneumonia, Adult. - Prescriptions for Doxycycline Monohydrate 100 mg Oral Tablet - take 1 tablet by ORAL route every 12 hours for 10 days; 20 tablet. - Medication Reconciliation Form, Thank You Letter, Antibiotic Education, Prescription Opioid Use form. - Follow up: Jennifer Jennings MD; When: 2 - 3 days; Reason: Recheck today's complaints, Re-evaluation by your physician. - Problem is new. - Symptoms have improved. Signatures: Dispatcher [employer] EDClarisse Serna RN RN aj1 Erick Nevarez MD MD rn Elliott, Andrea, RN RN ae4 Corrections: (The following items were deleted from the chart) 15:22 14:34 02/12/2019 14:34 Discharged to Home. Impression: Pneumonia. Condition is Stable. ae4 Forms are Medication Reconciliation Form, Thank You Letter, Antibiotic Education, Prescription Opioid Use. Follow up: Jennifer Jennings; When: 2 - 3 days; Reason: Recheck today's complaints, Re-evaluation by your physician. Problem is new. Symptoms have improved. rn
[2019-02-12] MEDS ORDERED: HEPARIN 500 UNIT/5 ML SYR IV ONE (15:05)
[2019-02-12] MEDS ORDERED: DOXYCYCLINE 100 MG CAP PO ONE (15:06)
[2019-02-12 15:29] VITALS: TEMP 99.6
[2019-02-12 15:30] VITALS: O2SAT 98
[2019-02-12 15:31] VITALS: BP 123/67
== END 2019-02-12 15:22 | disposition home or self-care (01) ==
LOC: ER 11:46
DX: J18.9 Pneumonia, unspecified organism (principal); I10 Essential (primary) hypertension; C50.919 Malignant neoplasm of unspecified site of unspecified female breast; Z88.0 Allergy status to penicillin; Z88.1 Allergy status to other antibiotic agents; Z88.5 Allergy status to narcotic agent; Z88.6 Allergy status to analgesic agent; Z90.11 Acquired absence of right breast and nipple; Z91.011 Allergy to milk products; Z91.012 Allergy to eggs; Z91.018 Allergy to other foods
CPT/HCPCS: 87040 ×2; 87070; 85025; 80048; 36415; 87081; 84145; 87804 ×2; 71045; 96374; 99284; J1642

== ENCOUNTER 2021-10-10 22:49 | Inpatient (IN) | payer OTHER ==
--- OUTSIDE RECORDS SUMMARY | 2021-10-10 22:55 | XMS REPORT | Continuity of Care Document ---
:1945 Author Organization [facility] t Address [address] [place] [address] Care Team Providers Name Role Phone Sarita ROMEO Primary Care Physician Unavailable Sarita Romeo Attending Clinician Unavailable Millgareth Attending Clinician Unavailable RADIOLOGY Attending Clinician Unavailable Radiology Attending Clinician Unavailable Pob, Lab Main Attending Clinician Unavailable Gilles GRAJEDA Attending Clinician Christi HERNANDEZ, L Attending Clinician Unavailable Yair GLOVER Attending Clinician Unavailable Belen GRAJEDA, S Attending Clinician Ene GRAJEDA Attending Clinician JAIRO Attending Clinician Unavailable AMY MOSCOSO Attending Clinician Unavailable Doctor Unassigned, Name Attending Clinician Unavailable Singer MILLARD Attending Clinician Attending Clinician Unavailable Gilbert JOHNSON Admitting Clinician Unavailable ENE Admitting Clinician Unavailable Ene GRAJEDA Admitting Clinician Admitting Clinician Unavailable Payers Payer Name Policy Type Policy Number Effective Date Expiration Date Yair uribe [employer] [id number] 2021 00:00:00 SPRING Problems Condition Condition Condition Status Onset Resolution Last Treating Co mments Source Name Details Category Date Date Treatment Clinician Date Fever in Fever in Disease Active Unive rs adult adult 4-07 ity of 00:00: [place] [address] Medical Branch Febrile Febrile Disease Active Univers neutropeni neutropeni 6-05 it y of a a 00:00: [place] [address] Medical Branch Pain in Pain in Problem Active Common right knee right knee Sp yasmeen - [facility] Other Other Problem Active Common specified specified Spir it types of types of - [facility] non-Hodgki non-Hodgki [facility] n [facility] lymphoma, lymphoma, [facility] extranodal extranodal Ce nter and solid and solid organ organ sites sites Pancreatic Pancreatic Problem Active C ommon insufficie insufficie Sp yasmeen ncy ncy - [facility] Abdominal Abdominal Problem Active Com mon pain pain [facility] Gastritis Gastritis Problem Active Com mon [facility] Hypertensi Hypertensi Problem Active C ommon on on [facility] Diverticul Diverticul Problem Active C ommon osis of osis of [facility] colon colon - [facility] (without (without St mention of mention of [facility] hemorrhage hemorrhage Me dical ) ) Center Hyperchole Hyperchole Problem Active C ommon steremia steremia [facility] Low back Low back Problem Active Commo n pain pain [facility] IBS IBS Problem Active Common (irritable (irritable Sp yasmeen bowel bowel - [facility]I syndrome) syndrome) [facility] Irritable Irritable Problem Active Com mon bowel bowel Spirit syndrome syndrome - [facility] with with St diarrhea [facility] History of History of Problem Active C ommon gastritis gastritis Spir it [facility] Metastatic Metastatic Problem Active C ommon breast breast [facility] cancer cancer - [facility] Irritable Irritable Problem Active Com mon bowel bowel Spirit syndrome syndrome - [facility] with with St constipati constipati Floridalma kes on on Medical Center Local Local Problem Active Common infection infection Spir it due to due to - [facility]-A-Cat Port-A-Cat h, h, [facility] subsequent subsequent Me dical encounter encounter Cent er Hyperlipid Hyperlipid Problem Active C ommon emia, emia, Spirit unspecifie unspecifie - [facility] d d [facility] hyperlipid hyperlipid Floridalma kes emia type emia type [facility] Center Lymphedema Lymphedema Problem Active C ommon of upper of upper Spirit extremity, extremity, - [facility] bilateral bilateral [facility] Pain in Pain in Problem Active Common left knee left knee Spir it [facility] Dysphagia, Dysphagia, Problem Active C ommon unspecifie unspecifie Sp yasmeen d type d type - [facility] Status Status Problem Active Common post fall post fall Spir it - CH[facility] Pneumonia Pneumonia Problem Active Com mon of right of right Spirit upper lobe upper lobe - [facility] due to due to St infectious infectious [facility] organism organism Medica [facility] Mixed Mixed Problem Active Common hyperlipid hyperlipid Sp yasmeen emia emia - [facility] Abnormal Abnormal Problem Active Commo n laboratory laboratory Sp yasmeen test test - [facility] result result [facility] Cough Cough Diagnosis Active Common Spirit - [facility] Allergies, Adverse Reactions, Alerts Allergy Allergy Status Severity Reaction(s) Onset Inactive Treating Comm ents Source Name Type Date Date Clinician PINEAPPL DRUG Active N/V Univers E INGREDI 6-05 ity of 00:00: [place] 00 Medical Branch HYDROCOD DRUG Active Rash Univers ONE-ACET 6-05 ity of AMINOPHE 00:00: [place] N 00 Medical Branch Aspirin Propensi Active Unknown - Univ ers ty to See comments 6-05 ity of adverse 00:00: [place] reaction 00 Medical s Branch Ciproflo Propensi Active Nausea Univer s xacin ty to and/or 6-05 ity of adverse Vomiting 00:00: [place] reaction 00 Medical s Branch Meperidi Propensi Active Unknown - Uni vers ne Hcl ty to See comments 6-05 ity of adverse 00:00: [place] reaction 00 Medical s Branch Egg Propensi Active Nausea Univers ty to and/or 6-05 ity of adverse Vomiting 00:00: [place] reaction 00 Medical s Branch Levoflox Propensi Active Rash Univer s acin ty to 6-05 ity of adverse 00:00: [place] reaction 00 Medical s Branch Morphine Propensi Active Unknown - Uni vers ty to See comments 6-05 ity of adverse 00:00: [place] reaction 00 Medical s Branch Pineappl Propensi Active Nausea Univer s e ty to and/or 6-05 ity of adverse Vomiting 00:00: [place] reaction 00 Medical s Branch Hydrocod Propensi Active Rash Univer s one-Acet ty to 6-05 ity of aminophe adverse 00:00: [place] n reaction 00 Medical s Branch ASPIRIN DRUG Active Unknown-Cmnt Uni vers INGREDI 6-05 ity of 00:00: [place] 00 Medical Branch CIPROFLO DRUG Active N/V Univers XACIN INGREDI 6-05 ity of 00:00: [place] 00 Medical Branch MEPERIDI DRUG Active Unknown-Cmnt Un georgina NE HCL INGREDI 6-05 ity of 00:00: [place] 00 Medical Branch EGG DRUG Active N/V Univers INGREDI 6-05 ity of 00:00: [place] 00 Medical Branch LEVOFLOX DRUG Active Rash Univers ACIN INGREDI 6-05 ity of 00:00: [place] 00 Medical Branch MORPHINE DRUG Active Unknown-Cmnt Un georgina INGREDI 605 ity of 00:00: [place] 00 Medical Branch PENICILL Drug Active Rash Univers INS Class 6-04 ity of 00:00: [place] 00 Medical Branch Milk Propensi Active Nausea Univers ty to and/or 6-04 ity of adverse Vomiting 00:00: [place] reaction 00 Medical s Branch Penicill Propensi Active Rash 0 Univer s ins ty to 6-04 ity of adverse 00:00: [place] reaction 00 Medical s Branch Penicill Propensi Active Rash Univer s ins ty to 6-04 ity of adverse 00:00: [place] reaction 00 Medical s Branch MILK DRUG Active N/V Univers INGREDI 6-04 ity of 00:00: [place] 00 Medical Branch PCN Adverse Active Info Not Common Reaction Available [facility] MORPHINE Adverse Active Info Not Commo n Reaction Available [facility] Levaquin Adverse Active Info Not Commo n Reaction Available [facility] [place] Adverse Active Info Not Common Cidol Reaction Available [address] Ciproflo Adverse Active Info Not Commo n xacin Reaction Available [facility] ASA-APAP Adverse Active Info Not Commo n -Salicyl Reaction Available [facility] rit -Caff-Co [facility] d [facility] milk Adverse Active Info Not Common Reaction Available [facility] pineappl Adverse Active Info Not Commo n es Reaction Available [facility] eggs Adverse Active Info Not Common Reaction Available [facility] Vicodin Adverse Active Info Not Common Reaction Available [facility] Social History Social Habit Start Date Stop Date Quantity Comments Source Exposure to Not sure [facility] SARS-CoV-2 (event) Medica l Branch Sex Ass[birth year] [facility] 00:00:00 00:00:00 Medical Branch Smoking Status Start Date Stop Date Source Unknown if ever smoked [facility] Medications Ordered Filled Start Stop Current Ordering Indication Dosage Frequency Signature Comments Components Source Medication Medication Date Date Medication? Clinician (SIG) Name Name gadoteridol 2021- No [id number] .2mL/kg 0.2 mL/kg, Univers (PROHANCE-1 08-04 Intravenou i ty of 5 mL) 15:00: 14:50 s, ONCE, 1 [place] injection 00 :00 dose, On Medica l 0.2 mL/kg [facility] Branch 08/04/21 at 1000, Routine cefUROXime 2021- Yes [id number] 500mg Take 1 Univers 500 mg 4-10 04-16 tablet by ity of tablet 00:00: 04:59 mouth 2 [place] 00 :00 (two) Medical times [place] daily for 5 days. cefUROXime 2021- Yes [id number] 500mg Take 1 Univers 500 mg 4-10 04-16 tablet by ity of tablet 00:00: 04:59 mouth 2 [place] 00 :00 (two) Medical times [place] daily for 5 days. cefUROXime 2021- No [id number] 500mg Take 1 Univers 500 mg 4-10 04-16 tablet by ity of tablet 00:00: 04:59 mouth 2 [place] 00 :00 (two) Medical times [place] daily for 5 days. cholecalcif 2021-0 Yes [id number] 2000U Take 2 Univers joselin, 4-09 tablets by ity of vitamin D3, 00:00: mouth [place] 25 mcg 00 daily. Medical (1,000 Branch unit) tablet cholecalcif 2021-0 Yes [id number] 2000U Take 2 Univers joselin, 4-09 tablets by ity of vitamin D3, 00:00: mouth [place] 25 mcg 00 daily. Medical (1,000 Branch unit) tablet cholecalcif 2022-0 Yes [id number] 2000U Take 2 Univers joselin, 4-09 tablets by ity of vitamin D3, 00:00: mouth [place] 25 mcg 00 daily. Medical (1,000 Branch unit) tablet cholecalcif 2022-0 Yes [id number] 2000U Take 2 Univers joselin, 4-09 tablets by ity of vitamin D3, 00:00: mouth [place] 25 mcg 00 daily. Medical (1,000 Branch unit) tablet cholecalcif 2022-0 Yes [id number] 2000U Take 2 Univers joselin, 4-09 tablets by ity of vitamin D3, 00:00: mouth [place] 25 mcg 00 daily. Medical (1,000 Branch unit) tablet heparin 2022-0 2022- No 500U 500 Units, Uni vers lock flush -08 04-08 IV Push, ity of (HEPARIN 21:00: 20:07 ONCE, 1 [place] LOCKFLUSH(P 00 :00 dose, On Medi babatunde ORCINE)(PF) Wed07/25/21 Br anch ) 100 at 1600, unit/mL Routine injection 500 Units Omeprazole 202-0 Yes Take by Uni vers 20 mg 4-08 mouth. ity of tablet 15:51: [address] Branch dicyclomine 2021-0 Yes 20mg Take 20 mg Univers 20 mg 4-08 by mouth 4 ity of tablet 15:51: (four) [place] 47 times Medical daily as Branch needed for Abdominal pain. Amylase-Lip 202-0 Yes Take by [employer] georgina ase-Proteas 4-08 mouth 3 ity o f e (CREON) 15:51: (three) [place] 24,000-76,0 47 times Medical 00 -120,000 daily. Branch unit capsule ferrous 2-0 Yes 325mg Take 325 Unive rs sulfate 325 4-08 mg by ity of mg (65 mg 15:51: mouth 2 [place] iron) 47 (two) Medical tablet times Branch daily. Omeprazole 2022-0 Yes Take by Uni vers 20 mg 4-08 mouth. ity of tablet 15:51: [place] [address] Medical Branch dicyclomine 2022-0 Yes 20mg Take 20 mg Univers 20 mg 4-08 by mouth 4 ity of tablet 15:51: (four) [place] 47 times Medical daily as Branch needed for Abdominal pain. Amylase-Lip 2022-0 Yes Take by Un georgina ase-Proteas 4-08 mouth 3 ity o f e (CREON) 15:51: (three) [place] 24,000-76,0 47 times Medical 00 -120,000 daily. Branch unit capsule ferrous 2022-0 Yes 325mg Take 325 Unive rs sulfate 325 4-08 mg by ity of mg (65 mg 15:51: mouth 2 [place] iron) 47 (two) Medical tablet times Branch daily. Omeprazole 2022-0 Yes Take by Uni vers 20 mg 4-08 mouth. ity of tablet 15:51: [place] [address] Medical Branch dicyclomine 2022-0 Yes 20mg Take 20 mg Univers 20 mg 4-08 by mouth 4 ity of tablet 15:51: (four) [place] 47 times Medical daily as Branch needed for Abdominal pain. Amylase-Lip 2-0 Yes Take by Un georgina ase-Proteas 4-08 mouth 3 ity o f e (CREON) 15:51: (three) [place] 24,000-76,0 47 times Medical 00 -120,000 daily. Branch unit capsule ferrous 2022-0 Yes 325mg Take 325 Unive rs sulfate 325 4-08 mg by ity of mg (65 mg 15:51: mouth 2 [place] iron) 47 (two) Medical tablet times Branch daily. Omeprazole 2022-0 Yes Take by Uni vers 20 mg 4-08 mouth. ity of tablet 15:51: [place] [address] Medical Branch dicyclomine 2-0 Yes 20mg Take 20 mg Univers 20 mg 4-08 by mouth 4 ity of tablet 15:51: (four) [place] 47 times Medical daily as Branch needed for Abdominal pain. Amylase-Lip 2022-0 Yes Take by Un georgina ase-Proteas 4-08 mouth 3 ity o f e (CREON) 15:51: (three) [place] 24,000-76,0 47 times Medical 00 -120,000 daily. Branch unit capsule ferrous 2022-0 Yes 325mg Take 325 Unive rs sulfate 325 4-08 mg by ity of mg (65 mg 15:51: mouth 2 [place] iron) 47 (two) Medical tablet times Branch daily. Omeprazole 2022-0 Yes Take by Uni vers 20 mg 4-08 mouth. ity of tablet 15:51: [place] [address] Medical Branch dicyclomine 2022-0 Yes 20mg Take 20 mg Univers 20 mg 4-08 by mouth 4 ity of tablet 15:51: (four) [place] 47 times Medical daily as Branch needed for Abdominal pain. Amylase-Lip Yes Take by Un georgina ase-Proteas 4-08 mouth 3 ity o f e (CREON) 15:51: (three) [place] 24,000-76,0 47 times Medical 00 -120,000 daily. Branch unit capsule ferrous Yes 325mg Take 325 Unive rs sulfate 325 4-08 mg by ity of mg (65 mg 15:51: mouth 2 [place] iron) 47 (two) Medical tablet times Branch daily. cholecalcif Yes 2000U 2,000 Univ ers joselin 4-08 Units, ity of (vitamin 14:15: Oral, [place] D3) tablet 00 DAILY, Medical 2,000 Units First dose Br anch on Wed07/25/21 at 0915, Until Discontinu ed, Routine BISOPROLOL 2021- No 5mg Take 5 mg U nivers FUMARATE 07-25-08 by mouth ity of ORAL 13:43: 00:00 daily. [place] 57 :00 Medical Branch ondansetron 2021- No 4mg Take 4 mg Univers (ZOFRAN 07-25-08 by mouth ity of ODT) 4 mg 13:43: 00:00 every 8 [place] disintegrat 57 :00 (eight) Medic al ing tablet hours as Branc h needed. rosuvastati 2021- No 20mg Take 20 mg Univers n 20 mg 07-25-08 by mouth ity of tablet 13:43: 00:00 at [place] 57 :00 bedtime. Medical Branch losartan 50 0 2021- No 50mg Take 50 mg Univers mg tablet 07-2508 by mouth ity o f 13:43: 00:00 daily. [place] 57 :00 Medical Branch SERTraline 2021- No 25mg Take 25 mg Univers 25 mg 07-25-08 by mouth ity of tablet 13:43: 00:00 daily. [place] 57 :00 Medical Branch enoxaparin Yes [id number] 100mg inject 1 Univers 100 mg/mL 4-08 mL under ity of injection 00:00: the skin [place] 00 every 24 Medical (twenty-fo Branch ur) hours. codeine-gua 2022-0 Yes 5mL Take 5 mL U nivers ifenesin 4-08 by mouth ity of 10-100 mg/5 00:00: every 6 [place] as mL oral 00 (six) Medical solution hours as Branch needed for Cough. Indication s: cough enoxaparin 2022-0 Yes [id number] 100mg inject 1 Univers 100 mg/mL 4-08 mL under ity of injection 00:00: the [place] 00 every 24 Medical (twenty-fo Branch ur) hours. codeine-gua 2022-0 Yes 5mL Take 5 mL U nivers ifenesin 4-08 by mouth ity of 10-100 mg/5 00:00: every 6 [place] as mL oral 00 (six) Medical solution hours as Branch needed for Cough. Indication s: cough enoxaparin 2022-0 Yes [id number] 100mg inject 1 Univers 100 mg/mL 4-08 mL under ity of injection 00:00: the [place] 00 every 24 Medical (twenty-fo Branch ur) hours. codeine-gua 2022-0 Yes 5mL Take 5 mL U nivers ifenesin 4-08 by mouth ity of 10-100 mg/5 00:00: every 6 [place] mL oral 00 (six) Medical solution hours as Branch needed for Cough. Indication s: cough enoxaparin 2022-0 Yes [id number] 100mg inject 1 Univers 100 mg/mL 4-08 mL under ity of injection 00:00: the [place] 00 every 24 Medical (twenty-fo Branch ur) hours. codeine-gua 2022-0 Yes 5mL Take 5 mL U nivers ifenesin 4-08 by mouth ity of 10-100 mg/5 00:00: every 6 [place] mL oral 00 (six) Medical solution hours as Branch needed for Cough. Indication s: cough enoxaparin 2022-0 Yes [id number] 100mg inject 1 Univers 100 mg/mL 4-08 mL under ity of injection 00:00: the [place] 00 every 24 Medical (twenty-fo Branch ur) hours. codeine-gua 2022-0 Yes 5mL Take 5 mL U nivers ifenesin 4-08 by mouth ity of 10-100 mg/5 00:00: every 6 [place] as mL oral 00 (six) Medical solution hours as Branch needed for Cough. Indication s: cough enoxaparin 2021-0 Yes 65mg 65 mg, Unive rs (LOVENOX) 07-24 Subcutaneo ity of injection 21:00: us, Q12H [place] 65 mg 00 ABX, First Medical dose on Branch [facility] 07/24/21 at 1600, Until Discontinu ed, Routine iopamidol 2021-0 2022- No [id number] 75mL 75 mL, Univers (ISOVUE 07-24 04-07 Intravenou ity o f 370-500 mL) 20:04: 20:04 s, ONCE, 1 [place] injection 00 :00 dose, On Medica l 75 mL [facility] 07/24/21 Branch at 1515, Routine guaiFENesin 0 Yes 100mg 100 mg, Un georgina 100 mg/5 mL 07-24 Oral, Q4H, it y of solution 17:00: First dose [place] 100 mg 00 on [facility] Medical 07/24/21 at Branch 1200, Until Discontinu ed, Routine ipratropium 2021-0 Yes 3mL 3 mL, Unive rs -albuteroL 07-24 Inhalation ity of (DUONEB) 17:00: , QID, [place] 0.5 mg-3 00 First dose Medic al mg(2.5 mg on [facility] base)/3 mL 07/24/21 at nebulizer 1200, solution 3 Until mL Discontinu ed, Routine traMADoL 2021-0 Yes 50mg 50 mg, Univers (ULTRAM) 07-24 Oral, ity of tablet 50 15:07: Q4HPRN, [place] mg 58 Starting Medical on [facility] Branch 07/24/21 at 1007, Until Discontinu ed, Routine, Pain (scale 4-6), Pain (scale 7-10) omeprazole 2021-0 Yes 20mg 20 mg, Unive rs (PRILOSEC) 07-24 Oral, ity of capsule 20 14:00: DAILY, [place] mg 00 First dose Medical on [facility] 07/24/21 at 0900, Until Discontinu ed cetirizine 2021-0 Yes 10mg 10 mg, Unive rs (ZYRTEC) 07-24 Oral, ity of tablet 10 14:00: DAILY, [place] mg 00 First dose Medical on [place] Branch 07/24/21 at 0900, Until Discontinu ed, Routine lipase-prot Yes 1{capsu 1 capsule, Univers ease-amylas 07-24 le} Oral, TID ity of e (CREON) 13:00: MEALS, [place] 12,000-38,0 00 First dose Me dical 00 -60,000 on [place] Branch unit 07/24/21 at capsule 1 0800, capsule Until Discontinu ed azithromyci 2021- No 500mg 500 mg, IV Univers n 07-24 Piggyback, ity of (ZITHROMAX) 10:45: 14:11 Q24H ABX, [place] 500 mg in 00 :06 First dose Medi babatunde NaCl 0.9% on [facility] Branch (NS) 250 mL 07/24/21 at VIAL-MATE 0545, IV Until piggyback Discontinu ed, Administer over 60 Minutes, 250 mL
Reas on for Anti-Infec tive: Empiric Therapy for Suspected Infection< br>Empiric Therapy Site: Respirator y
Durat ion of therapy: 7 days ondansetron 0 Yes 4mg 4 mg, Slow Univers (ZOFRAN 07-24 IV Push, ity of (PF)) 07:26: Q6HPRN, [place] injection 4 39 Starting Medi babatunde mg on [facility] Branch 07/24/21 at 0226, Until Discontinu ed, Routine, Nausea and Vomiting (N/V) dicyclomine 0 Yes 20mg 20 mg, Univ ers (BENTYL) 07-24 Oral, ity of tablet 20 07:24: QIDPRN, [place] mg 51 Starting Medical on [place] Branch 07/24/21 at 0224, Until Discontinu ed, Routine, Abdominal pain cefTRIAXone 2021- No 1000mg 1,000 mg, Univers (ROCEPHIN) 07-24 IV ity of 1,000 mg in 05:30: 06:01 Piggyback, [place] NaCl 0.9% 00 :00 ONCE, 1 Medical (NS) 50 mL dose, On Branc h MINI-BAG [place] 07/24/21 at 0030, Administer over 30 Minutes, 50 mL
R robert for Anti-Infec tive: Documented Infection< br>Bryant rose Infection Site: Urine<br&g t;Duration of Therapy: Other (see Comments) acetaminoph 2021- No 1000mg 1,000 mg, Univers en 07-2407 Oral, ity of (TYLENOL) 04:00: 04:28 ONCE, 1 [place] tablet 00 :00 dose, On Medical 1,000 mg Wed07/23/21 Branc h at 2300, Routine NaCl 0.9% 2021- No 1000mL at 999 Uni vers (NS) IV 07-24 mL/hr, ity of infusion 04:00: 18:13 Intravenou [place] 1,000 mL 00 :30 s, Medical CONTINUOUS Branch , Starting on Wed07/23/21 at 2300, Until [place] 07/24/21 at 1313, Routine iopamidol 2021- No [id number] 100mL 100 mL, Univers (ISOVUE 05-31 Intravenou ity o f 370-500 mL) 01:45: 00:23 s, ONCE, 1 [place] injection 00 :00 dose, On Medica l 100 mL Fri Branch 05/30/21 at 1945, Routine albuterol Yes [id number] 2{puff} Inhale 2 Univers 90 2-11 Puffs ity of mcg/actuati 00:00: every 4 [place] as on inhaler 00 (four) Medical hours as Branch needed for Wheezing or Shortness of Breath. bromphenira Yes [id number] 5mL Take 5 mL Univers mine-pseudo 2-11 by mouth 4 it y of ephedrine-D 00:00: (four) [place] M (BROMFED 00 times Medical DM) 2-30-10 daily as Bran ch mg/5 mL needed for syrup Cold symptoms or Cough. albuterol Yes [id number] 2{puff} Inhale 2 Univers 90 2-11 Puffs ity of mcg/actuati 00:00: every 4 [place] as on inhaler 00 (four) Medical hours as Branch needed for Wheezing or Shortness of Breath. albuterol Yes [id number] 2{puff} Inhale 2 Univers 90 2-11 Puffs ity of mcg/actuati 00:00: every 4 [place] as on inhaler 00 (four) Medical hours as Branch needed for Wheezing or Shortness of Breath. albuterol Yes [id number] 2{puff} Inhale 2 Univers 90 2-11 Puffs ity of mcg/actuati 00:00: every 4 [place] as on inhaler 00 (four) Medical hours as Branch needed for Wheezing or Shortness of Breath. albuterol Yes [id number] 2{puff} Inhale 2 Univers 90 2-11 Puffs ity of mcg/actuati 00:00: every 4 [place] as on inhaler 00 (four) Medical hours as Branch needed for Wheezing or Shortness of Breath. albuterol Yes [id number] 2{puff} Inhale 2 Univers 90 2-11 Puffs ity of mcg/actuati 00:00: every 4 [place] on inhaler 00 (four) Medical hours as Branch needed for Wheezing or Shortness of Breath. albuterol Yes [id number] 2{puff} Inhale 2 Univers 90 2-11 Puffs ity of mcg/actuati 00:00: every 4 [place] on inhaler 00 (four) Medical hours as Branch needed for Wheezing or Shortness of Breath. bromphenira Yes [id number] 5mL Take 5 mL Univers mine-pseudo 2-11 by mouth 4 it y of ephedrine-D 00:00: (four) [place] M (BROMFED 00 times Medical DM) 2-30-10 daily as Bran ch mg/5 mL needed for syrup Cold symptoms or Cough. bromphenira 2021- No [id number] 5mL Take 5 mL Univers mine-pseudo 2-11 04-08 by mouth 4 i ty of ephedrine-D 00:00: 00:00 (four) [place] M (BROMFED 00 :00 times Medical DM) 2-30-10 daily as Bran ch mg/5 mL needed for syrup Cold symptoms or Cough. Albuterol Albuterol 2018-04 Yes Charo 2 puffs as Common Sulfate HFA Sulfate HFA 2-02 [place] needed Spirit 00:00: - [facility] 00 [facility] Medrol Medrol 2018-04 2019- No [place] as Common 05-21 [place] directed Spirit 00:00: 00:00 - [facility] 00 :00 [facility] Rosuvastati Rosuvastati 2019-1 Yes Charo 1 tablet Common n Calcium n Calcium 1 [place] Spir it 00:00: - [facility] 00 [facility] Sertraline Sertraline 2019-1 Yes Charo 1 tablet Common HCl HCl 009 [place] [facility] 00:00: - [facility] 00 [facility] Losartan Losartan 2019-0 Yes Charo 1 tablet Common Potassium Potassium 118 [place] Spir it 00:00: - [facility] 00 [facility] fluconazole 2018-0 Yes 200mg Take 1 Uni vers 200 mg 6-10 tablet by ity of tablet 00:00: mouth [place] 00 daily. Medical Branch cetirizine 2018-0 Yes 10mg Take 1 Unive rs 10 mg 6-10 tablet by ity of tablet 00:00: mouth [place] 00 daily. Medical Branch cetirizine 2018-0 Yes 10mg Take 1 Unive rs 10 mg 6-10 tablet by ity of tablet 00:00: mouth [place] 00 daily. Medical Branch cetirizine 2018-0 Yes 10mg Take 1 Unive rs 10 mg 6-10 tablet by ity of tablet 00:00: mouth [place] 00 daily. Medical Branch cetirizine 2018-0 Yes 10mg Take 1 Unive rs 10 mg 6-10 tablet by ity of tablet 00:00: mouth [place] 00 daily. Medical Branch cetirizine 2018-0 Yes 10mg Take 1 Unive rs 10 mg 6-10 tablet by ity of tablet 00:00: mouth [place] 00 daily. Medical Branch cetirizine 2018-0 Yes 10mg Take 1 Unive rs 10 mg 6-10 tablet by ity of tablet 00:00: mouth [place] 00 daily. Medical Branch fluconazole 2018-0 Yes 200mg Take 1 Uni vers 200 mg 6-10 tablet by ity of tablet 00:00: mouth [place] 00 daily. Medical Branch cetirizine 2018-0 Yes 10mg Take 1 Unive rs 10 mg 6-10 tablet by ity of tablet 00:00: mouth [place] 00 daily. Medical Branch fluconazole 2018-0 Yes 200mg Take 1 Uni vers 200 mg 6-10 tablet by ity of tablet 00:00: mouth [place] 00 daily. Medical Branch cetirizine 2018-0 Yes 10mg Take 1 Unive rs 10 mg 6-10 tablet by ity of tablet 00:00: mouth [place] 00 daily. Medical Branch fluconazole 2018-0 Yes 200mg Take 1 Uni vers 200 mg 6-10 tablet by ity of tablet 00:00: mouth [place] 00 daily. Medical Branch cetirizine 2018-0 Yes 10mg Take 1 Unive rs 10 mg 6-10 tablet by ity of tablet 00:00: mouth [place] 00 daily. Medical Branch fluconazole 2018-0 2021- No 200mg Take 1 Un georgina 200 mg 6-10 04-08 tablet by ity of tablet 00:00: 00:00 mouth [place] 00 :00 daily. Medical Branch Omeprazole 2017-0 Yes Take by Uni vers 20 mg 6-09 mouth. ity of tablet 14:07: [place] 03 Medical Branch dicyclomine 2017-0 Yes 20mg Take 20 mg Univers 20 mg 6-09 by mouth 4 ity of tablet 14:07: (four) [place] 03 times Medical daily as Branch needed for Abdominal pain. BISOPROLOL 2017-0 Yes 5mg Take 5 mg Un georgina FUMARATE 6-09 by mouth. ity of ORAL 14:07: [place] 03 Medical Branch Amylase-Lip 2017-0 Yes Take by Un georgina ase-Proteas 6-09 mouth 3 ity o f e (CREON) 14:07: (three) [place] 24,000-76,0 03 times Medical 00 -120,000 daily. Branch unit capsule ondansetron 2017-0 Yes 4mg Take 4 mg U nivers (ZOFRAN 6-09 by mouth ity of ODT) 4 mg 14:07: every 8 [place] disintegrat 03 (eight) Medic al ing tablet hours as Branc h needed. ferrous 2018-0 Yes 325mg Take 325 Unive rs sulfate 325 6-09 mg by ity of mg (65 mg 14:07: mouth 2 [place] iron) 03 (two) Medical tablet times Branch daily. Omeprazole 2018-0 Yes Take by Uni vers 20 mg 6-09 mouth. ity of tablet 14:07: [place] 03 Medical Branch dicyclomine 2018-0 Yes 20mg Take 20 mg Univers 20 mg 6-09 by mouth 4 ity of tablet 14:07: (four) [place] 03 times Medical daily as Branch needed for Abdominal pain. BISOPROLOL 2018-0 Yes 5mg Take 5 mg Un georgina FUMARATE 6-09 by mouth. ity of ORAL 14:07: [address] Branch Amylase-Lip 2018-0 Yes Take by Un georgina ase-Proteas 6-09 mouth 3 ity o f e (CREON) 14:07: (three) [place] 24,000-76,0 03 times Medical 00 -120,000 daily. Branch unit capsule ondansetron 2018-0 Yes 4mg Take 4 mg U nivers (ZOFRAN 6-09 by mouth ity of ODT) 4 mg 14:07: every 8 [place] disintegrat 03 (eight) Medic al ing tablet hours as Branc h needed. ferrous 2018-0 Yes 325mg Take 325 Unive rs sulfate 325 6-09 mg by ity of mg (65 mg 14:07: mouth 2 [place] iron) 03 (two) Medical tablet times Branch daily. Omeprazole 2018-0 Yes Take by Uni vers 20 mg 6-09 mouth. ity of tablet 14:07: [address] dicyclomine 2018-0 Yes 20mg Take 20 mg Univers 20 mg 6-09 by mouth 4 ity of tablet 14:07: (four) [place] 03 times Medical daily as Branch needed for Abdominal pain. BISOPROLOL 2018-0 Yes 5mg Take 5 mg Un georgina FUMARATE 6-09 by mouth. ity of ORAL 14:07: [address] Amylase-Lip 2018-0 Yes Take by Un georgina ase-Proteas 6-09 mouth 3 ity o f e (CREON) 14:07: (three) [place] 24,000-76,0 03 times Medical 00 -120,000 daily. Branch unit capsule ondansetron 2018-0 Yes 4mg Take 4 mg U nivers (ZOFRAN 6-09 by mouth ity of ODT) 4 mg 14:07: every 8 [place] disintegrat 03 (eight) Medic al ing tablet hours as Branc h needed. ferrous 2018-0 Yes 325mg Take 325 Unive rs sulfate 325 6-09 mg by ity of mg (65 mg 14:07: mouth 2 [place] iron) 03 (two) Medical tablet times Branch daily. Omeprazole 2018-0 Yes Take by Uni vers 20 mg 6-09 mouth. ity of tablet 14:07: [address] Branch dicyclomine 2018-0 Yes 20mg Take 20 mg Univers 20 mg 6-09 by mouth 4 ity of tablet 14:07: (four) [place] 03 times Medical daily as Branch needed for Abdominal pain. BISOPROLOL 2018-0 Yes 5mg Take 5 mg Un georgina FUMARATE 6-09 by mouth. ity of ORAL 14:07: [place] 03 Medical Branch Amylase-Lip 2018-0 Yes Take by Un georgina ase-Proteas 6-09 mouth 3 ity o f e (CREON) 14:07: (three) [place] 24,000-76,0 03 times Medical 00 -120,000 daily. Branch unit capsule ondansetron 2018-0 Yes 4mg Take 4 mg U nivers (ZOFRAN 6-09 by mouth ity of ODT) 4 mg 14:07: every 8 [place] disintegrat 03 (eight) Medic al ing tablet hours as Branc h needed. ferrous 2018-0 Yes 325mg Take 325 Unive rs sulfate 325 6-09 mg by ity of mg (65 mg 14:07: mouth 2 [place] iron) 03 (two) Medical tablet times Branch daily. cefUROXime 2018-0 Yes 250mg Take 1 Univ ers 250 mg 6-09 tablet by ity of tablet 00:00: mouth [place] 00 every 12 Medical (twelve) Branch hours. triamcinolo 2018-0 Yes by Dental U nivers ne 09-25 route 4 ity of acetonide 00:00: (four) [place] 0.1 % 00 times Medical dental daily. Branch paste cefUROXime 2018-0 Yes 250mg Take 1 Univ ers 250 mg 6-09 tablet by ity of tablet 00:00: mouth [place] 00 every 12 Medical (twelve) Branch hours. triamcinolo 2018-0 Yes by Dental U nivers ne 09-25 route 4 ity of acetonide 00:00: (four) [place] 0.1 % 00 times Medical dental daily. Branch paste cefUROXime 2018-0 Yes 250mg Take 1 Univ ers 250 mg 6-09 tablet by ity of tablet 00:00: mouth [place] 00 every 12 Medical (twelve) Branch hours. triamcinolo 2018-0 Yes by Dental U nivers ne 09-25 route 4 ity of acetonide 00:00: (four) [place] 0.1 % 00 times Medical dental daily. Branch paste cefUROXime 2018-0 Yes 250mg Take 1 Univ ers 250 mg 6-09 tablet by ity of tablet 00:00: mouth [place] 00 every 12 Medical (twelve) Branch hours. triamcinolo Yes by Dental U nivers ne 09-25 route 4 ity of acetonide 00:00: (four) [place] 0.1 % 00 times Medical dental daily. Branch paste cefUROXime 2021- No 250mg Take 1 Uni vers 250 mg 09-25 tablet by ity of tablet 00:00: 00:00 mouth [place] 00 :00 every 12 Medical (twelve) Branch hours. triamcinolo 2021- No by Dental Univers ne 09-25 route 4 ity of acetonide 00:00: 00:00 (four) [place] 0.1 % 00 :00 times Medical dental daily. Branch paste Pravastatin Pravastatin Yes Charo 1 tablet Common Sodium Sodium [place] in evening Spir [facility] Vitamin D Vitamin D Yes Charo 1 tablet Common [facility] Zantac Zantac Yes Charo 1 tablet Commo n [place] at bedtime [facility] Linzess Linzess Yes Charo not Common [place] defined [facility] Bisoprolol Bisoprolol Yes Charo 1 tablet Common Fumarate Fumarate [facility] Omeprazole Omeprazole Yes Charo 1 capsule Common Jordan [facility] Gabapentin Gabapentin Yes Charo 1 capsule Common [place] as needed Spirit for pain [facility] Creon Creon 2019- No Charo 1 capsule Commo n 07-09 [place] (24,000 Spirit 00:00 u--76,000 - [facility] :00 u--120,000 [facility] Ordered Filled Immunization Date Status Comments [facility] e Immunization Name Name SARS-COV-2 COVID-19 2020-07-14 Completed Unive rsity of MODERNA VACCINE 00:00:00 [facility] SARS-COV-2 COVID-19 2020-07-14 Completed Unive rsity of MODERNA VACCINE 00:00:00 [facility] SARS-COV-2 COVID-19 2020-07-14 Completed Unive rsity of MODERNA VACCINE 00:00:00 [place] Med ical Branch SARS-COV-2 COVID-19 2020-07-14 Completed Unive rsity of MODERNA VACCINE 00:00:00 [place] Med ical Branch SARS-COV-2 COVID-19 2020-07-14 Completed Unive rsity of MODERNA VACCINE 00:00:00 [place] Med ical Branch SARS-COV-2 COVID-19 2020-07-14 Completed Unive rsity of MODERNA VACCINE 00:00:00 [place] Med ical Branch SARS-COV-2 COVID-19 2020-07-14 Completed Unive rsity of MODERNA VACCINE 00:00:00 [place] Med ical Branch SARS-COV-2 COVID-19 2020-07-14 Completed Unive rsity of MODERNA VACCINE 00:00:00 [place] Med ical Branch SARS-COV-2 COVID-19 2020-07-14 Completed Unive rsity of MODERNA VACCINE 00:00:00 [place] [facility] ical Branch SARS-COV-2 COVID-19 2020-06-16 Completed Unive rsity of MODERNA VACCINE 00:00:00 [place] [facility] ical Branch SARS-COV-2 COVID-19 2020-06-16 Completed Unive rsity of MODERNA VACCINE 00:00:00 [place] [facility] ical Branch SARS-COV-2 COVID-19 2020-06-16 Completed Unive rsity of MODERNA VACCINE 00:00:00 [place] [facility] ical Branch SARS-COV-2 COVID-19 2020-06-16 Completed Unive rsity of MODERNA VACCINE 00:00:00 [place] [facility] ical Branch SARS-COV-2 COVID-19 2020-06-16 Completed Unive rsity of MODERNA VACCINE 00:00:00 [place] Med ical Branch SARS-COV-2 COVID-19 2020-06-16 Completed Unive rsity of MODERNA VACCINE 00:00:00 [place] [facility] ical Branch SARS-COV-2 COVID-19 2020-06-16 Completed Unive rsity of MODERNA VACCINE 00:00:00 [place] [facility] ical Branch SARS-COV-2 COVID-19 2020-06-16 Completed Unive rsity of MODERNA VACCINE 00:00:00 [place] [facility] ical Branch SARS-COV-2 COVID-19 2020-06-16 Completed Unive rsity of MODERNA VACCINE 00:00:00 [place] [facility] ical Branch Vital Signs Vital Name Observation Time Observation Value Comments Source Respiratory rate 2021-07-25 20:33:00 18 /min Univ ersity of [facility] Oxygen saturation in 2021-07-25 20:33:00 99 /min University of Arterial blood by [facility] Pulse oximetry Branch Systolic blood 2021-07-25 17:11:00 155 mm[Hg] Univer sity of pressure [facility] Diastolic blood 2021-07-25 17:11:00 77 mm[Hg] Unive rsity of pressure [facility] Heart rate 2021-07-25 17:11:00 94 /min Universi ty of [facility] Body temperature 2021-07-25 17:11:00 36.06 Nasra [facility] ersity of [facility] Body weight 2021-07-25 08:43:00 67.495 kg Universi ty [facility] BMI 2021-07-25 08:43:00 30.05 kg/m2 Universi ty [facility] Body height 2021-07-24 01:01:00 149.9 cm Universi ty [facility] Systolic blood 2021-05-31 02:02:00 127 mm[Hg] Univer sity of pressure [facility] Diastolic blood 2021-05-31 02:02:00 69 mm[Hg] Unive rsity of [facility] Heart rate 2021-05-31 02:02:00 82 /min Universi ty [facility] Respiratory rate 2021-05-31 02:02:00 19 /min Univ ersity of [facility] Oxygen saturation in 2021-05-31 02:02:00 95 /min University of Arterial blood by [facility] Pulse oximetry Branch Body temperature 2021-05-30 19:10:00 36.89 Nasra Univ ersity of [facility] Body weight 2021-05-30 19:10:00 61.689 kg Universi ty [facility] BMI 2021-05-30 19:10:00 27.47 kg/m2 Universi ty [facility] Procedures Procedure Date / Time Performing Clinician Source Performed MR BRAIN W CONTRAST 2021-08-04 14:48:24 Lsysa Tovar [facility] MR BRAIN WO CONTRAST 2021-08-01 20:46:42 Lyssa Tovar [facility] A [facility] BASIC METABOLIC PANEL (NA, 2021-07-25 10:20:00 [facility] K, CL, CO2, GLUCOSE, BUN, Medica l Branch CREATININE, CA) CBC WITH DIFF 2021-07-25 10:20:00 [facility] US DUPLEX VENOUS ARM RIGHT 2021-07-24 20:26:56 Buddy Greene [facility] - BY VASCULAR LAB [facility] CT THORAX W CONTRAST 2021-07-24 20:13:34 Buddy Greene [facility] VITAMIN B12, LEVEL 2021-07-24 14:47:00 Buddy Greene [facility] FOLATE 2021-07-24 14:47:[address] [facility] VITAMIN D, 25-OH 2021-07-24 14:47:00 Jc Buddy [facility] CT HEAD WO CONTRAST 2021-07-24 04:54:48 Dave Glover [facility] BLOOD CULTURE SCREEN 2021-07-24 04:29:00 Dave Glover [facility] BLOOD CULTURE SCREEN 2021-07-24 04:28:00 Dave Glover [facility] URINALYSIS 2021-07-24 03:45:00 Dave Glover [facility] URINE CULTURE 2021-07-24 03:45:00 Dave Glover [facility] XR CHEST 1 VW 2021-07-24 02:44:20 Dave Glover [facility] RAPID INFLUENZA A/B 2021-07-24 02:26:00 Dave Glover [facility] COVID-19 (ID NOW RAPID 2021-07-24 02:26:00 Dave Glover [facility] TESTING) Medical Branch LAB ONLY COVID 2021-07-24 02:26:00 Dave Glover [facility] INTERPRETATION Medical [place] LACTIC ACID WHOLE BLOOD 2021-07-24 02:22:00 Dave Glover [facility] [place] FERRITIN SERUM 2021-07-24 02:21:00 Jc [facility] THYROID STIMULATING 2021-07-24 02:21:00 Buddy Greene [facility] HORMONE Medical Branch COMP. METABOLIC PANEL 2021-07-24 02:21:00 Dave Glover [facility] ([id number]) Medical Branch IRON PANEL 2021-07-24 02:21[facility]00 [facility] DIFF CONSULT 2021-07-24 02:21:00 [facility] INTERPRETATION Medical Branch CBC WITH DIFF 2021-07-24 02:21:00 Dave Glover [facility] NOTICE OF PRIVACY 2021-07-24 00:24:53 Doctor Carolyn, [facility] PRACTICES [place] [facility] CONSENT/REFUSAL FOR 2021-07-24 00:22:50 Doctor [facility]yn [facility] DI[facility] TREATMENT [place] [facility] AUTHORIZATION FOR RELEASE 2021-06-25 06:01:00 Doctor Carolyn, [facility] [place] [facility] CT CHEST PULMONARY 2021-05-31 00:24:49 Singer [facility] [address] ANGIOGRAM Medical Branch TROPONIN I 2021-05-30 21:25:00 Singer [facility] [place] COMP. METABOLIC PANEL 2021-05-30 21:25:00 Milton Rivero [facility] ([id number]) Medical Branch CBC WITH DIFF 2021-05-30 21:25:00 Singer [facility] N-TERMINAL PRO-BNP 2021-05-30 21:25:00 Singer Milton [facility] [place] CONSENT/REFUSAL FOR 2021-05-30 19:04:56 Doctor Carolyn [facility] TREAT[facility] [place] [facility] NOTICE OF BILLING 2021-05-20 14:00:10 Doctor Carolyn [facility] FOR MEDICARE [place] Medical B ranch PATIENTS [facility] PATIENT FINANCIAL 2021-05-20 13:59:30 Doctor Unassigned, [facility] POLICY [place] [facility] NO SHOW OR MISSED 2021-05-20 13:58:51 Doctor Unassigned, [facility] APPOINTMENT POLICY [place] Medical Branc h ACKNOWLEDGEMENT NOTICE OF PRIVACY 2021-05-20 13:58:31 Doctor Unassigned, [facility] [place] [facility] CONSENT/REFUSAL FOR 2021-05-20 13:58:12 [facility] [place] [facility] ASSIGNMENT OF BENEFITS 2021-05-20 13:57:56 Doctor Unassigned, [facility] [place] [facility] Encounters Start End Encounter Admission Attending Care Care Encounter Source Date/Time Date/Time Type Type Clinicians Facility Department ID 2021-09-19 Outpatient Romeo, STLMLC STLMLC [id number] Common 09:52:01 [facility] [address]85 [facility] 2021-08-08 Outpatient Romeo, STLMLC STLMLC [id number] Common 10:44:00 [facility] 2021-07-10 Outpatient STLMLC STLMLC [id number] Common 10:08:00 [facility] 2021-05-30 Outpatient STLMLC STLMLC [id number] Common 10:22:00 [facility] 2021-05-14 Outpatient STLMLC STLMLC [id number] Common 14:16:41 89660 [facility] 2021-05-14 Outpatient STLMLC STLMLC [id number] Common 13:06:40 73600 [facility] 2021-05-14 Outpatient Millender, STLMLC STLMLC [id number] Common 11:19:38 Jennifer 12597 [facility] 2021-05-14 Outpatient Millender, STLMLC STLMLC [id number] Common 10:59:02 Jennifer 97693 [facility] 2021-05-14 Outpatient Millender, STLMLC STLMLC [id number] Common 10:58:45 Jennifer 37123 [facility] 2021-08-04 2021-08-04 Outpatient R RADIOLOGY [facility] [id number] Univers 08:45:15 23:59:00 ity of [facility] 2021-08-04 2021-08-04 Hospital Radiology UNIVERSIT [id number] Univers 08:30:00 23:59:00 Encounter Y HEALTH [id number] ity of [id number] [id number] [facility] [address] [place] 2021-08-04 2021-08-04 Outpatient R RADIOLOGY [facility] [id number] Univers 08:30:00 08:30:00 [id number] ity of [facility] 2021-08-01 2021-08-01 Outpatient R RADIOLOGY [facility] [id number] Univers 12:12:23 23:59:00 ity of [facility] 2021-08-01 2021-08-01 [facility] Radiology [facility] [id number] Univers 12:12:23 23:59:00 Encounter STEVE [id number] ity of [id number] [id number] [facility] [address] [place] 2021-08-01 2021-08-01 Explosive Ordnance Handler Dejan Burkett Lab Main [facility] [id number] Univers 12:15:00 12:30:00 Visit Satya Campoverde [id number] ity of [id number] [id number] Al dical [facility] 353 Branch [facility] 2021-08-01 2021-08-01 Outpatient R RADIOLOGY [facility] [id number] Univers 12:15:00 12:15:00 [id number] ity of [facility] 2021-07-28 2021-07-28 Transition IRISH Barraza [id number] Univers 00:00:00 00:00:00 of Care Nat L LIGHT [id number] i ty [id number] [id number] [facility] 403 Branch 2021-07-23 2021-07-25 Outpatient X BELEN, [facility] ELLIOT [id number] Univers 20:02:00 15:50:00 RICHARDKILI ity of [facility] 2021-07-23 2021-07-25 Emergency Dave Glover S [facility] [id number] [id number] Univers 20:02:00 15:50:00 Hortencia Soriano [id number] ity of [place] [id number] [facility] [id number] [facility] 081 Branch 2021-07-18 2021-07-18 Outpatient KHAITAN, [facility] [id number] [address] [place] 00:00:00 00:00:00 NELSON 623 Method i 2021-07-10 2021-07-10 Outpatient PANT [facility] [id number] [address] [place] 00:00:00 00:00:00 BLANKA, 620 Met bob BOURGEOIS 2021-06-25 2021-06-25 Orders Doctor JOSE [id number] Univers 00:00:00 00:00:00 Only Unassigned, ANTONIETA [id number] ity of [place] [facility] [id number] [place] [address] [id number] [facility] 009 Branch 2021-05-30 2021-05-30 Emergency , [facility] [id number] Univers 13:14:00 20:10:00 Milton WILSON [id number] i ty of [place] [id number] [facility] [id number] [facility] 084 Branch 2021-05-30 2021-05-30 Emergency X , [facility] ERT [id number] Univers 13:14:00 20:10:00 MILTON trivedi of [facility] 2021-05-20 2021-05-20 Hospital Radiology [facility] [id number] Univers 08:02:49 23:59:00 Salazar WILSON [id number] ity of [place] [id number] [facility] [id number] [facility] 801 Branch 2021-05-20 2021-05-20 Hospital Radiology [facility] [id number] Univers 08:00:00 08:01:00 Encounter STEVE [id number] ity kevin RUSS [id number] [facility] [id number] [facility] 801 Branch 2021-05-20 2021-05-20 Outpatient R RADIOLOGY [facility] [id number] Univers 00:00:00 08:01:00 ity of [facility] 2019-03-20 2019-03-20 Outpatient [facility] [id number] Common 16:00:00 16:00:[address] [facility] [address] [facility] 2019-03-05 2019-03-05 Outpatient [facility] [id number] Common 21:11:00 21:11:[address] [facility] [address] [facility] 2019-02-23 2019-02-23 Outpatient [facility] [id number] Common 15:22:00 15:22:[address] [facility] 2019-02-17 2019-02-17 Outpatient [facility] [id number] Common 12:48:00 12:48:[address] [facility] 2019-02-17 2019-02-17 Outpatient [facility] [id number] Common 11:20:00 11:20:[address] [facility] 2019-02-04 2019-02-04 Outpatient [facility] [id number] Common 16:47:00 16:47:[address] [facility] 2019-01-25 2019-01-25 Outpatient [facility] [id number] Common 13:00:00 13:00:[address] [facility] 2018-10-19 2018-10-19 Outpatient [facility] [id number] Common 09:40:00 09:40:[address] [facility] 2018-08-03 2018-08-03 Outpatient [facility] [id number] Common 09:40:00 09:40:[address] [facility] 2018-05-08 2018-05-08 Outpatient [facility] [id number] Common 14:55:00 14:55:[address] [facility] 2018-05-06 2018-05-06 Outpatient [facility] [id number] Common 10:45:00 10:45:[address] [facility] 2018-04-08 2018-04-08 Outpatient [facility] [id number] Common 09:51:00 09:51:00 [facility] 2018-01-31 2018-01-31 Outpatient [facility] [id number] Common 11:29:00 11:29:[address] [facility] 2018-01-18 2018-01-18 Outpatient [facility] [id number] Common 11:00:00 11:00:[address] [facility] Results Test Description Test Time Test Comments Results Result [facility] e Comments DIFF CONSULT MILD ABSOLUTE Universit y of INTERPRETATION 8 MONOCYTOSIS. [facility] dical 19:10:34 NORMOCYTIC, Branch HYPOCHROMIC ANEMIA. PLATELETS ARE UNREMARKABLE. Basic Metabolic Panel (NA, K, CL, CO2, GLUCOSE, BUN, 2021-07 11:24:48 CREATININE, CA) Test Item Value Reference Range Interpretation Comme nts NA (test code = 2429219634) 133 mmol/L 135-145 L K (test code = 9700279183) 3.5 mmol/L 3.5-5.0 CL (test code = 9135853848) 99 mmol/L 98-108 CO2 TOTAL (test code = 0318109355) 31 mmol/L 23-31 AGAP (test code = 0501005108) 2-16 BUN (test code = 0614113722) 10 mg/dL 7-23 GLUCOSE (test code = 7417138317) 97 mg/dL 70-110 CREATININE (test code = 0.64 mg/dL 0.50-1.04 5330012346) CALCIUM (test code = 3947091240) 8.2 mg/dL 8.6-10.6 L eGFR (test code = 8058844040) mL/min/1.73m2 MICA (test code = MICA) Association of Glomerular Filtration Rate (GFR) and Staging of Kidney Disease* + +-------- + ------+| GFR (mL/min/1.73 m2) ?| With Kidney Damage ?| ?Without Kidney Damage+ +-- + +| ?>90 ?| ?Stage one ?| ? Normal ?+ +------- + -------+| ?60-89 ?| ?Stage two ?| ? Decreased GFR ? + +-------- + ------+| ?30-59 ?| ?Stage three ?| ? Stage three ? + +-------- + ------+| ?15-29 ?| ?Stage four ? | ? Stage four ?+ +------- + -------+| ?<15 (or dialysis) ? ?| ?Stage five ? | ? Stage five ?+ +------- + -------+ *Each stage assumes the associated GFR level has been in effect for at least three months. ?Stages 1 to 5, with or without kidney disease, indicate chronic kidney disease. Notes: Determination of stages one and two (with eGFR >59mL/min/1.73 m2) requires estimation of kidney damage for at least three months as defined by structural or functional abnormalities of the kidney, manifested by either:Pathological abnormalities or Markers of kidney damage (including abnormalities in the composition of the blood or urine or abnormalities in imaging tests). Lab Interpretation (test code = Abnormal 56138-6) [facility] with [id number] 10:57:44 Test Item Value Reference Range Interpretation Comments WBC (test code = See_Comment [Automated 0190-2) message] The sy stem which generated this result transmitted reference range : 4.30 - 11.10 10*3/?L. The reference range was not used to interpret this result as normal/abnormal . RBC (test code = See_Comment L [Automated 789-8) message] The sy stem which generated this result transmitted reference range : 3.93 - 5.25 10*6/?L. The reference range was not used to interpret this result as normal/abnormal . HGB (test code = 10.0 g/dL 11.6-15.0 L 718-7) HCT (test code = 32.0 % 35.7-45.2 L 4544-3) MCV (test code = 91.4 fL 80.6-95.5 787-2) MCH (test code = 28.6 pg 25.9-32.8 785-6) MCHC (test code = 31.3 g/dL 31.6-35.1 L 786-4) RDW-SD (test code = 53.1 fL 39.0-49.9 H 36184-7) RDW-CV (test code = 15.9 % 12.0-15.5 H 788-0) PLT (test code = See_Comment [Automated 777-3) message] The sy stem which generated this result transmitted reference range : 166 - 358 10*3/ ?L. The reference r constantin was not used to interpret this result as normal/abnormal . MPV (test code = 9.6 fL 9.5-12.9 73658-0) NRBC/100 WBC (test See_Comment [Automat ed code = 4303115326) message] The system which generated this result transmitted reference range : 0.0 - 10.0 /100 WBCs. The refer ence range was not u sed to interpret th is result as normal/abnormal . NRBC x10^3 (test code <0.01 See_Comment [Auto mated = 7279018751) message] The s ystem which generated this result transmitted reference range : 10*3/?L. The reference range was not used to interpret this result as normal/abnormal . GRAN MAT (NEUT) % 70.7 % (test code = 770-8) IMM GRAN % (test code 0.40 % = 1084577119) LYMPH % (test code = 17.6 % 736-9) MONO % (test code = 9.7 % 5905-5) EOS % (test code = 1.1 % 713-8) BASO % (test code = 0.5 % 706-2) GRAN MAT x10^3(ANC) 6.57 10*3/uL 1.88-7.09 (test code = 4702426803) IMM GRAN x10^3 (test 0.04 10*3/uL 0.00-0.06 code = 8701598257) LYMPH x10^3 (test code 1.64 10*3/uL 1.32-3.29 = 731-0) MONO x10^3 (test code 0.90 10*3/uL 0.33-0.92 = 742-7) EOS x10^3 (test code = 0.10 10*3/uL 0.03-0.39 711-2) BASO x10^3 (test code 0.05 10*3/uL 0.01-0.07 = 704-7) Lab Interpretation Abnormal (test code = 67313-4) [id number] 21:35:24 Test Item Value Reference Range Interpretation Comments VIT D 25OH (test code = 22 ng/mL 25-80 L 08610-3) MICA (test code = MICA) Deficiency: <20 ng/mLInsufficiency: 20-24 ng/mLOptimal: 25-80 ng/mL Lab Interpretation (test Abnormal code = 79510-1) [facility]12, [id number] 21:34:44 Test Item Value Reference Range Interpretation Comments VIT B12 (test code = 316 pg/mL 240-930 7284558282) MICA (test code = MICA) Biotin has been reported to cause a positive bias, interpret results relative to patient's use of biotin. Lab Interpretation (test Normal code = 72930-8) [facility] 21:34:44 Test Item Value Reference Range Interpretation Comments FOLATE SER (test code = 3.7 ng/mL 3.0-20.0 Biot in has been 6300075018) reported to cau se a positive bias, interpret resul ts relative to patient's use o f biotin. Lab Interpretation (test Normal code = 78259-4) [facility] [id number] 15:17:19 Test Item Value Reference Range Interpretation Comments FERRITIN (test code = 992.0 ng/mL 11.0-264.0 H 8877895864) MICA (test code = MICA) Biotin has been reported to cause a negative bias, interpret results relative to patient's use of biotin. Lab Interpretation (test Abnormal code = 26700-7) [facility] [id number] 15:13:22 Test Item Value Reference Range Interpretation Comments TSH (test code = See_Comment [Automated message] 9053028501) The system [employer] generated this result transmitted ref erence range: 0.45 - 4 .70 mIU/L. The refe rence range was not u sed to interpret this result as normal/abnor mal. Lab Interpretation (test Normal code = 95446-0) [facility] CenterIRON [id number] 14:50:52 Test Item Value Reference Range Interpretation Comments IRON (test code = 2838886782) 27 ug/dL 50-160 L TIBC (test code = 7415838548) 220 ug/dL 250-410 L % FE SAT (test code = 6384872236) 12 % 20-50 L Lab Interpretation (test code = Abnormal 00137-0) [facility] MET[facility]OLIC PANEL ([id number])2021-07-24 02:48:08 Test Item Value Reference Range Interpretation Comments NA (test code = 137 mmol/L 135-145 8817659879) K (test code = 3.9 mmol/L 3.5-5.0 0352435689) CL (test code = 101 mmol/L 98-108 0895057650) CO2 TOTAL (test code = 28 mmol/L 23-31 6202683595) AGAP (test code = 2-16 7338318736) BUN (test code = 13 mg/dL 7-23 0391135402) GLUCOSE (test code = 96 mg/dL 70-110 4007518585) CREATININE (test code = 0.66 mg/dL 0.50-1.04 8411408291) TOTAL BILI (test code = 0.5 mg/dL 0.1-1.5 8429089623) CALCIUM (test code = 8.6 mg/dL 8.6-10.6 4282998640) T PROTEIN (test code = 6.4 g/dL 6.3-8.2 4180916187) ALBUMIN (test code = 3.4 g/dL 3.5-5.0 L 1024759042) ALK PHOS (test code = 70 U/L 34-122 9776167857) ALTv (test code = 8 U/L 5-35 1742-6) AST(SGOT) (test code = 27 U/L 13-40 3110067410) eGFR (test code = mL/min/1.73m2 4533949382) MICA (test code = MICA) Association of Glomerular Filtration Rate (GFR) and Staging of Kidney Disease* + --+ --+ ------+| GFR (mL/min/1.73 m2) ?| With Kidney Damage ?| ?Without Kidney Damage+ --------+ --------+ +| ?>90 ?| ?Stage one ?| ? Normal ?+ ---+ ---+ -------+| ?60-89 ?| ?Stage two ?| ? Decreased GFR ? + --+ --+ ------+| ?30-59 ?| ?Stage three ?| ? Stage three ? + --+ --+ ------+| ?15-29 ?| ?Stage four ? | ? Stage four ?+ ---+ ---+ -------+| ?<15 (or dialysis) ? ?| ?Stage five ? | ? Stage five ?+ ---+ ---+ -------+ *Each stage assumes the associated GFR level has been in effect for at least three months. ?Stages 1 to 5, with or without kidney disease, indicate chronic kidney disease. Notes: Determination of stages one and two (with eGFR >59mL/min/1.73 m2) requires estimation of kidney damage for at least three months as defined by structural or functional abnormalities of the kidney, manifested by either:Pathological abnormalities or Markers of kidney damage (including abnormalities in the composition of the blood or urine or abnormalities in imaging tests). Lab Interpretation Abnormal (test code = 11797-0) [facility] acute hospital WITH [id number] 02:34:28 Test Item Value Reference Range Interpretation Comments WBC (test code = See_Comment [Automated 6690-2) message] The sy stem which generated this result transmitted reference range : 4.30 - 11.10 10*3/?L. The reference range was not used to interpret this result as normal/abnormal . RBC (test code = See_Comment L [Automated 789-8) message] The sy stem which generated this result transmitted reference range : 3.93 - 5.25 10*6/?L. The reference range was not used to interpret this result as normal/abnormal . HGB (test code = 10.7 g/dL 11.6-15.0 L 718-7) HCT (test code = 34.1 % 35.7-45.2 L 4544-3) MCV (test code = 91.4 fL 80.6-95.5 787-2) MCH (test code = 28.7 pg 25.9-32.8 785-6) MCHC (test code = 31.4 g/dL 31.6-35.1 L 786-4) RDW-SD (test code = 53.2 fL 39.0-49.9 H 38747-5) RDW-CV (test code = 15.9 % 12.0-15.5 H 788-0) PLT (test code = See_Comment [Automated 777-3) message] The sy stem which generated this result transmitted reference range : 166 - 358 10*3/ ?L. The reference r constantin was not used to interpret this result as normal/abnormal . MPV (test code = 9.8 fL 9.5-12.9 43202-1) NRBC/100 WBC (test See_Comment [Automat ed code = 0110520427) message] The system which generated this result transmitted reference range : 0.0 - 10.0 /100 WBCs. The refer ence range was not u sed to interpret th is result as normal/abnormal . NRBC x10^3 (test code <0.01 See_Comment [Auto mated = 6167867739) message] The s ystem which generated this result transmitted reference range : 10*3/?L. The reference range was not used to interpret this result as normal/abnormal . GRAN MAT (NEUT) % 65.3 % (test code = 770-8) IMM GRAN % (test code 0.30 % = 6959511310) LYMPH % (test code = 22.0 % 736-9) MONO % (test code = 10.6 % 5905-5) EOS % (test code = 1.3 % 713-8) BASO % (test code = 0.5 % 706-2) GRAN MAT x10^3(ANC) 6.27 10*3/uL 1.88-7.09 (test code = 9123777284) IMM GRAN x10^3 (test 0.03 10*3/uL 0.00-0.06 code = 7409533263) LYMPH x10^3 (test code 2.11 10*3/uL 1.32-3.29 = 731-0) MONO x10^3 (test code 1.02 10*3/uL 0.33-0.92 H = 742-7) EOS x10^3 (test code = 0.12 10*3/uL 0.03-0.39 711-2) BASO x10^3 (test code 0.05 10*3/uL 0.01-0.07 = 704-7) Lab Interpretation Abnormal (test code = 34020-4) [facility] CenterL[facility] Acid Whole [id number] 02:32:27 Test Item Value Reference Range Interpretation Comments LACTIC ACID (test code = 1.00 mmol/L 0.50-2.20 5172755624) Lab Interpretation (test code = Normal 25867-6) [facility]. METABOLIC PANEL ([id number])2021-05-30 22:05:45 Test Item Value Reference Range Interpretation Comments NA (test code = 140 mmol/L 135-145 7673948423) K (test code = 3.7 mmol/L 3.5-5.0 0568919706) CL (test code = 108 mmol/L 98-108 7409332647) CO2 TOTAL (test code = 28 mmol/L 23-31 9355106843) AGAP (test code = 2-16 4951605354) BUN (test code = 18 mg/dL 7-23 9534426264) GLUCOSE (test code = 106 mg/dL 70-110 6284041854) CREATININE (test code = 0.63 mg/dL 0.50-1.04 1372183127) TOTAL BILI (test code = 0.5 mg/dL 0.1-1.6 4756144090) CALCIUM (test code = 8.5 mg/dL 8.6-10.6 L 5869900805) T PROTEIN (test code = 5.8 g/dL 6.3-8.2 L 5211802621) ALBUMIN (test code = 3.4 g/dL 3.5-5.0 L 6063896495) ALK PHOS (test code = 68 U/L 34-122 5859399853) ALTv (test code = 16 U/L 5-35 1742-6) AST(SGOT) (test code = 31 U/L 13-40 2530862131) eGFR (test code = mL/min/1.73m2 4025133841) MICA (test code = MICA) Association of Glomerular Filtration Rate (GFR) and Staging of Kidney Disease* + --+ --+ ------+| GFR (mL/min/1.73 m2) ?| With Kidney Damage ?| ?Without Kidney Damage+ --------+ --------+ +| ?>90 ?| ?Stage one ?| ? Normal ?+ ---+ ---+ -------+| ?60-89 ?| ?Stage two ?| ? Decreased GFR ? + --+ --+ ------+| ?30-59 ?| ?Stage three ?| ? Stage three ? + --+ --+ ------+| ?15-29 ?| ?Stage four ? | ? Stage four ?+ ---+ ---+ -------+| ?<15 (or dialysis) ? ?| ?Stage five ? | ? Stage five ?+ ---+ ---+ -------+ *Each stage assumes the associated GFR level has been in effect for at least three months. ?Stages 1 to 5, with or without kidney disease, indicate chronic kidney disease. Notes: Determination of stages one and two (with eGFR >59mL/min/1.73 m2) requires estimation of kidney damage for at least three months as defined by structural or functional abnormalities of the kidney, manifested by either:Pathological abnormalities or Markers of kidney damage (including abnormalities in the composition of the blood or urine or abnormalities in imaging tests). Lab Interpretation Abnormal (test code = 32873-2) [facility] CenterBITA [id number] 22:04:45 Test Item Value Reference Interpretation Comments Range TROPONIN I (test 0.005 ng/mL See_Comment [Automated code = 2975501232) message] The system which generated this result transmitted reference range : <=0.034. The reference range was not used to interpret this result as normal/abnormal . MICA (test code = Reference (Normal) MICA) Range (defined by the 99th percentile reference limit): <= 0.034 ng/mL Note: Cardiac troponin begins to rise 3-4 hours after the onset of ischemia. Repeat in 4-6 hours if the sample was drawn within 3-4 hours of the onset of the symptom and found normal. Diagnosis of myocardial injury is made with acute changes in cTn concentrations with at least one serial sample above the 99th percentile upper reference limit (URL), taken together with the patient's clinical presentation. Biotin has been reported to cause a negative bias, interpret results relative to patient's use of biotin. Lab Interpretation Normal (test code = 87675-8) [facility] CenterN-TERMINAL [id number] 22:01:45 Test Item Value Reference Range Interpretation Comments NT-proBNP (test code 107 pg/mL See_Comment [Autom ated = 1142083190) message] The system which generated this result transmitted reference range : <=450. The reference range was not used to interpret this result as normal/abnormal . MICA (test code = MICA) Biotin has been reported to cause a negative bias, interpret results relative to patient's use of biotin. Lab Interpretation Normal (test code = 95614-6) [facility] acute hospital WITH [id number] 21:36:18 Test Item Value Reference Range Interpretation Comments WBC (test code = See_Comment [Automated 2799-2) message] The sy stem which generated this result transmitted reference range : 4.30 - 11.10 10*3/?L. The reference range was not used to interpret this result as normal/abnormal . RBC (test code = See_Comment L [Automated 813-8) message] The sy stem which generated this result transmitted reference range : 3.93 - 5.25 10*6/?L. The reference range was not used to interpret this result as normal/abnormal . HGB (test code = 10.1 g/dL 11.6-15.0 L 718-7) HCT (test code = 31.6 % 35.7-45.2 L 4544-3) MCV (test code = 90.3 fL 80.6-95.5 787-2) MCH (test code = 28.9 pg 25.9-32.8 785-6) MCHC (test code = 32.0 g/dL 31.6-35.1 786-4) RDW-SD (test code = 52.2 fL 39.0-49.9 H 38172-4) RDW-CV (test code = 16.0 % 12.0-15.5 H 788-0) PLT (test code = See_Comment [Automated 777-3) message] The sy stem which generated this result transmitted reference range : 166 - 358 10*3/ ?L. The reference r constantin was not used to interpret this result as normal/abnormal . MPV (test code = 9.9 fL 9.5-12.9 19978-9) NRBC/100 WBC (test See_Comment [Automat ed code = 9419399148) message] The system which generated this result transmitted reference range : 0.0 - 10.0 /100 WBCs. The refer ence range was not u sed to interpret th is result as normal/abnormal . NRBC x10^3 (test code <0.01 See_Comment [Auto mated = 1689419537) message] The s ystem which generated this result transmitted reference range : 10*3/?L. The reference range was not used to interpret this result as normal/abnormal . GRAN MAT (NEUT) % 59.1 % (test code = 770-8) IMM GRAN % (test code 0.40 % = 4024098282) LYMPH % (test code = 24.7 % 736-9) MONO % (test code = 14.7 % 5905-5) EOS % (test code = 0.7 % 713-8) BASO % (test code = 0.4 % 706-2) GRAN MAT x10^3(ANC) 3.25 10*3/uL 1.88-7.09 (test code = 3650595496) IMM GRAN x10^3 (test <0.03 0.00-0.06 code = 2790753971) LYMPH x10^3 (test code 1.36 10*3/uL 1.32-3.29 = 731-0) MONO x10^3 (test code 0.81 10*3/uL 0.33-0.92 = 742-7) EOS x10^3 (test code = 0.04 10*3/uL 0.03-0.39 711-2) BASO x10^3 (test code <0.03 0.01-0.07 = 704-7) Lab Interpretation Abnormal (test code = 52331-4) [facility]"
[2021-10-10] MEDS ORDERED: ALBUTEROL 2.5 MG/3 ML NEB SOL ONE (23:02)
[2021-10-10] MEDS ORDERED: IPRATROPIUM BROM 0.5MG/2.5ML ONE (23:02)
--- NOTE | 2021-10-11 00:09 | EDPHYS ---
Physician Documentation [facility] Name: Deborah Nicole Age: 75 yrs Sex: Female : 1945 Arrival Date: 10/10/2021 Time: 23:01 Bed 6 Private MD: ED Physician Jimbo Hubbard HPI: 10/10 23:00 This 75 yrs old Female presents to ER via EMS with complaints of AMS, seizures.mh7 23:00 The patient presents with decreased mental status, seizure activity. Onset: The mh7 symptoms/episode began/occurred today. Possible causes: metastatic cancer. Associated signs and symptoms: Pertinent positives: seizure, shortness of breath. Current symptoms: In the emergency department the patient's symptoms have improved, mildly, no seizures. Patient's baseline:. 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 EMS was called due to AMS, seizure activity. She has an out of hospital DNR but family could not find it when EMS came. EMS started an IO line and gave Ativan after witnessing a seizure.. Historical: - Allergies: 23:07 Aspirin; sm5 23:07 Cipro PO; sm5 23:07 Demerol; sm5 23:07 EGG/POULTRY; sm5 23:07 Levaquin; sm5 23:07 Lortab; sm5 23:07 Milk/dairy products; sm5 23:07 Morphine; sm5 23:07 PENICILLINS; sm5 23:07 Pineapple; sm5 23:07 Vicodin; sm5 - PMHx: 23:07 BREAST CA; Current chemo therapy; Hypertension; Irritable bowel syndrome; sm5 mastectomy-right side; Pancreatitis; Right lung mass; skin ca; - Immunization history:: Adult Immunizations unknown. - Social history:: Smoking status: unknown. ROS: 23:00 Unable to obtain ROS due to altered mental status. mh7 Exam: 23:00 Head/Face: Normocephalic, atraumatic. Eyes: Pupils equal round and reactive to light, mh7 extra-ocular motions intact. Lids and lashes normal. Conjunctiva and sclera are non-icteric and not injected. Cornea within normal limits. Periorbital areas with no swelling, redness, or edema. Neck: Trachea midline, no thyromegaly or masses palpated, and no cervical lymphadenopathy. Supple, full range of motion without nuchal rigidity, or vertebral point tenderness. No Meningismus. Chest/axilla: Normal chest wall appearance and motion. Nontender with no deformity. No lesions are appreciated. 23:00 Abdomen/GI: Soft, non-tender, with normal bowel sounds. No distension or tympany. No guarding or rebound. No evidence of tenderness throughout. Back: No spinal tenderness. No costovertebral tenderness. Full range of motion. Skin: Warm, dry with normal turgor. Normal color with no rashes, no lesions, and no evidence of cellulitis. MS/ Extremity: Pulses equal, no cyanosis. Neurovascular intact. Full, normal range of motion. 23:00 Constitutional: The patient appears in obvious distress, moderately distressed, obviously ill. 23:00 Cardiovascular: Rate: tachycardic, Rhythm: regular, Pulses: no pulse deficits are appreciated, Heart sounds: normal, normal S1and S2, Edema: is not appreciated, JVD: is not appreciated. 23:00 Respiratory: moderate respiratory distress is noted, Respirations: prolonged exhalation, that is moderate, tachypnea, that is moderate, Breath sounds: rhonchi, that are moderate, are heard diffusely, Respiratory rate: 50 23:00 Neuro: Orientation: unable to test, AMS, Mentation: unable to test, AMS, Memory: unable to test, AMS, Cranial nerves: unable to test, AMS, Cerebellar function: unable to test, AMS, Motor: moves all fours, Sensation: no obvious gross deficits, Gait: not tested. seizure activity, is not displayed by the patient, Abnormal movements: there are no abnormal movements. Vital Signs: 23:06 BP 146 / 64; Pulse 170; Resp 36; Pulse Ox 93% on BiPAP; Weight 60 kg; sm5 23:57 BP 102 / 65; Pulse 131; Resp 50; Pulse Ox 84% on NC; sm5 10/11 02:54 BP 107 / 61; Pulse 110; Resp 17; Pulse Ox 89% on NC; sm5 MDM: 00:06 Differential Diagnosis: CVA, electrolyte abnormality, intracranial bleed, seizure, mh7 sepsis. Data reviewed: vital signs, nurses notes, EMS record. Data interpreted:. ED course: Patient in ER wants to continue DNR and only wants comfort measures for patient.. 00:09 Patient medically screened. [facility] 10/11 00:23 Order name: COVID-19 SARS RT PCR (Document "Date of Onset" if Symptomatic) bb Administered Medications: No medications were administered Disposition Summary: 10/11/21 00:09 Hospitalization Ordered Hospitalization Status: Inpatient Admission [facility] Provider: Jt Nevarez Location: Telemetry/MedSurg (Inpatient) [facility] Condition: Guarded [facility] Problem: an ongoing problem [facility] Symptoms: have improved [facility] Bed/Room Type: Standard [facility] Room Assignment: 204(10/11/21 01:49) cg Diagnosis - Altered mental status, unspecified [facility] - Other seizures [facility] - Acute respiratory failure [facility] - Metastatic Breast Cancer [facility] Forms: - Medication Reconciliation Form [facility] - SBAR form [facility] Signatures: Dispatcher [employer] Karli Sesay RN RN Jimbo Yusuf MD MD 7 Tatiana Oliver RN RN sm5 Corrections: (The following items were deleted from the chart) 01:49 00:09 [facility] cg
--- NOTE | 2021-10-11 00:09 | ER ---
Nurse's Notes [facility] Name: Deborah Nicole Age: 75 yrs Sex: Female : 1945 Arrival Date: 10/10/2021 Time: 23:01 Bed 6 Private MD: Diagnosis: Altered mental status, unspecified;Other seizures;Acute respiratory failure;Metastatic Breast Cancer Presentation: 10/10 23:06 Chief complaint: EMS states: pt on hospice for metastatic breast ca, family called ems sm5 stating pt has been "in a daze" all day, seizure activity at home, shortness of breath. Coronavirus screen: At this time, the client does not indicate any symptoms associated with coronavirus-19. Ebola Screen: No symptoms or risks identified at this time. Initial Sepsis Screen: Does the patient meet any 2 criteria? RR > 20 per min. HR > 90 bpm. Yes Does the patient have a suspected source of infection? No. Patient's initial sepsis screen is negative. Risk Assessment: Do you want to hurt yourself or someone else? Unable to obtain. Onset of symptoms was October 10, 2021. 23:06 Method Of Arrival: EMS: [place] [id number] 23:06 Acuity: TAMI 1 5 Triage Assessment: 23:08 General: Appears ill, Behavior is unresponsive. Pain: Unable to use pain scale. Patient sm5 is unresponsive. Neuro: Level of Consciousness is obtunded. Cardiovascular:. Respiratory: Airway is patent Trachea midline Respiratory effort is labored. Derm: Skin is diaphoretic. Historical: - Allergies: 23:07 Aspirin; sm5 23:07 Cipro PO; sm5 23:07 Demerol; sm5 23:07 EGG/POULTRY; sm5 23:07 Levaquin; sm5 23:07 Lortab; sm5 23:07 Milk/dairy products; sm5 23:07 Morphine; sm5 23:07 PENICILLINS; sm5 23:07 Pineapple; sm5 23:07 Vicodin; sm5 - PMHx: 23:07 BREAST CA; Current chemo therapy; Hypertension; Irritable bowel syndrome; sm5 mastectomy-right side; Pancreatitis; Right lung mass; skin ca; - Immunization history:: Adult Immunizations unknown. - Social history:: Smoking status: unknown. Screenin:10 Abuse screen: unable to obtain. Nutritional screening: No deficits noted. Tuberculosis 5 screening: No symptoms or risk factors identified. Fall Risk None identified. Assessment: 23:15 Reassessment: see triage assessment. 5 10/11 00:20 Reassessment: No changes from previously documented assessment. Patient and/or family [facility] updated on plan of care and expected duration. Pain level reassessed. 01:40 Reassessment: No changes from previously documented assessment. [facility] 02:53 Reassessment: No changes from previously documented assessment. 5 Vital Signs: 10/10 23:06 BP 146 / 64; Pulse 170; Resp 36; Pulse Ox 93% on BiPAP; Weight 60 kg; sm5 23:57 BP 102 / 65; Pulse 131; Resp 50; Pulse Ox 84% on NC; sm5 10/11 02:54 BP 107 / 61; Pulse 110; Resp 17; Pulse Ox 89% on NC; 5 ED Course: 10/10 23:01 Patient arrived in ED. 23:04 Jimbo Hubbard MD is Attending Physician. [facility] 23:05 Tatiana Oliver, DAVID is Primary Nurse. [facility] 23:07 Triage completed. 5 23:10 Patient has correct armband on for positive identification. Placed in gown. Bed in low sm5 position. Side rails up X2. Client placed on continuous cardiac and pulse oximetry monitoring. NIBP monitoring applied. 10/11 00:08 Jt Nevarez MD is Hospitalizing Provider. [facility] 00:59 COVID-19 SARS RT PCR (Document "Date of Onset" if Symptomatic) Sent. 5 02:53 No provider procedures requiring assistance completed. Accessed [facility]. using [facility] ,sterile technique, Clean \\T\\ dry. Dressing intact. Good blood return. Flushes easily. 02:54 Arm band placed on right wrist. 5 02:54 Patient admitted, IV remains in place. 5 Administered Medications: No medications were administered Medication: 02:54 VIS not applicable for this client. 5 Outcome: 00:09 Decision to Hospitalize by Provider. [facility] 02:54 Admitted to Med/surg accompanied by nurse, via stretcher, with oxygen, with chart, 5 Report called to [place] 02:54 Condition: unchanged 02:54 Instructed on the need for admit. 02:55 Patient left the ED. 5 Signatures: Jimbo Hubbard MD MD [id number] Vanesa Calderón Sarah, DAVID RN sm5
--- NOTE | 2021-10-11 00:53 | P.HP ---
Certification for Inpatient Patient admitted to: Inpatient With expected LOS: >2 Midnights Patient will require the following post-hospital care: Hospice Practitioner: I am a practitioner with admitting privileges, knowledge of patient current condition, hospital course, and medical plan of care. Services: Services provided to patient in accordance with Admission requirements found in Title 42 Section 412.3 of the Code of Federal Regulations <Edwin Bella - Last Filed: 10/11/21 00:49> Patient History Date of Service: 10/11/21 Reason for admission: Seizure History of Present Illness: 75-year-old female with history of breast cancer metastasis to brain, lungs who has been on hospice for the last 2 weeks at home had a seizure witnessed by her family this evening, during the seizure they called 911 and revoked hospice to have her evaluated in the emergency department. Patient was given IV Versed/Ativan by EMS, her seizure-like activity stopped. She was evaluated by the emergency department physician had a discussion with the family who stated that did not wish for any further investigation/evaluation or treatment they prefer that she be placed back onto hospice. Out of hospital DNR was signed in the emergency department. ED provider wishes to admit to have patient placed back on hospice, possibly inpatient hospice. Patient at this time is unresponsive, diaphoretic, hypoxic. - Past Medical/Surgical History -: Breast cancer -: Hypertension -: IBS -: pancreatitis -: skin CA -: right lung mass -: 2nd he -: skin cancer -: cholecystectomy -: biopsy of right lung Psychosocial/ Personal History: Patient currently on hospice with a noted recently revoked - Family History Family History: Reviewed- Non-Contributory - Social History Alcohol use: No CD- Drugs: No Place of Residence: Home <Edwin Bella - Last Filed: 10/11/21 00:49> Date of Service: 10/11/21 <Jt Nevarez - Last Filed: 10/11/21 16:23> Allergies morphine Allergy (Intermediate, Verified 03/16/18 14:05) Hives/Rash levofloxacin [From Levaquin] Allergy (Verified 03/16/18 14:05) Hives/Rash meperidine HCl [From Demerol] Allergy (Verified 03/16/18 14:05) Hives/Rash Penicillins Allergy (Verified 03/16/18 14:05) Itching/Hives/Rash pineapple Allergy (Verified 03/16/18 14:05) TONGUE SWELLING aspirin Allergy (Intermediate, Uncoded 03/16/18 14:05) Hives EGGS Allergy (Uncoded 03/16/18 14:05) Rash Home Medications: Cholecalciferol (Vitamin D3) [Vitamin D3] 1,000 units PO DAILY 07/16/17 Enoxaparin Sodium [Lovenox 100 MG INJ] 100 mg SQ DAILY 10/11/21 Losartan Potassium [Cozaar] 50 mg PO DAILY 10/11/21 Rosuvastatin Calcium [Crestor] 20 mg PO DAILY 10/11/21 Sertraline [Zoloft*] 25 mg PO DAILY 10/11/21 bisoproloL fumarate [Zebeta*] 10 mg PO DAILY 10/11/21 Review of Systems is unable to be obtained <Edwin Bella - Last Filed: 10/11/21 00:49> Physical Examination - Physical Exam General: Unresponsive HEENT: Atraumatic, Mucous membr. moist/pink Neck: Without JVD or thyroid abnormality Respiratory: Diminished Cardiovascular: No edema, Regular rate/rhythm (Sinus tachycardia) Capillary refill: <2 Seconds Gastrointestinal: Normal bowel sounds, No tenderness Musculoskeletal: No contractures Integumentary: No tenderness/swelling, No erythema Neurological: Other (Unresponsive) <Edwin Bella - Last Filed: 10/11/21 00:49> Assessment and Plan - Plan Assessment: New onset seizure Stage IV breast cancer with metastasis to brain, lungs, liver Plan: New onset seizure Stage IV breast cancer with metastasis to brain, lungs, liver Patient was previously on hospice with [facility] hospice service, she had a seizure last night for this reason hospice was revoked. At this time patient family wishes to continue back with hospice services, possibly inpatient. behavioral services tech consult in place to help arrange for inpatient versus outpatient hospice. Patient with no further seizure activity at this time will provide medication as needed for seizures, pain/anxiety. Appreciate further assistance of psychologist social. Code status: DNR Discharge Plan: Other (Inpatient versus outpatient hospice) Plan to discharge in: 48 Hours - Advance Directives Does patient have a Living Will: No Does patient have a Durable POA for Healthcare: No - Code Status/Comfort Care Code Status Assessed: Yes (DNR) Critical Care: No Time Spent Managing Pts Care (In Minutes): 50 <Edwin Bella - Last Filed: 10/11/21 00:49> - Plan Patient seen and examined on rounds this morning. Daughter at bedside. Patient somnolent, minimally arousable, grunting Family have decided to resume hospice hospice team consulted. patient to transition to inpatient hospice. symptoms secondary to progression of metastatic disease <Jt Nevarez - Last Filed: 10/11/21 16:23>
[2021-10-11] MEDS ORDERED: ONDANSETRON 4 MG/2 ML VIAL IV PRN (01:24)
[2021-10-11] MEDS ORDERED: LORazepam 2 MG/ML VIAL IV PRN (01:24)
[2021-10-11] MEDS ORDERED: HYDROMORPHONE HCL 0.5 MG/0.5 ML INJ ONE (02:48)
[2021-10-11] MEDS: HYDROMORPHONE HCL 0.5 MG/0.5 ML INJ IV PRN ×2 (02:49→14:01)
[2021-10-11 03:26] VITALS: BMI 28.6
[2021-10-11 08:23] VITALS: BP 85/53; TEMP 98.2
[2021-10-11 11:49] VITALS: O2SAT 92
== END 2021-10-11 15:14 | disposition hospice, inpatient (51) | DRG 101 ==
LOC: ER 22:49 → ERHOLD 10-11 00:50 → 2ND 10-11 02:50
PROVIDERS: ADMIT Hospitalist; ATTEND Hospitalist
DX: R56.9 Unspecified convulsions (principal); C78.00 Secondary malignant neoplasm of unspecified lung; C78.7 Secondary malignant neoplasm of liver and intrahepatic bile duct; C79.31 Secondary malignant neoplasm of brain; C50.919 Malignant neoplasm of unspecified site of unspecified female breast; I10 Essential (primary) hypertension; Z88.0 Allergy status to penicillin; Z88.6 Allergy status to analgesic agent; Z91.012 Allergy to eggs; Z20.822 Contact with and (suspected) exposure to COVID-19; Z66 Do not resuscitate
CPT/HCPCS: 99291; J1170; U0003

== ENCOUNTER 2021-10-11 15:15 | Inpatient (IN) | payer OTHER ==
--- OUTSIDE RECORDS SUMMARY | 2021-10-11 15:34 | XMS REPORT | Continuity of Care Document ---
:1945 Author Organization [facility] t Address [facility] Francisco Hua [address] [place] [address] Care Team Providers Name Role Phone Sarita ROMEO Primary Care Physician Unavailable Sarita Romeo Attending Clinician Unavailable Michaela Attending Clinician Unavailable RADIOLOGY Attending Clinician Unavailable [...] Number Effective Date Expiration Date Yair uribe X5 Group [id number] 2021 00:00:00 SPRING Problems Condition Condition Condition Status Onset Resolution Last Treating Co mments Source Name Details Category Date Date Treatment Clinician Date Fever in Fever in Disease Active Unive rs adult adult 4-07 ity of 00:00: [place] [address] Medical Branch Febrile Febrile Disease Active Univers neutropeni neutropeni 6-05 it y of a a 00:00: [address] Pain in Pain in Problem Active Common right knee right knee Sp yasmeen - [facility] Other Other Problem Active Common specified specified Spir it types of types of - CHI non-Hodgki non-Hodgki [facility] n [facility] lymphoma, lymphoma, [facility] extranodal extranodal Ce nter and solid and solid organ organ sites sites Pancreatic Pancreatic Problem Active C ommon insufficie insufficie Sp yasmeen ncy ncy - [facility] Abdominal Abdominal Problem Active Com mon pain pain [facility] Gastritis Gastritis Problem Active Com mon [facility] Hypertensi Hypertensi Problem Active C ommon on on [facility] Diverticul Diverticul Problem Active C ommon osis of osis of [facility] Center colon colon - [facility] (without (without St mention of mention of [facility] hemorrhage hemorrhage Me dical ) ) Center Hyperchole Hyperchole Problem Active C ommon steremia steremia [facility] Low back Low back Problem Active Commo n pain pain [facility] IBS IBS Problem Active Common (irritable (irritable Sp yasmeen bowel bowel - CHI syndrome) syndrome) [facility] Irritable Irritable Problem Active Com mon bowel bowel Spirit syndrome syndrome - [facility]I with with St diarrhea [facility] History of History of Problem Active C ommon gastritis gastritis Spir it [facility] Metastatic Metastatic Problem Active C ommon breast breast Spirit cancer cancer - [facility] Irritable Irritable Problem Active Com mon bowel bowel Spirit syndrome syndrome - [facility]I with with St constipati constipati Floridalma kes on on [facility] Local Local Problem Active Common infection infection Spir it due to due to - [facility]I [facility] h, h, [facility] subsequent subsequent Me dical encounter encounter Cent er Hyperlipid Hyperlipid Problem Active C ommon emia, emia, Spirit unspecifie unspecifie - [facility]I d d St hyperlipid hyperlipid [facility] emia type emia type [facility] Center Lymphedema Lymphedema Problem Active C ommon of upper of upper Spirit extremity, extremity, - CHI bilateral bilateral [facility] Pain in Pain in Problem Active Common left knee left knee Spir it [facility] Dysphagia, Dysphagia, Problem Active C ommon unspecifie unspecifie Sp yasmeen d type d type - [facility] Status Status Problem Active Common post fall post fall Spir it - [facility] Pneumonia Pneumonia Problem Active Com mon of right of right Spirit upper lobe upper lobe - [facility]I due to due to St infectious infectious Floridalma kes organism organism Medica l [facility] Mixed Mixed Problem Active Common hyperlipid hyperlipid Sp yasmeen emia emia - [facility] Abnormal Abnormal Problem Active Commo n laboratory laboratory Sp yasmeen test test - CHI result result [facility] Cough Cough Diagnosis Active Common Spirit - [facility] Allergies, Adverse Reactions, Alerts Allergy Allergy Status Severity Reaction(s) Onset Inactive Treating Comm ents Source Name Type Date Date Clinician PINEAPPL DRUG Active N/V Univers E INGREDI 6- ity of 00:00: [place] 00 Medical Branch HYDROCOD DRUG Active Rash Univers ONE-ACET 09-21 ity of AMINOPHE 00:00: [place] N 00 Medical Branch Aspirin Propensi Active Unknown - Univ ers ty to See comments - ity of adverse 00:00: [place] reaction 00 Medical s Branch Ciproflo Propensi Active Nausea Univer s xacin ty to and/or 605 ity of adverse Vomiting 00:00: [place] reaction 00 Medical s Branch Meperidi Propensi Active Unknown - Uni vers ne Hcl ty to See comments 6 ity of adverse 00:00: [place] reaction 00 Medical s Branch Egg Propensi Active Nausea Univers ty to and/or 6-05 ity of adverse Vomiting 00:00: [place] reaction 00 Medical s Branch Levoflox Propensi Active Rash Univer s acin ty to 605 ity of adverse 00:00: [place] reaction 00 [...] Medical s Branch ASPIRIN DRUG Active Unknown-Cmnt 2018-0 Uni vers INGREDI 6-05 ity of 00:00: [place] 00 Medical Branch CIPROFLO DRUG Active N/V 2018-0 Univers XACIN INGREDI 6-05 ity of 00:00: [place] 00 Medical Branch MEPERIDI DRUG Active Unknown-Cmnt 0 Un georgina NE HCL INGREDI 6-05 ity of 00:00: [place] 00 Medical Branch EGG DRUG Active N/V 2018-0 Univers INGREDI 6-05 ity of 00:00: [place] 00 Medical Branch LEVOFLOX DRUG Active Rash 0 Univers ACIN INGREDI 6-05 ity of 00:00: [place] 00 Medical Branch MORPHINE DRUG Active Unknown-Cmnt Un georgina INGREDI 6-05 ity of 00:00: [place] 00 Medical Branch PENICILL Drug Active Rash 0 Univers INS Class 6-04 ity of 00:00: [...] Medical s Branch MILK DRUG Active N/V 0 Univers INGREDI 6-04 ity of 00:00: [place] 00 Medical Branch PCN Adverse Active Info Not Common Reaction Available [facility] MORPHINE Adverse Active Info Not Commo n Reaction Available [facility] Levaquin Adverse Active Info Not Commo n Reaction Available [facility] Corwin Adverse Active Info Not Common Cidol Reaction Available [facility] [address] [facility] Ciproflo Adverse Active Info Not Commo n xacin Reaction Available [facility] ASA-APAP Adverse Active Info Not Commo n -Salicyl Reaction Available [facility] rit -[facility] d [facility] milk Adverse Active Info Not Common Reaction Available [facility] pineappl Adverse Active Info Not Commo n es Reaction Available [facility] eggs Adverse Active Info Not Common Reaction Available [facility] Vicodin Adverse Active Info Not Common Reaction Available [facility] Social History Social Habit Start Date Stop Date Quantity Comments Source Exposure to Not sure [facility] SARS-CoV-2 (event) Medica l Branch Sex Ass[birth year] [facility] 00:00:00 00:00:00 Medical [place] Smoking Status Start Date Stop Date Source Unknown if ever smoked [facility] Medications Ordered Filled Start Stop Current Ordering Indication Dosage Frequency Signature Comments Components Source Medication Medication Date Date Medication? Clinician (SIG) Name Name gadoteridol 2021- No [id number] .2mL/kg 0.2 mL/kg, Univers (PROHANCE-1 08-04 Intravenou i ty of 5 mL) 15:00: 14:50 s, ONCE, 1 [place] injection 00 :00 dose, On Medica l 0.2 mL/kg [facility] Branch 08/04/21 at 1000, Routine cefUROXime 2021- Yes [id number] 500mg Take 1 Univers 500 mg 4-10 04-16 tablet by ity of tablet 00:00: 04:59 mouth 2 [place] 00 :00 (two) Medical times [place] daily for 5 days. cefUROXime 2021-2021- Yes [id number] 500mg Take 1 Univers 500 mg 4-10 04-16 tablet by ity of tablet 00:00: 04:59 mouth 2 [place] 00 :00 (two) Medical times [place] daily for 5 days. cefUROXime 2021- No [id number] 500mg Take 1 Univers 500 mg 4-10 04-16 tablet by ity of tablet 00:00: 04:59 mouth 2 [place] 00 :00 (two) Medical times [place] daily for 5 days. cholecalcif 2021-0 Yes [id number] 2000U Take 2 Univers joselin, 4-09 tablets by ity of vitamin D3, 00:00: mouth [place] 25 mcg 00 daily. Medical (1,000 Branch unit) tablet cholecalcif 2-0 Yes [id number] 2000U Take 2 Univers joselin, 4-09 tablets by ity of vitamin D3, 00:00: mouth [place] 25 mcg 00 daily. Medical (1,000 Branch unit) tablet cholecalcif 2022-0 Yes [id number] 2000U Take 2 Univers joselin, 4-09 tablets by ity of vitamin D3, 00:00: mouth [place] 25 mcg 00 daily. Medical (1,000 Branch unit) tablet cholecalcif 2022-0 Yes [id number] 2000U Take 2 Univers joselin, 4-09 tablets by ity of vitamin D3, 00:00: mouth [place] 25 mcg 00 daily. Medical (1,000 Branch unit) tablet cholecalcif 2022-0 Yes [id number] 2000U Take 2 Univers joselin, 4-09 tablets [...] 1600, unit/mL Routine injection 500 Units Omeprazole 2021-0 Yes Take by Uni vers 20 mg 4-08 mouth. ity of tablet 15:51: [address] Branch dicyclomine 2021-0 Yes 20mg Take 20 mg Univers 20 mg 4-08 by mouth 4 ity of tablet 15:51: (four) [place] 47 times Medical daily as Branch needed for Abdominal pain. Amylase-Lip 2021-0 Yes Take by Un georgina ase-Proteas 4-08 mouth 3 ity o f e (CREON) 15:51: (three) [place] 24,000-76,0 47 times Medical 00 -120,000 daily. Branch unit capsule ferrous 2021-0 Yes 325mg Take 325 Unive rs sulfate 325 4-08 mg by ity of mg (65 mg 15:51: mouth 2 [place] iron) 47 (two) Medical tablet times Branch daily. Omeprazole 2022-0 Yes Take by Uni vers 20 mg 4-08 mouth. ity of tablet 15:51: [address] Branch dicyclomine 2021-0 Yes 20mg Take 20 mg Univers 20 mg 4-08 by mouth 4 ity of tablet 15:51: (four) [place] 47 times Medical daily as Branch needed [...] mg 4-08 mouth. ity of tablet 15:51: [place] [address] Medical Branch dicyclomine 2022-0 Yes 20mg Take [...] mg 4-08 mouth. ity of tablet 15:51: [place] [address] Medical Branch dicyclomine 2022-0 Yes 20mg Take [...] mg 4-08 mouth. ity of tablet 15:51: [place] [address] Medical Branch dicyclomine 2022-0 Yes 20mg Take 20 mg Univers 20 mg 4-08 by mouth 4 ity of tablet 15:51: (four) [place] 47 times Medical daily as Branch needed for Abdominal pain. Amylase-Lip Yes Take by Un georgina ase-Proteas 4-08 mouth 3 ity o f e (CREON) 15:51: (three) [place] 24,000-76,0 47 times Medical 00 -120,000 daily. Branch unit capsule ferrous Yes 325mg Take 325 Unive rs sulfate 325 4-08 mg by ity of mg (65 mg 15:51: mouth 2 [place] iron) 47 (two) Medical tablet times Branch daily. cholecalcif Yes 2000U 2,000 Univ ers joselin 4-08 Units, ity of (vitamin 14:15: Oral, [place] D3) tablet 00 DAILY, Medical 2,000 Units First dose Br anch on Wed07/25/21 at 0915, Until Discontinu ed, Routine BISOPROLOL 2021- No 5mg Take 5 mg U nivers FUMARATE 07-25-08 by mouth ity of ORAL 13:43: 00:00 daily. [place] 57 :00 Medical Branch ondansetron 2021- No 4mg Take 4 mg Univers (ZOFRAN 07-25-08 by mouth ity of ODT) 4 mg 13:43: 00:00 every 8 [place] disintegrat 57 :00 (eight) Medic al ing tablet hours as Branc h needed. rosuvastati 2021- No 20mg Take 20 mg Univers n 20 mg 07-25-08 by mouth ity of tablet 13:43: 00:00 at [place] 57 :00 bedtime. Medical Branch losartan 50 2021- No 50mg Take 50 mg Univers mg tablet 07-25-08 by mouth ity o f 13:43: 00:00 daily. [place] 57 :00 Medical Branch SERTraline 2021- No 25mg Take 25 mg Univers 25 mg 07-25-08 by mouth ity of tablet 13:43: 00:00 daily. [place] 57 :00 Medical Branch enoxaparin Yes [id number] 100mg inject 1 Univers 100 mg/mL 4-08 [...] Cough. Indication s: cough enoxaparin 2022-0 Yes [id number] 100mg inject 1 Univers 100 mg/mL 4-08 [...] Cough. Indication s: cough enoxaparin 2022-0 Yes [id number] 100mg inject 1 Univers 100 mg/mL 4-08 [...] Cough. Indication s: cough enoxaparin 2022-0 Yes [id number] 100mg inject 1 Univers 100 mg/mL 4-08 [...] Cough. Indication s: cough enoxaparin 2022-0 Yes [id number] 100mg inject 1 Univers 100 mg/mL 4-08 [...] 00 ABX, First Medical dose on Branch [facility] 07/24/21 at 1600, Until Discontinu ed, Routine iopamidol 2021-0 2022- No [id number] 75mL 75 mL, Univers (ISOVUE 07-24 04-07 Intravenou ity o f 370-500 mL) 20:04: 20:04 s, ONCE, 1 [place] injection 00 :00 dose, On Medica l 75 mL [facility] 07/24/21 Branch at 1515, Routine guaiFENesin 2021-0 Yes 100mg 100 mg, Un georgina 100 mg/5 mL 07-24 Oral, Q4H, it y of solution 17:00: First dose [place] as 100 mg 00 on [facility] Medical 07/24/21 at Branch 1200, Until Discontinu ed, Routine ipratropium 2021-0 Yes 3mL 3 mL, Unive rs -albuteroL 07-24 Inhalation ity of (DUONEB) 17:00: , QID, [place] 0.5 mg-3 00 First dose Medic al mg(2.5 mg on [facility] base)/3 mL 07/24/21 at nebulizer 1200, solution 3 Until mL Discontinu ed, Routine traMADoL 2021-0 Yes 50mg 50 mg, Univers (ULTRAM) 07-24 Oral, ity of tablet 50 15:07: Q4HPRN, [place] mg 58 Starting Medical on [facility] 07/24/21 at 1007, Until Discontinu ed, Routine, Pain (scale 4-6), Pain (scale 7-10) omeprazole 2021-0 Yes 20mg 20 mg, Unive rs (PRILOSEC) 07-24 Oral, ity of capsule 20 14:00: DAILY, [place] mg 00 First dose Medical on [facility] 07/24/21 at 0900, Until Discontinu ed cetirizine 2021-0 Yes 10mg 10 mg, Unive rs (ZYRTEC) 07-24 Oral, ity of tablet 10 14:00: DAILY, [place] mg 00 First dose Medical on [facility] 07/24/21 at 0900, Until Discontinu ed, Routine [...] First dose Medi babatunde NaCl 0.9% on [facility] Branch (NS) 250 mL 07/24/21 at VIAL-MATE 0545, IV Until piggyback Discontinu ed, Administer over 60 Minutes, 250 mL
Reas on for Anti-Infec tive: Empiric Therapy for Suspected Infection< br>Empiric Therapy Site: Respirator y
Durat ion of therapy: 7 days ondansetron 0 Yes 4mg 4 mg, Slow Univers (ZOFRAN 07-24 IV Push, ity of (PF)) 07:26: Q6HPRN, [place] injection 4 39 Starting Medi babatunde mg on [facility] Branch 07/24/21 at 0226, Until Discontinu ed, [...] of 1,000 mg in 05:30: 06:01 Piggyback, [place] NaCl 0.9% 00 :00 ONCE, 1 Medical [...] 1000mL at 999 Uni vers (NS) IV 07-24- mL/hr, ity of infusion 04:00: 18:13 Intravenou [place] 1,000 mL 00 :30 s, Medical CONTINUOUS Branch , Starting on Wed07/23/21 at 2300, Until Elle 07/24/21 at 1313, Routine iopamidol 2021- No [id number] 100mL 100 mL, Univers (ISOVUE 05-31-12 Intravenou ity o f 370-500 mL) 01:45: 00:23 s, ONCE, 1 [place] injection 00 :00 dose, On Medica l 100 mL Fri Branch 05/30/21 at 1945, Routine albuterol Yes [id number] 2{puff} Inhale 2 Univers 90 2-11 Puffs ity of mcg/actuati 00:00: every 4 [place] as on inhaler 00 (four) Medical hours as Branch needed for Wheezing or Shortness of Breath. bromphenira Yes [id number] 5mL Take 5 mL Univers mine-pseudo 2-11 by mouth 4 it y of ephedrine-D 00:00: (four) [place] M (BROMFED 00 times Medical DM) 2-30-10 daily as Bran ch mg/5 mL needed for syrup Cold symptoms or Cough. albuterol Yes [id number] 2{puff} Inhale 2 Univers 90 2-11 Puffs ity of mcg/actuati 00:00: every 4 [place] as on inhaler 00 (four) Medical hours as Branch needed for Wheezing or Shortness of Breath. albuterol Yes [id number] 2{puff} Inhale 2 Univers 90 2-11 Puffs ity of mcg/actuati 00:00: every 4 [place] on inhaler 00 (four) Medical hours as Branch needed for Wheezing or Shortness of Breath. albuterol Yes [id number] 2{puff} Inhale 2 Univers 90 2-11 Puffs ity of mcg/actuati 00:00: every 4 [place] on inhaler 00 (four) Medical hours as Branch needed for Wheezing or Shortness of Breath. albuterol Yes [id number] 2{puff} Inhale 2 Univers 90 2-11 Puffs ity of mcg/actuati 00:00: every 4 [place] on inhaler 00 (four) Medical hours as Branch needed for Wheezing or Shortness of Breath. albuterol Yes [id number] 2{puff} Inhale 2 Univers 90 2-11 Puffs ity of mcg/actuati 00:00: every 4 [place] on inhaler 00 (four) Medical hours as Branch needed for Wheezing or Shortness of Breath. albuterol Yes [id number] 2{puff} Inhale 2 Univers 90 2-11 Puffs ity of mcg/actuati 00:00: every 4 [place] on inhaler 00 (four) Medical hours as Branch needed for Wheezing or Shortness of Breath. bromphenira Yes [id number] 5mL Take 5 mL Univers mine-pseudo 2-11 by mouth 4 it y of ephedrine-D 00:00: (four) [place] M (BROMFED 00 times Medical DM) 2-30-10 daily as Bran ch mg/5 mL needed for syrup Cold symptoms or Cough. bromphenira 2021- No [id number] 5mL Take 5 mL Univers mine-pseudo 2-11 04-08 by mouth 4 i ty of ephedrine-D 00:00: 00:00 (four) [place] M (BROMFED 00 :00 times Medical DM) 2-30-10 daily as Bran ch mg/5 mL needed for syrup Cold symptoms or Cough. Albuterol Albuterol 2018-04 Yes Charo 2 puffs as Common Sulfate HFA Sulfate HFA 2-02 [place] needed Spirit 00:00: - [facility] 00 [facility] Medrol Medrol 2019-1 2019- No [place] as Common 2-02 12-07 [place] directed Spirit 00:00: 00:00 - [facility]I 00 :00 [facility] Rosuvastati Rosuvastati 2019-1 Yes Charo 1 tablet Common n Calcium n Calcium 1 [place] Spir it 00:00: - [facility]I 00 [facility] Sertraline Sertraline 2019-1 Yes Charo 1 tablet Common HCl HCl 009 [place] Spirit 00:00: - [facility] 00 [facility] Losartan Losartan 2019-0 Yes Charo 1 tablet Common Potassium Potassium 118 [place] Spir it 00:00: - [facility]I 00 [facility] fluconazole 2018-0 Yes 200mg Take 1 Uni vers 200 mg 6-10 tablet by ity of tablet 00:00: mouth [place] 00 daily. Medical Branch cetirizine 2017-0 Yes 10mg Take 1 Unive rs 10 mg 6-10 tablet by ity of tablet 00:00: mouth [place] 00 daily. Medical Branch cetirizine 0 Yes 10mg Take 1 Unive rs 10 mg 6-10 tablet by ity of tablet 00:00: mouth [place] 00 daily. Medical Branch cetirizine 0 Yes 10mg Take 1 Unive rs 10 mg 6-10 tablet by ity of tablet 00:00: mouth [place] 00 daily. Medical Branch cetirizine 0 Yes 10mg Take 1 Unive rs 10 mg 6-10 tablet by ity of tablet 00:00: mouth [place] 00 daily. Medical Branch cetirizine 0 Yes 10mg Take 1 Unive rs 10 mg 6-10 tablet by ity of tablet 00:00: mouth [place] 00 daily. Medical Branch cetirizine 2017-0 Yes 10mg Take 1 Unive rs 10 mg 6-10 tablet by ity of tablet 00:00: mouth [place] 00 daily. Medical Branch fluconazole 2018-0 Yes 200mg Take 1 Uni vers 200 mg 6-10 tablet by ity of tablet 00:00: mouth [place] 00 daily. Medical Branch cetirizine 2017-0 Yes 10mg Take 1 Unive rs 10 [...] [place] 00 daily. Medical Branch fluconazole 2018-0 2- No 200mg Take 1 Un georgina 200 mg 6-10 04-08 tablet by ity of tablet 00:00: 00:00 mouth [place] 00 :00 daily. Medical Branch Omeprazole 2017-0 Yes Take by Uni vers 20 mg 6-09 mouth. ity of tablet 14:07: [place] 03 Medical Branch dicyclomine 2017-0 Yes 20mg Take 20 mg Univers 20 mg 6-09 by mouth 4 ity of tablet 14:07: (four) [place] 03 times Medical daily as Branch needed [...] 6-09 by mouth. ity of ORAL 14:07: [address] Branch Amylase-Lip 2018-0 Yes Take by [...] mg 6-09 mouth. ity of tablet 14:07: [address] Branch dicyclomine 2018-0 Yes 20mg Take 20 mg Univers 20 mg 6-09 by mouth 4 ity of tablet 14:07: (four) [place] 03 times Medical daily as Branch needed for Abdominal pain. BISOPROLOL 2018-0 Yes 5mg Take 5 mg Un georgina FUMARATE 6-09 by mouth. ity of ORAL 14:07: [address] Amylase-Lip 2018-0 Yes Take by Un [...] mg 6-09 mouth. ity of tablet 14:07: [address] Branch dicyclomine 2018-0 Yes 20mg Take [...] Common Sodium Sodium [place] in evening Spir it [facility] Vitamin D Vitamin D Yes Charo 1 tablet Common [facility] Zantac Zantac Yes Charo 1 tablet Commo n [place] at bedtime [facility] Linzess Linzess Yes Charo not Common [place] defined [facility] Bisoprolol Bisoprolol Yes Charo 1 tablet Common Fumarate Fumarate [facility] Omeprazole Omeprazole Yes Charo 1 capsule Common Jordan [facility] Gabapentin Gabapentin Yes Charo 1 capsule Common [place] as needed Spirit for pain [facility] Creon Creon 2019- No Charo 1 capsule Commo n 07-09 [place] (24,000 Spirit 00:00 u--76,000 - [facility] :00 u[facility]120,000 [facility] Immun[facility] Ordered Filled Immunization Date Status Comments [facility] e Immunization Name Name SARS-COV-2 COVID-19 2020-07-14 Completed Unive rsity of MODERNA VACCINE 00:00:00 [facility] SARS-COV-2 COVID-19 2020-07-14 Completed Unive rsity of MODERNA VACCINE 00:00:00 [facility] SARS-COV-2 COVID-19 2020-07-14 Completed Unive rsity of MODERNA VACCINE 00:00:00 [facility] SARS-COV-2 COVID-19 2020-07-14 Completed Unive rsity of MODERNA VACCINE 00:00:00 [place] [facility] ical Branch SARS-COV-2 COVID-19 2020-07-14 Completed Unive rsity of MODERNA VACCINE 00:00:00 [place] [facility] ical Branch SARS-COV-2 COVID-19 2020-07-14 Completed Unive rsity of MODERNA VACCINE 00:00:00 [place] [facility] ical Branch SARS-COV-2 COVID-19 2020-07-14 Completed Unive rsity of MODERNA VACCINE 00:00:00 [place] [facility] ical Branch SARS-COV-2 COVID-19 2020-07-14 Completed Unive rsity of MODERNA VACCINE 00:00:00 [facility] ical Branch SARS-COV-2 COVID-19 2020-07-14 Completed Unive rsity of MODERNA VACCINE 00:00:00 [facility] ical Branch SARS-COV-2 COVID-19 2020-06-16 Completed Unive rsity of MODERNA VACCINE 00:00:00 [place] [facility] ical Branch SARS-COV-2 COVID-19 2020-06-16 Completed Unive rsity of MODERNA VACCINE 00:00:00 [facility] ical Branch SARS-COV-2 COVID-19 2020-06-16 Completed Unive rsity of MODERNA VACCINE 00:00:00 [facility] ical Branch SARS-COV-2 COVID-19 2020-06-16 Completed Unive rsity of MODERNA VACCINE 00:00:00 [facility] ical Branch SARS-COV-2 COVID-19 2020-06-16 Completed Unive rsity of MODERNA VACCINE 00:00:00 [facility] ical Branch SARS-COV-2 COVID-19 2020-06-16 Completed Unive rsity of MODERNA VACCINE 00:00:00 [facility] ical Branch SARS-COV-2 COVID-19 2020-06-16 Completed Unive rsity of MODERNA VACCINE 00:00:00 [facility] ical Branch SARS-COV-2 COVID-19 2020-06-16 Completed Unive rsity of MODERNA VACCINE 00:00:00 [facility] ical Branch SARS-COV-2 COVID-19 2020-06-16 Completed Unive rsity of MODERNA VACCINE 00:00:00 [facility] Vital Signs Vital Name Observation Time Observation Value Comments Source Respiratory rate 2021-07-25 20:33:00 18 /min Univ ersity of [facility] Oxygen saturation in 2021-07-25 20:33:00 99 /min University of Arterial blood by [facility] Pulse oximetry Branch Systolic blood 2021-07-25 17:11:00 155 mm[Hg] Univer sity of pressure [facility] Diastolic blood 2021-07-25 17:11:00 77 mm[Hg] Unive rsity of pressure [facility] Heart rate 2021-07-25 17:11:00 94 /min Universi ty of [facility] Body temperature 2021-07-25 17:11:00 36.06 Nasar Univ ersity of [facility] Body weight 2021-07-25 08:43:00 67.495 kg Universi ty [facility] BMI 2021-07-25 08:43:00 30.05 kg/m2 Universi ty [facility] Body height 2021-07-24 01:01:00 149.9 cm Universi ty [facility] Systolic blood 2021-05-31 02:02:00 127 mm[Hg] Univer sity of pressure [facility] Diastolic blood 2021-05-31 02:02:00 69 mm[Hg] Unive rsity of [facility] Heart rate 2021-05-31 02:02:00 82 /min Universi ty [facility] Respiratory rate 2021-05-31 02:02:00 19 /min Univ ersity [facility] Oxygen saturation in 2021-05-31 02:02:00 95 /min University of Arterial blood by [facility] Pulse oximetry Branch Body temperature 2021-05-30 19:10:00 36.89 Nasra Univ ersity of [facility] Body weight 2021-05-30 19:10:00 61.689 kg Universi ty of [facility] BMI 2021-05-30 19:10:00 27.47 kg/m2 Universi ty [facility] [facility] Procedure Date / Time Performing Clinician Source Performed MR BRAIN W CONTRAST 2021-08-04 14:48:24 [facility] MR BRAIN WO CONTRAST 2021-08-01 20:46:42 Lyssa Tovar [facility] BASIC METABOLIC PANEL (NA, 2021-07-25 10:20:00 [facility] [place] K, CL, CO2, GLUCOSE, BUN, Medica l Branch CREATININE, CA) CBC WITH DIFF 2021-07-25 10:20:00 [facility] US DUPLEX VENOUS ARM RIGHT 2021-07-24 20:26:56 Buddy Greene [facility] - BY VASCULAR LAB [facility] CT THORAX W CONTRAST 2021-07-24 20:13:34 Buddy Greene [facility] VITAMIN B12, LEVEL 2021-07-24 14:47:00 Buddy Greene [facility] FOLATE 2021-07-24 14:47:00 Jc [facility] VITAMIN D, 25-OH 2021-07-24 14:47:00 Jc Buddy [facility] CT HEAD WO CONTRAST 2021-07-24 04:54:48 Dave Glover [facility] BLOOD CULTURE SCREEN 2021-07-24 04:29:00 Dave Glover [facility] BLOOD CULTURE SCREEN 2021-07-24 04:28:00 Dave Glover [facility] URINALYSIS 2021-07-24 03:45:00 Dave Glover [facility] URINE CULTURE 2021-07-24 03:45:00 Dave Glover [facility] XR CHEST 1 VW 2021-07-24 02:44:20 Dave Glover [facility] RAPID INFLUENZA A/B 2021-07-24 02:26:00 Dave Glover [facility] COVID-19 (ID NOW RAPID 2021-07-24 02:26:00 Dave Glover [facility] TESTING) Medical Branch LAB ONLY COVID 2021-07-24 02:26:00 Dave Glover [facility] INTERPRETATION [facility] LACTIC ACID WHOLE BLOOD 2021-07-24 02:22:00 [facility] FERR[facility] SERUM 2021-07-24 02:21:00 Jc [facility] THYROID STIMULATING 2021-07-24 02:21:00 Buddy Greene [facility] HORMONE Medical Branch COMP. METABOLIC PANEL 2021-07-24 02:21:00 Dave Glover [facility] ([id number]) Medical Branch IRON PANEL 2021-07-24 02:21[facility] 2021-07-24 02:21:00 Jc [facility] INTERPRETATION [facility] CBC WITH DIFF 2021-07-24 02:21:00 Dave Glover [facility] NOTICE OF PRIVACY 2021-07-24 00:24:53 Doctor Carolyn, [facility] PRACTICES [place] [facility] CONSENT/REFUSAL FOR 2021-07-24 00:22:50 Doctor Carolyn [facility] DIAGNOSIS AND TREATMENT [place] [facility] AUTHORIZATION FOR RELEASE 2021-06-25 06:01:00 Doctor Leon, [facility] CT CHEST PULMONARY 2021-05-31 00:24:49 Singer Milton [facility] ANGIOGRAM Medical Branch TROPONIN I 2021-05-30 21:25:00 Singer [facility] COMP. METABOLIC PANEL 2021-05-30 21:25:00 Milton Rivero [facility] ([id number]) [facility] CBC WITH DIFF 2021-05-30 21:25:00 Singer [facility] N-TERMINAL PRO-BNP 2021-05-30 21:25:00 Singer Milton [facility] CONSENT/REFUSAL FOR 2021-05-30 19:04:56 Doctor Leon [facility] DIAGNOSIS AND TREATMENT [facility] NOTICE OF BILLING 2021-05-20 14:00:10 Doctor Carolyn, [facility] FOR MEDICARE [place] [facility] ranch PATIENTS [facility] PATIENT FINANCIAL 2021-05-20 13:59:30 Doctor Unassigned, Un [facility] POLICY [place] NO SHOW OR MISSED 2021-05-20 13:58:51 Doctor Unassigned, [facility] APPOINTMENT POLICY [place] [facility] h ACKNOWLEDGEMENT NOTICE OF PRIVACY 2021-05-20 13:58:31 Doctor Unassigned, [facility] [place] [facility] CONSENT/REFUSAL FOR 2021-05-20 13:58:12 Doctor Unassigned, [facility] DIAGNOSIS AND TREATMENT [place] [facility] ASSIGNMENT OF BENEFITS 2021-05-20 13:57:56 Doctor Unassigned, Un [facility] [facility] Encounters Start End Encounter Admission Attending Care Care Encounter Source Date/Time Date/Time Type Type Clinicians Facility Department ID 2021-09-19 Outpatient Romeo, STLMLC STLMLC [id number] Common 09:52:01 [facility] 2021-08-08 Outpatient Romeo, STLMLC STLMLC [id number] Common 10:44:00 [facility] 2021-07-10 Outpatient STLMLC STLMLC [id number] Common 10:08:00 [address] [facility] 2021-05-30 Outpatient STLMLC STLMLC [id number] Common 10:22:00 [facility] 2021-05-14 Outpatient STLMLC STLMLC [id number] Common 14:16:41 19008 [facility] 2021-05-14 Outpatient STLMLC STLMLC [id number] Common 13:06:40 36477 [facility] 2021-05-14 Outpatient Millender, STLMLC STLMLC [id number] Common 11:19:38 Jennifer 54457 [facility] 2021-05-14 Outpatient Millender, STLMLC STLMLC [id number] Common 10:59:02 Jennifer 89618 [facility] 2021-05-14 Outpatient Millender, STLMLC STLMLC [id number] Common 10:58:45 Jennifer 11815 [facility] 2021-08-04 2021-08-04 Outpatient R RADIOLOGY [facility] [id number] Univers 08:45:15 23:59:00 ity of [facility] 2021-08-04 2021-08-04 [facility] Radiology UNIVERSIT [id number] Univers 08:30:00 23:59:00 Encounter Y HEALTH [id number] it[place] [id number] [facility] [address] 2021-08-04 2021-08-04 Outpatient R RADIOLOGY [facility] [id number] Univers 08:30:00 08:30:00 [id number] ity of [facility] 2021-08-01 2021-08-01 Outpatient R RADIOLOGY [facility] [id number] Univers 12:12:23 23:59:00 ity of [facility] 2021-08-01 2021-08-01 [facility] Radiology [facility] [id number] Univers 12:12:23 23:59:00 Encounter STEVE [id number] [place] [id number] [facility] [address] 2021-08-01 2021-08-01 Primary Products Inspectors Madelaine, Dejan Lab Main [facility] 1.2.8 [id number] Univers 12:15:00 12:30:00 Visit Satya Campoverde 350.1.13.10 [place] [facility] [id number] Ma dical [facility] 353 [facility] 2021-08-01 2021-08-01 Outpatient R RADIOLOGY [facility] [id number]-20 Univers 12:15:00 12:15:00 [id number] ity of [facility] 2021-07-28 2021-07-28 Transition IRISH Barraza 1.2.840.114 [id number] Univers 00:00:00 00:00:00 of Care Nat LIGHT 350.1.13.10 i ty of [place] [id number] [facility] 403 Branch 2021-07-23 2021-07-25 Outpatient X BELEN, [facility] ELLIOT [id number] Univers 20:02:00 15:50:00 WAKILI ity of [facility] 2021-07-23 2021-07-25 Emergency Dave Glover S [facility] 1.2.840 .114 [id number] Univers 20:02:00 15:50:00 Hortencia Soriano 350.1.13.10 ity of [place] 4.2.7.2.686 [facility] [id number] [facility] 081 Branch 2021-07-18 2021-07-18 Outpatient KHAITAN, [facility] [id number] [place] 00:00:00 00:00:00 NELSON 623 Method i 2021-07-10 2021-07-10 Outpatient PANT [facility] [id number] [place] 00:00:00 00:00:00 BLANKA, [address] bob BOURGEOIS 2021-06-25 2021-06-25 Orders Doctor JOSE 1.2.840.114 [id number] Univers 00:00:00 00:00:00 Only Unassigned, ANTONIETA 350.1.13.10 [facility] [address] [place] [address] [id number] [facility] 009 Branch 2021-05-30 2021-05-30 Emergency Rivero, [facility] [id number] Univers 13:14:00 20:10:00 Milton WILSON 350.1.13.10 i ty of [place] 4.2.7.2.686 [facility] [id number] [facility] 084 Branch 2021-05-30 2021-05-30 Emergency X , [facility] ERT [id number] Univers 13:14:00 20:10:00 MILTON trivedi of [facility] 2021-05-20 2021-05-20 Hospital Radiology [facility] 1.2.840.114 [id number] Univers 08:02:49 23:59:00 Salazar WILSON 350.1.13.10 ity of [place] 4.2.7.2.686 [facility] [id number] [facility] 801 Branch 2021-05-20 2021-05-20 Hospital Radiology [facility] 1.2.840.114 [id number] Univers 08:00:00 08:01:00 Encounter STEVE 350.1.13.10 ity kevin RUSS 4.2.7.2.686 [facility] [id number] [place] [address] Branch 2021-05-20 2021-05-20 Outpatient R RADIOLOGY [facility] [id number] Univers 00:00:00 08:01:00 ity of [facility] 2019-03-20 2019-03-20 [facility] [id number] Common 16:00:00 16:00:[address] [facility] [address] [facility] 2019-03-05 2019-03-05 Outpatient [facility] [id number] Common 21:11:00 21:11:[address] [facility] 2019-02-23 2019-02-23 [facility] [id number] Common 15:22:00 15:22:[address] [facility] 2019-02-17 2019-02-17 Out[facility] [id number] Common 12:48:00 12:48:[address] [facility] 2019-02-17 2019-02-17 Out[facility] [id number] Common 11:20:00 11:20:[address] [facility] 2019-02-04 2019-02-04 Outpatient [facility] [id number] Common 16:47:00 16:47:[address] [facility] 2019-01-25 2019-01-25 Outpatient [facility] [id number] Common 13:00:00 13:00:[address] [facility] 2018-10-19 2018-10-19 Out[facility] [id number] Common 09:40:00 09:40:[address] [facility] 2018-08-03 2018-08-03 Outpatient [facility] [id number] Common 09:40:00 09:40:[address] [facility] 2018-05-08 2018-05-08 Outpatient [facility] [id number] Common 14:55:00 14:55:[address] [facility] 2018-05-06 2018-05-06 Outpatient [facility] [id number] Common 10:45:00 10:45:[address] [facility] [address] [facility] 2018-04-08 2018-04-08 Outpatient [facility] [id number] Common 09:51:00 09:51:00 [facility] 2018-01-31 2018-01-31 Out[facility] [id number] Common 11:29:00 11:29:[address] [facility] 2018-01-18 2018-01-18 Outpatient [facility] [id number] Common 11:00:00 11:00:[address] [facility] [address] [facility] Results Test Description Test Time Test Comments Results Result [facility] e Comments DIFF CONSULT MILD ABSOLUTE Universit y of INTERPRETATION 8 MONOCYTOSIS. [facility] dical 19:10:34 NORMOCYTIC, Branch HYPOCHROMIC ANEMIA. PLATELETS ARE UNREMARKABLE. Basic Metabolic Panel (NA, K, CL, CO2, GLUCOSE, BUN, 2021-07 11:24:48 CREATININE, CA) Test Item Value Reference Range Interpretation Comme nts NA (test code = 2135346843) 133 mmol/L 135-145 L K (test code = 7851188008) 3.5 mmol/L 3.5-5.0 CL (test code = 4479347844) 99 mmol/L 98-108 CO2 TOTAL (test code = 4280768549) 31 mmol/L 23-31 AGAP (test code = 1768957187) 2-16 BUN (test code = 5128189065) 10 mg/dL 7-23 GLUCOSE (test code = 9100880001) 97 mg/dL 70-110 CREATININE (test code = 0.64 mg/dL 0.50-1.04 3381876404) CALCIUM (test code = 5031106199) 8.2 mg/dL 8.6-10.6 L eGFR (test code = 3980184245) mL/min/1.73m2 MICA (test code = MICA) Association [...] tests). Lab Interpretation (test code = Abnormal 32052-9) [facility] with [id number] 10:57:44 Test Item Value Reference Range Interpretation Comments WBC (test code = See_Comment [Automated 6990-2) message] The sy stem which generated this [...] (test code = 53.1 fL 39.0-49.9 H 20184-6) RDW-CV (test code = 15.9 % 12.0-15.5 H 788-0) PLT (test code = See_Comment [Automated 777-3) message] The sy stem which generated this result transmitted reference range : 166 - 358 10*3/ ?L. The reference r constantin was not used to interpret this result as normal/abnormal . MPV (test code = 9.6 fL 9.5-12.9 43607-6) NRBC/100 WBC (test See_Comment [Automat ed code = 7463217922) message] The system which generated this result transmitted reference range : 0.0 - 10.0 /100 WBCs. The refer ence range was not u sed to interpret th is result as normal/abnormal . NRBC x10^3 (test code <0.01 See_Comment [Auto mated = 2601219128) message] The s ystem which generated this result transmitted reference range : 10*3/?L. The reference range was not used to interpret this result as normal/abnormal . GRAN MAT (NEUT) % 70.7 % (test code = 770-8) IMM GRAN % (test code 0.40 % = 9652299442) LYMPH % (test code = 17.6 % 736-9) MONO % (test code = 9.7 % 5905-5) EOS % (test code = 1.1 % 713-8) BASO % (test code = 0.5 % 706-2) GRAN MAT x10^3(ANC) 6.57 10*3/uL 1.88-7.09 (test code = 9590016522) IMM GRAN x10^3 (test 0.04 10*3/uL 0.00-0.06 code = 7847449547) LYMPH x10^3 (test code 1.64 10*3/uL 1.32-3.29 = 731-0) MONO x10^3 (test code 0.90 10*3/uL 0.33-0.92 = 742-7) EOS x10^3 (test code = 0.10 10*3/uL 0.03-0.39 711-2) BASO x10^3 (test code 0.05 10*3/uL 0.01-0.07 = 704-7) Lab Interpretation Abnormal (test code = 62953-1) [facility], [id number] 21:35:24 Test Item Value Reference Range Interpretation Comments VIT D 25OH (test code = 22 ng/mL 25-80 L 59248-0) MICA (test code = MICA) Deficiency: <20 ng/mLInsufficiency: 20-24 ng/mLOptimal: 25-80 ng/mL Lab Interpretation (test Abnormal code = 15729-1) [facility] B12, [id number] 21:34:44 Test Item Value Reference Range Interpretation Comments VIT B12 (test code = 316 pg/mL 240-930 8305613169) MICA (test code = MICA) Biotin has been reported to cause a positive bias, interpret results relative to patient's use of biotin. Lab Interpretation (test Normal code = 75442-2) [facility]2022-[facility]-07 21:34:44 Test Item Value Reference Range Interpretation Comments FOLATE SER (test code = 3.7 ng/mL 3.0-20.0 Biot in has been 7428497636) reported to cau se a positive bias, interpret resul ts relative to patient's use o f biotin. Lab Interpretation (test Normal code = 93076-0) [facility]ERR[facility] [id number] 15:17:19 Test Item Value Reference Range Interpretation Comments FERRITIN (test code = 992.0 ng/mL 11.0-264.0 H 4182053998) MICA (test code = MICA) Biotin has been reported to cause a negative bias, interpret results relative to patient's use of biotin. Lab Interpretation (test Abnormal code = 17096-8) [facility]YROID STIMULATING [id number] 15:13:22 Test Item Value Reference Range Interpretation Comments TSH (test code = See_Comment [Automated message] 5179577164) The system Closely generated this result transmitted ref erence range: 0.45 - 4 .70 mIU/L. The refe rence range was not u sed to interpret this result as normal/abnor mal. Lab Interpretation (test Normal code = 40975-4) [facility] [id number] 14:50:52 Test Item Value Reference Range Interpretation Comments IRON (test code = 2808134358) 27 ug/dL 50-160 L TIBC (test code = 1484159389) 220 ug/dL 250-410 L % FE SAT (test code = 3540122174) 12 % 20-50 L Lab Interpretation (test code = Abnormal 61747-6) [facility] METABOLIC PANEL (25426)2021-07-24 02:48:08 Test Item Value Reference Range Interpretation Comments NA (test code = 137 mmol/L 135-145 1075880046) K (test code = 3.9 mmol/L 3.5-5.0 3939313246) CL (test code = 101 mmol/L 98-108 1315013226) CO2 TOTAL (test code = 28 mmol/L 23-31 1810032025) AGAP (test code = 2-16 5575151566) BUN (test code = 13 mg/dL 7-23 4645520176) GLUCOSE (test code = 96 mg/dL 70-110 1338158451) CREATININE (test code = 0.66 mg/dL 0.50-1.04 3836471176) TOTAL BILI (test code = 0.5 mg/dL 0.1-1.6 4837540183) CALCIUM (test code = 8.6 mg/dL 8.6-10.6 4064743957) T PROTEIN (test code = 6.4 g/dL 6.3-8.2 1266283926) ALBUMIN (test code = 3.4 g/dL 3.5-5.0 L 1990551483) ALK PHOS (test code = 70 U/L 34-122 7341660991) ALTv (test code = 8 U/L 5-35 1742-6) AST(SGOT) (test code = 27 U/L 13-40 8223246969) eGFR (test code = mL/min/1.73m2 4107991520) MICA (test code = MICA) Association of [...] tests). Lab Interpretation Abnormal (test code = 51523-8) [facility] WITH [id number] 02:34:28 Test Item Value Reference Range Interpretation Comments WBC (test code = See_Comment [Automated 6190-2) message] The sy stem which generated this [...] (test code = 53.2 fL 39.0-49.9 H 07572-6) RDW-CV (test code = 15.9 % 12.0-15.5 H 788-0) PLT (test code = See_Comment [Automated 777-3) message] The sy stem which generated this result transmitted reference range : 166 - 358 10*3/ ?L. The reference r constantin was not used to interpret this result as normal/abnormal . MPV (test code = 9.8 fL 9.5-12.9 65090-9) NRBC/100 WBC (test See_Comment [Automat ed code = 4359883329) message] The system which generated this result transmitted reference range : 0.0 - 10.0 /100 WBCs. The refer ence range was not u sed to interpret th is result as normal/abnormal . NRBC x10^3 (test code <0.01 See_Comment [Auto mated = 2951629410) message] The s ystem which generated this result transmitted reference range : 10*3/?L. The reference range was not used to interpret this result as normal/abnormal . GRAN MAT (NEUT) % 65.3 % (test code = 770-8) IMM GRAN % (test code 0.30 % = 8540411031) LYMPH % (test code = 22.0 % 736-9) MONO % (test code = 10.6 % 5905-5) EOS % (test code = 1.3 % 713-8) BASO % (test code = 0.5 % 706-2) GRAN MAT x10^3(ANC) 6.27 10*3/uL 1.88-7.09 (test code = 1463366285) IMM GRAN x10^3 (test 0.03 10*3/uL 0.00-0.06 code = 4459251750) LYMPH x10^3 (test code 2.11 10*3/uL 1.32-3.29 = 731-0) MONO x10^3 (test code 1.02 10*3/uL 0.33-0.92 H = 742-7) EOS x10^3 (test code = 0.12 10*3/uL 0.03-0.39 711-2) BASO x10^3 (test code 0.05 10*3/uL 0.01-0.07 = 704-7) Lab Interpretation Abnormal (test code = 18089-3) [facility] Springs[facility] Whole [id number] 02:32:27 Test Item Value Reference Range Interpretation Comments LACTIC ACID (test code = 1.00 mmol/L 0.50-2.20 1707961465) Lab Interpretation (test code = Normal 18100-5) [facility]. METABOLIC PANEL (76827)2021-05-30 22:05:45 Test Item Value Reference Range Interpretation Comments NA (test code = 140 mmol/L 135-145 4531736413) K (test code = 3.7 mmol/L 3.5-5.0 6176121854) CL (test code = 108 mmol/L 98-108 7591289379) CO2 TOTAL (test code = 28 mmol/L 23-31 0634342974) AGAP (test code = 2-16 8401616029) BUN (test code = 18 mg/dL 7-23 9840419488) GLUCOSE (test code = 106 mg/dL 70-110 2831837719) CREATININE (test code = 0.63 mg/dL 0.50-1.04 8318660943) TOTAL BILI (test code = 0.5 mg/dL 0.1-1.0 2664123310) CALCIUM (test code = 8.5 mg/dL 8.6-10.6 L 2429451448) T PROTEIN (test code = 5.8 g/dL 6.3-8.2 L 2039740350) ALBUMIN (test code = 3.4 g/dL 3.5-5.0 L 8715471175) ALK PHOS (test code = 68 U/L 34-122 5450176053) ALTv (test code = 16 U/L 5-35 1742-6) AST(SGOT) (test code = 31 U/L 13-40 3784202605) eGFR (test code = mL/min/1.73m2 5186605535) MICA (test code = MICA) Association of [...] tests). Lab Interpretation Abnormal (test code = 73697-6) [facility] [id number] 22:04:45 Test Item Value Reference Interpretation Comments Range TROPONIN I (test 0.005 ng/mL See_Comment [Automated code = 0726048452) message] The system which generated this result [...] biotin. Lab Interpretation Normal (test code = 67285-3) [facility] Springs[facility]-TERMINAL [id number] 22:01:45 Test Item Value Reference Range Interpretation Comments NT-proBNP (test code 107 pg/mL See_Comment [Autom ated = 3310733115) message] The system which generated this result transmitted reference range : <=450. The reference range was not used to interpret this result as normal/abnormal . MICA (test code = MICA) Biotin has been reported to cause a negative bias, interpret results relative to patient's use of biotin. Lab Interpretation Normal (test code = 50099-9) [facility] WITH [id number] 21:36:18 Test Item Value Reference Range Interpretation Comments WBC (test code = See_Comment [Automated 7236-2) message] The sy stem which generated this result transmitted reference range : 4.30 - 11.10 10*3/?L. The reference range was not used to interpret this result as normal/abnormal . RBC (test code = See_Comment L [Automated 834-8) message] The sy stem which generated this [...] (test code = 52.2 fL 39.0-49.9 H 23226-1) RDW-CV (test code = 16.0 % 12.0-15.5 H 788-0) PLT (test code = See_Comment [Automated 777-3) message] The sy stem which generated this result transmitted reference range : 166 - 358 10*3/ ?L. The reference r constantin was not used to interpret this result as normal/abnormal . MPV (test code = 9.9 fL 9.5-12.9 71385-7) NRBC/100 WBC (test See_Comment [Automat ed code = 1719050247) message] The system which generated this result transmitted reference range : 0.0 - 10.0 /100 WBCs. The refer ence range was not u sed to interpret th is result as normal/abnormal . NRBC x10^3 (test code <0.01 See_Comment [Auto mated = 3483557130) message] The s ystem which generated this result transmitted reference range : 10*3/?L. The reference range was not used to interpret this result as normal/abnormal . GRAN MAT (NEUT) % 59.1 % (test code = 770-8) IMM GRAN % (test code 0.40 % = 7061563575) LYMPH % (test code = 24.7 % 736-9) MONO % (test code = 14.7 % 5905-5) EOS % (test code = 0.7 % 713-8) BASO % (test code = 0.4 % 706-2) GRAN MAT x10^3(ANC) 3.25 10*3/uL 1.88-7.09 (test code = 0516936860) IMM GRAN x10^3 (test <0.03 0.00-0.06 code = 4022306402) LYMPH x10^3 (test code 1.36 10*3/uL 1.32-3.29 = 731-0) MONO x10^3 (test code 0.81 10*3/uL 0.33-0.92 = 742-7) EOS x10^3 (test code = 0.04 10*3/uL 0.03-0.39 711-2) BASO x10^3 (test code <0.03 0.01-0.07 = 704-7) Lab Interpretation Abnormal (test code = 92287-8) [facility]"
[2021-10-11] MEDS ORDERED: ONDANSETRON 4 MG/2 ML VIAL IV PRN (15:53)
[2021-10-11] MEDS ORDERED: BISACODYL 10 MG RECTAL SUPP PR PRN (15:54)
[2021-10-11] MEDS ORDERED: ACETAMINOPHEN 650MG/RECT SUPP PR PRN (15:54)
[2021-10-11] MEDS ORDERED: SCOPOLAMINE HYDROBROMIDE PATCH TD SCH (16:00)
[2021-10-11 16:21] VITALS: BMI 31.1
[2021-10-11 20:23] VITALS: O2SAT 92
[2021-10-11] MEDS: HYDROMORPHONE HCL 0.5 MG/0.5 ML INJ IV PRN (22:02)
[2021-10-12] MEDS: HYDROMORPHONE HCL 0.5 MG/0.5 ML INJ IV PRN ×3 (09:33→22:42)
[2021-10-13] MEDS: HYDROMORPHONE HCL 0.5 MG/0.5 ML INJ IV PRN ×2 (05:10→08:41)
[2021-10-13 08:20] VITALS: BP 85/54; TEMP 97.4
[2021-10-13] MEDS ORDERED: HYOSCYAMINE SULF 0.125 MG TAB PO PRN (10:40)
[2021-10-13] MEDS ORDERED: SCOPOLAMINE HYDROBROMIDE PATCH TD SCH (10:45)
== END 2021-10-13 15:33 | disposition expired | DRG 951 ==
LOC: 2ND 15:15
PROVIDERS: ADMIT Internal Medicine Hematology & Oncology; ATTEND Internal Medicine Hematology & Oncology
DX: Z51.5 Encounter for palliative care (principal); C78.00 Secondary malignant neoplasm of unspecified lung; C78.7 Secondary malignant neoplasm of liver and intrahepatic bile duct; C79.31 Secondary malignant neoplasm of brain; C50.919 Malignant neoplasm of unspecified site of unspecified female breast
CPT/HCPCS: J1170